=== PATIENT | male | born 1955 | race African-American/Black ===

== ENCOUNTER 2017-04-16 07:05 | Inpatient (IN) | payer MEDICAID ==
[~2017-04-16] VITALS: Ht 193 cm; Wt 126.1 kg
[2017-04-16] MEDS ORDERED: METHYLPREDNISOLONE SOD SUCC 125 MG/2 ML VIAL IV STA (07:55)
[2017-04-16] MEDS ORDERED: ONDANSETRON HCL 4MG/2ML VIAL IV STA (07:55)
[2017-04-16] MEDS ORDERED: MORPHINE SULFATE 4 MG/ML CPJ (NOT FOR IM USE) IV STA (07:55)
[2017-04-16] MEDS ORDERED: IPRATROPIUM/ALBUTEROL 0.5-3(2.5)MG/3ML NEB HHN ONE (08:00)
[2017-04-16 08:27] LABS: BASOPHILS % 0.5 % (0.0-2.0); EOSINOPHILS % 6.4 % (0.0-5.0); HEMATOCRIT. 37.9 % (42.0-52.0); HEMOGLOBIN. 12.5 g/dL (14.0-18.0); LYMPHOCYTES % 16.3 % (20.0-50.0); MEAN CORPUSCULAR HEMOGLOBIN 29.4 pg (28.0-32.0); MEAN CORPUSCULAR VOLUME 88.8 fL (80.0-94.0); MEAN PLATELET VOLUME 9.7 fl (7.4-10.4); MONOCYTES % 10.7 % (2.0-8.0); NEUTROPHILS % 66.1 % (40.0-76.0); PLATELET 175 x1000/uL (130-400); RED BLOOD CELL COUNT 4.27 mill/uL (4.7-6.1); RED CELL DISTRIBUTION WIDTH 15.7 % (11.6-14.6)
[2017-04-16 08:39] LABS: D-DIMER 0.81 mg/L FEU (<0.50); INR 1.1; PARTIAL THROMBOPLASTIN TIME 35.7 sec (23.4-31.0)
[2017-04-16 08:42] LABS: CARBON DIOXIDE 28 mEq/L (21-32); CHLORIDE 108 mEq/L (98-107); ETHANOL BLOOD < 10 mg/dL; TROPONIN I 0.03 ng/mL (0.00-0.04)
[2017-04-16 09:20] LABS: *AMPHETAMINES SCREEN URINE NEGATIVE (NEGATIVE); *BARBITURATES SCREEN URINE NEGATIVE (NEGATIVE); *BENZODIAZEPINES SCREEN URINE NEGATIVE (NEGATIVE); *COCAINE SCREEN URINE PRESUMTIVE POSITIVE (NEGATIVE); CANNABINOID URINE SCREEN NEGATIVE (NEGATIVE); METHADONE URINE SCREEN NEGATIVE (NEGATIVE); OPIATES URINE SCREEN NEGATIVE (NEGATIVE); PHENCYCLIDINE URINE SCREEN NEGATIVE (NEGATIVE)
[2017-04-16] MEDS ORDERED: FUROSEMIDE 40MG/4ML VIAL IVP ONE (11:30)
[2017-04-16] MEDS ORDERED: ACETAMINOPHEN 325MG TABLET PO PRN (11:45)
[2017-04-16] MEDS ORDERED: IPRATROPIUM/ALBUTEROL 0.5-3(2.5)MG/3ML NEB INH PRN (11:45)
[2017-04-16] MEDS ORDERED: MAGNESIUM/ALUMINUM HYDROXIDE/SIMETHICONE 30ML UDC PO PRN (11:45)
[2017-04-16] MEDS ORDERED: HYDROCODONE/ACETAMINOPHEN 5/325MG TABLET PO PRN (11:45)
[2017-04-16] MEDS ORDERED: DOCUSATE SODIUM 100MG CAPSULE PO PRN (11:45)
[2017-04-16] MEDS ORDERED: CEFTRIAXONE 1 G PREMIX 50 ML IV NR (12:30)
[2017-04-16] MEDS: CLONIDINE 0.1MG TABLET PO PRN (12:43)
[2017-04-16] MEDS: DILTIAZEM HCL 60MG TABLET PO SCH ×2 (12:44→17:43)
[2017-04-16] MEDS: AZITHROMYCIN 500 MG TABLET PO SCH (12:44)
[2017-04-16] MEDS ORDERED: IOHEXOL-300 100 ML BOTTLE ONE (13:24)
[2017-04-16] MEDS ORDERED: SODIUM CHLORIDE 0.9% 10ML VIAL ONE (13:24)
[2017-04-16 13:42] LABS: BG BASE EXCESS 2.3 mmol/L (-2.0-2.0); BG CARBOXYHEMOGLOBIN 3.1 % (0.5-1.5); BG FRACTION INSPIRED OXYGEN 28; BG HCO3 ACT 31.2 mmol/L (22.0-26.0); BG METHEMOGLOBIN 0.2 % (0.0-1.5); BG OXYGEN SATURATION 93.8 % (92.0-98.5); BG OXYHEMOGLOBIN 90.7 % (94.0-97.0); BG PCO2 68.3 mmHg (35.0-45.0); BG PH 7.278 (7.350-7.450); BG PO2 73.3 mmHg (75.0-100.0); BG SAMPLE SITE LEFT RADIAL; BG TOTAL HEMOGLOBIN 14.6 g/dL (12.0-18.0); BG VENT MODE NASAL CANNULA
[2017-04-16 14:58] VITALS: BP 144/78
[2017-04-16 15:00] VITALS: BP 144/78
[2017-04-16 16:00] VITALS: BP_SYST 141; BP_SYST 144; BP_DIAS 64; BP_DIAS 78
[2017-04-16 17:19] LABS: CREATINE KINASE MB FRACTION 3.7 ng/mL (0.5-3.6); TROPONIN I 0.02 ng/mL (0.00-0.04)
[2017-04-16] MEDS: FUROSEMIDE 40MG/4ML VIAL IV SCH (17:44)
[2017-04-16 18:46] LABS: CLARITY URINE CLEAR (CLEAR); COLOR URINE YELLOW (YELLOW); GLUCOSE URINE 1+ (NEGATIVE); KETONES URINE NEGATIVE (NEGATIVE); LEUKOCYTE ESTERASE URINE NEGATIVE (NEGATIVE); NITRITE URINE NEGATIVE (NEGATIVE); OCCULT BLOOD URINE NEGATIVE (NEGATIVE); PROTEIN URINE NEGATIVE (NEGATIVE); SPECIFIC GRAVITY URINE 1.017 (1.005-1.030)
[2017-04-16 20:00] VITALS: BP 143/82
[2017-04-16] MEDS: ENOXAPARIN 40MG/0.4ML SYR SUBCUT SCH (21:27)
[2017-04-17] VITALS: BP 131/81
[2017-04-17] MEDS: IPRATROPIUM/ALBUTEROL 0.5-3(2.5)MG/3ML NEB HHN SCH ×4 (00:18→22:40)
[2017-04-17] MEDS: DILTIAZEM HCL 60MG TABLET PO SCH ×4 (00:20→18:06)
[2017-04-17 00:48] LABS: CREATINE KINASE 174 IU/L (39-308); TROPONIN I < 0.02 ng/mL (0.00-0.04)
[2017-04-17 04:00] VITALS: BP 151/94
[2017-04-17 08:00] VITALS: BP 111/59
[2017-04-17] MEDS ORDERED: INFLUENZA VIRUS VACCINE 0.5ML SYR IM ONE (08:00)
[2017-04-17] MEDS: BUDESONIDE 0.5MG/2ML NEB HHN SCH ×2 (08:16→22:40)
[2017-04-17] MEDS: FUROSEMIDE 40MG/4ML VIAL IV SCH ×2 (08:55→18:06)
[2017-04-17] MEDS: AZITHROMYCIN 500 MG TABLET PO SCH (08:56)
[2017-04-17] MEDS: ASPIRIN 81MG EC TABLET PO SCH (08:56)
[2017-04-17] MEDS: ENOXAPARIN 40MG/0.4ML SYR SUBCUT SCH (08:56)
[2017-04-17] MEDS ORDERED: CEFTRIAXONE 1 G PREMIX 50 ML IV SCH (09:00)
[2017-04-17 10:08] LABS: CARBON DIOXIDE 35 mEq/L (21-32); CHLORIDE 97 mEq/L (98-107); HDL CHOLESTEROL 60 mg/dL (40-59); LDL CHOLESTEROL 77 mg/dL (5-100)
[2017-04-17 12:00] VITALS: BP 110/56
[2017-04-17 12:13] LABS: T4 FREE 1.05 ng/dL (0.76-1.46)
[2017-04-17 16:00] VITALS: BP 127/67
[2017-04-17 20:00] VITALS: BP 140/76
[2017-04-17] MEDS: ENOXAPARIN 30MG/0.3ML SYR SUBCUT SCH (21:37)
[2017-04-18] VITALS: BP 141/77
[2017-04-18] MEDS: DILTIAZEM HCL 60MG TABLET PO SCH ×2 (00:48→06:18)
[2017-04-18 04:00] VITALS: BP 146/93
[2017-04-18] MEDS: IPRATROPIUM/ALBUTEROL 0.5-3(2.5)MG/3ML NEB HHN SCH ×2 (05:00→09:11)
[2017-04-18] MEDS: ONDANSETRON HCL 4MG/2ML VIAL IV PRN ×2 (05:18→13:27)
[2017-04-18] MEDS ORDERED: INFLUENZA VIRUS VACCINE 0.5ML SYR IM ONE (06:00)
[2017-04-18 07:12] LABS: CARBON DIOXIDE 36 mEq/L (21-32)
[2017-04-18 07:30] LABS: CHLORIDE 100 mEq/L (98-107)
[2017-04-18 08:00] VITALS: BP 152/99
[2017-04-18] MEDS: BUDESONIDE 0.5MG/2ML NEB HHN SCH (09:11)
[2017-04-18] MEDS: FUROSEMIDE 40MG/4ML VIAL IV SCH (10:26)
[2017-04-18] MEDS: AZITHROMYCIN 500 MG TABLET PO SCH (10:26)
[2017-04-18] MEDS: ASPIRIN 81MG EC TABLET PO SCH (10:26)
[2017-04-18] MEDS: CLONIDINE 0.1MG TABLET PO PRN (10:27)
[2017-04-18] MEDS: ENOXAPARIN 30MG/0.3ML SYR SUBCUT SCH (10:27)
[2017-04-18] MEDS ORDERED: CEFTRIAXONE 1 G PREMIX 50 ML IV SCH (11:00)
[2017-04-18] MEDS ORDERED: POTASSIUM CHLORIDE 20MEQ TABLET SR PO NR (11:15)
[2017-04-18] MEDS ORDERED: DILT240C91 PO (11:56)
[2017-04-18] MEDS ORDERED: FURO-151 PO (11:56)
[2017-04-18] MEDS ORDERED: AZIT500T5 PO (11:56)
[2017-04-18] MEDS ORDERED: KDUR20 PO (11:56)
[2017-04-18] MEDS ORDERED: PULM50 HHN (11:56)
[2017-04-18] MEDS ORDERED: ASPI-1158 PO (11:56)
[2017-04-18] MEDS ORDERED: ALBU6.7H INH (11:58)
[2017-04-18 12:00] VITALS: BP 125/81
[2017-04-18 13:02] VITALS: BP 125/81
[2017-04-18] MEDS ORDERED: DILTIAZEM HCL 240MG ER (24HR) PO SCH (21:00)
== END 2017-04-18 13:50 | disposition home or self-care (01) | DRG 816 ==
LOC: ER 07:29 → EDBEDREQ 08:09 → 5WST 12:09 → EDBEDREQ 12:12 → EDBEDREQTM 12:12 → ENRESERV 12:17
PROVIDERS: ADMIT Internal Medicine; ATTEND Internal Medicine
PROC: 5A09357 Assistance with Respiratory Ventilation, Less than 24 Consecutive Hours, Continuous Positive Airway Pressure (ICD-10-PCS; principal; 2017-04-16)
DX: T40.5X1A Poisoning by cocaine, accidental (unintentional), initial encounter (principal); J96.02 Acute respiratory failure with hypercapnia; G93.40 Encephalopathy, unspecified; I50.33 Acute on chronic diastolic (congestive) heart failure; J44.1 Chronic obstructive pulmonary disease with (acute) exacerbation; I11.0 Hypertensive heart disease with heart failure; E87.2 Acidosis; B19.20 Unspecified viral hepatitis C without hepatic coma; F14.10 Cocaine abuse, uncomplicated; G47.30 Sleep apnea, unspecified; E66.01 Morbid (severe) obesity due to excess calories; F17.210 Nicotine dependence, cigarettes, uncomplicated
CPT/HCPCS: 36415; 36600; 71010; 74177; 80048; 80053; 80061; 80305; 81001; 82105; 82375; 82550; 82553; 82805; 83605; 83690; 83735; 83880; 84439; 84443; 84481; 84484; 85025; 85379; 85610; 85730; 87040; 87070; 87086; 90686; 92950; 93005; 93306; 93970; 94640; 94660; 96365; 96375; 99285; 99406; A4216; G0482; J0696; J1650; J1940; J2270; J2405; J2930; J7030; J7620; J7626; Q9967

== ENCOUNTER 2017-08-03 04:59 | Inpatient (IN) | payer MEDICAID ==
[~2017-08-03] VITALS: Ht 188 cm; Wt 121.6 kg
[~2017-08-03 04:59] MED LIST: ALBU6.7H INH; ASPI-1158 PO; AZIT500T5 PO; DILT240C91 PO; FURO-151 PO; KDUR20 PO; PULM50 HHN
[2017-08-03 05:40] LABS: BASOPHILS % 0.6 % (0.0-2.0); HEMATOCRIT. 41.9 % (42.0-52.0); HEMOGLOBIN. 14.1 g/dL (14.0-18.0); MEAN CORPUSCULAR HEMOGLOBIN 29.1 pg (28.0-32.0); MEAN CORPUSCULAR VOLUME 86.6 fL (80.0-94.0); MEAN PLATELET VOLUME 9.6 fl (7.4-10.4); MONOCYTES % 9.6 % (2.0-8.0); NEUTROPHILS % 69.8 % (40.0-76.0); PLATELET 189 x1000/uL (130-400); RED BLOOD CELL COUNT 4.84 mill/uL (4.7-6.1); RED CELL DISTRIBUTION WIDTH 15.3 % (11.6-14.6)
[2017-08-03 05:57] LABS: CARBON DIOXIDE 27 mEq/L (21-32); CHLORIDE 106 mEq/L (98-107); TROPONIN I 0.03 ng/mL (0.00-0.04)
[2017-08-03] MEDS ORDERED: METHYLPREDNISOLONE SOD SUCC 125 MG/2 ML VIAL IV STA (06:00)
[2017-08-03] MEDS ORDERED: IPRATROPIUM BROMIDE (0.02%) 0.5MG/2.5ML NEB HHN STA (06:00)
[2017-08-03] MEDS ORDERED: ALBUTEROL (0.083%) 2.5MG/3ML NEB HHN STA (06:00)
[2017-08-03] MEDS ORDERED: CLONIDINE 0.1MG TABLET PO PRN (07:08)
[2017-08-03 17:20] VITALS: BP 135/82
[2017-08-03] MEDS ORDERED: HYDROCODONE/ACETAMINOPHEN 5/325MG TABLET PO PRN (17:30)
[2017-08-03] MEDS: METHYLPREDNISOLONE SOD SUCC 40 MG/ML VIAL IV SCH (18:24)
[2017-08-03] MEDS: ENOXAPARIN 30MG/0.3ML SYR SUBCUT SCH (18:24)
[2017-08-03] MEDS ORDERED: LEVOFLOXACIN 500MG PREMIX 100 ML IV SCH (19:30)
[2017-08-03 20:00] VITALS: BP 132/82
[2017-08-03] MEDS: ALBUTEROL (0.083%) 2.5MG/3ML NEB HHN SCH (20:31)
[2017-08-03] MEDS: OMEPRAZOLE 20MG CAPSULE EXTENDED RELEASE PO SCH (20:51)
[2017-08-04] VITALS: BP 124/74
[2017-08-04] MEDS: METHYLPREDNISOLONE SOD SUCC 40 MG/ML VIAL IV SCH ×2 (01:13→09:04)
[2017-08-04] MEDS: ALBUTEROL (0.083%) 2.5MG/3ML NEB HHN SCH ×4 (03:38→12:40)
[2017-08-04 04:00] VITALS: BP 135/71
[2017-08-04] MEDS: ENOXAPARIN 30MG/0.3ML SYR SUBCUT SCH (06:26)
[2017-08-04] MEDS: OMEPRAZOLE 20MG CAPSULE EXTENDED RELEASE PO SCH (06:26)
[2017-08-04 08:00] VITALS: BP 105/55
[2017-08-04] MEDS ORDERED: BUDESONIDE 0.5MG/2ML NEB HHN SCH (08:00)
[2017-08-04] MEDS ORDERED: FUROSEMIDE 40MG/4ML VIAL IVP SCH (08:15)
[2017-08-04] MEDS ORDERED: FURO-151 PO (10:25)
[2017-08-04] MEDS ORDERED: PULM50 HHN (10:25)
[2017-08-04] MEDS ORDERED: NICO-645 TD (10:27)
[2017-08-04] MEDS ORDERED: DILT240C91 PO (10:30)
[2017-08-04] MEDS ORDERED: POTA20TA82 PO (10:30)
[2017-08-04 12:00] VITALS: BP 106/70
== END 2017-08-04 13:00 | disposition home or self-care (01) | DRG 194 ==
LOC: ER 05:07 → 8WST 06:00 → EDBEDREQ 06:07 → EDBEDREQTM 06:07 → ENRESERV 13:33
PROVIDERS: ADMIT Internal Medicine; ATTEND Internal Medicine
DX: I13.0 Hypertensive heart and chronic kidney disease with heart failure and stage 1 through stage 4 chronic kidney disease, or unspecified chronic kidney disease (principal); N17.9 Acute kidney failure, unspecified; E44.0 Moderate protein-calorie malnutrition; I50.33 Acute on chronic diastolic (congestive) heart failure; J44.9 Chronic obstructive pulmonary disease, unspecified; Z60.2 Problems related to living alone; F17.210 Nicotine dependence, cigarettes, uncomplicated; N18.9 Chronic kidney disease, unspecified; E66.9 Obesity, unspecified; B19.20 Unspecified viral hepatitis C without hepatic coma; Z87.01 Personal history of pneumonia (recurrent); Z86.19 Personal history of other infectious and parasitic diseases; Z79.899 Other long term (current) drug therapy; Z79.82 Long term (current) use of aspirin; Z71.6 Tobacco abuse counseling; Z68.34 Body mass index [BMI] 34.0-34.9, adult; Z71.3 Dietary counseling and surveillance
CPT/HCPCS: 36415; 71045; 80053; 83605; 83880; 84484; 85025; 87040; 93005; 94640; 96374; 99285; J1650; J1940; J1956; J2920; J2930; J7050; J7611; J7626

== ENCOUNTER 2017-10-19 06:51 | Inpatient (IN) | payer SELFPAY ==
[~2017-10-19] VITALS: Ht 193 cm; Wt 117.5 kg
[~2017-10-19 06:51] MED LIST changes: -AZIT500T5 PO; +NICO-645 TD; +POTA20TA82 PO
[2017-10-19] MEDS ORDERED: METHYLPREDNISOLONE SOD SUCC 125 MG/2 ML VIAL IV STA (07:06)
[2017-10-19] MEDS ORDERED: IPRATROPIUM BROMIDE (0.02%) 0.5MG/2.5ML NEB HHN STA (07:06)
[2017-10-19 07:29] LABS: BASOPHILS % 0.7 % (0.0-2.0); EOSINOPHILS % 4.2 % (0.0-5.0); HEMATOCRIT. 40.4 % (42.0-52.0); HEMOGLOBIN. 13.4 g/dL (14.0-18.0); LYMPHOCYTES % 21.4 % (20.0-50.0); MEAN CORPUSCULAR HEMOGLOBIN 29.2 pg (28.0-32.0); MEAN CORPUSCULAR VOLUME 87.9 fL (80.0-94.0); MEAN PLATELET VOLUME 9.4 fl (7.4-10.4); MONOCYTES % 8.7 % (2.0-8.0); PLATELET 239 x1000/uL (130-400); RED CELL DISTRIBUTION WIDTH 15.5 % (11.6-14.6)
[2017-10-19 07:37] LABS: CHLORIDE 108 mEq/L (98-107)
[2017-10-19] MEDS: ALBUTEROL (0.083%) 2.5MG/3ML NEB HHN SCH ×3 (07:40→08:30)
[2017-10-19] MEDS ORDERED: FUROSEMIDE 40MG/4ML VIAL IVP ONE (08:15)
[2017-10-19] MEDS ORDERED: NITROGLYCERIN OINT 1GM/INCH UDPKT TD ONE (08:30)
[2017-10-19] MEDS ORDERED: IPRATROPIUM/ALBUTEROL 0.5-3(2.5)MG/3ML NEB HHN PRN (11:45)
[2017-10-19 12:00] VITALS: BP 151/83
[2017-10-19 13:00] VITALS: BP 151/83
[2017-10-19] MEDS: BUDESONIDE 0.5MG/2ML NEB HHN SCH (13:50)
[2017-10-19] MEDS: IPRATROPIUM/ALBUTEROL 0.5-3(2.5)MG/3ML NEB HHN SCH ×2 (13:50→21:17)
[2017-10-19] MEDS: AMLODIPINE 5MG TABLET PO SCH ×2 (14:26→20:58)
[2017-10-19] MEDS: METHYLPREDNISOLONE SOD SUCC 40 MG/ML VIAL IV SCH ×2 (14:27→20:58)
[2017-10-19] MEDS: ENOXAPARIN 30MG/0.3ML SYR SUBCUT SCH ×2 (14:27→22:56)
[2017-10-19 16:00] VITALS: BP 143/79
[2017-10-19] MEDS ORDERED: CLONIDINE 0.1MG TABLET PO PRN (16:45)
[2017-10-19] MEDS: FUROSEMIDE 40MG/4ML VIAL IVP SCH (18:29)
[2017-10-19 20:00] VITALS: BP 150/93
[2017-10-19] MEDS: DILTIAZEM HCL 240MG ER (24HR) PO SCH (20:58)
[2017-10-19 22:02] LABS: CLARITY URINE CLEAR (CLEAR); COLOR URINE YELLOW (YELLOW); KETONES URINE NEGATIVE (NEGATIVE); LEUKOCYTE ESTERASE URINE 2+ (NEGATIVE); NITRITE URINE NEGATIVE (NEGATIVE); OCCULT BLOOD URINE 3+ (NEGATIVE); PROTEIN URINE 1+ (NEGATIVE); SPECIFIC GRAVITY URINE 1.016 (1.005-1.030)
[2017-10-19 22:14] LABS: *AMPHETAMINES SCREEN URINE NEGATIVE (NEGATIVE); *BARBITURATES SCREEN URINE NEGATIVE (NEGATIVE); *BENZODIAZEPINES SCREEN URINE NEGATIVE (NEGATIVE); *COCAINE SCREEN URINE PRESUMTIVE POSITIVE (NEGATIVE); CANNABINOID URINE SCREEN NEGATIVE (NEGATIVE); METHADONE URINE SCREEN NEGATIVE (NEGATIVE); OPIATES URINE SCREEN NEGATIVE (NEGATIVE); PHENCYCLIDINE URINE SCREEN NEGATIVE (NEGATIVE)
[2017-10-20] VITALS: BP 128/89
[2017-10-20] MEDS: BUDESONIDE 0.5MG/2ML NEB HHN SCH ×3 (02:14→20:16)
[2017-10-20 04:00] VITALS: BP 127/84
[2017-10-20] MEDS: METHYLPREDNISOLONE SOD SUCC 40 MG/ML VIAL IV SCH (05:52)
[2017-10-20 08:00] VITALS: BP 140/84
[2017-10-20] MEDS: IPRATROPIUM/ALBUTEROL 0.5-3(2.5)MG/3ML NEB HHN SCH ×3 (08:41→20:17)
[2017-10-20] MEDS: FUROSEMIDE 40MG/4ML VIAL IVP SCH ×2 (09:49→17:38)
[2017-10-20] MEDS: ASPIRIN 81MG EC TABLET PO SCH (09:50)
[2017-10-20] MEDS: AMLODIPINE 5MG TABLET PO SCH ×2 (09:50→20:25)
[2017-10-20] MEDS: DILTIAZEM HCL 240MG ER (24HR) PO SCH ×2 (09:50→20:24)
[2017-10-20] MEDS: ENOXAPARIN 30MG/0.3ML SYR SUBCUT SCH (11:53)
[2017-10-20 12:00] VITALS: BP 139/83
[2017-10-20] MEDS: TAMSULOSIN HCL 0.4MG SR CAPSULE PO SCH (12:01)
[2017-10-20 16:00] VITALS: BP 128/75
[2017-10-20 16:42] LABS: HEPATITIS B SURFACE ANTIGEN NEGATIVE
[2017-10-20 17:10] LABS: HEPATITIS B CORE AB IGM NEGATIVE
[2017-10-20 17:12] LABS: HEPATITIS A AB IGM NEGATIVE (NEGATIVE)
[2017-10-20 20:00] VITALS: BP 128/67
[2017-10-21] VITALS: BP 130/75
[2017-10-21] MEDS: ENOXAPARIN 30MG/0.3ML SYR SUBCUT SCH (00:02)
[2017-10-21] MEDS: IPRATROPIUM/ALBUTEROL 0.5-3(2.5)MG/3ML NEB HHN SCH ×2 (02:19→07:39)
[2017-10-21 04:00] VITALS: BP 123/77
[2017-10-21] MEDS: BUDESONIDE 0.5MG/2ML NEB HHN SCH (07:39)
[2017-10-21 08:00] VITALS: BP 116/68
[2017-10-21] MEDS: TAMSULOSIN HCL 0.4MG SR CAPSULE PO SCH (08:46)
[2017-10-21] MEDS: ASPIRIN 81MG EC TABLET PO SCH (08:47)
[2017-10-21] MEDS: FUROSEMIDE 40MG/4ML VIAL IVP SCH (08:47)
[2017-10-21] MEDS: AMLODIPINE 5MG TABLET PO SCH (08:47)
[2017-10-21] MEDS: DILTIAZEM HCL 240MG ER (24HR) PO SCH (08:47)
[2017-10-21] MEDS ORDERED: PREDNISONE 20MG TABLET PO SCH (09:00)
[2017-10-21 10:47] VITALS: BP 113/60
[2017-10-21 10:48] VITALS: BP 113/60
== END 2017-10-21 12:50 | disposition home or self-care (01) | DRG 194 ==
LOC: ER 06:55 → 5WST 11:25 → ENRESERV 11:47 → EDBEDREQ 12:09
PROVIDERS: ADMIT Internal Medicine; ATTEND Internal Medicine
DX: I13.0 Hypertensive heart and chronic kidney disease with heart failure and stage 1 through stage 4 chronic kidney disease, or unspecified chronic kidney disease (principal); E43 Unspecified severe protein-calorie malnutrition; I42.9 Cardiomyopathy, unspecified; B19.20 Unspecified viral hepatitis C without hepatic coma; I50.43 Acute on chronic combined systolic (congestive) and diastolic (congestive) heart failure; D64.9 Anemia, unspecified; Z68.31 Body mass index [BMI] 31.0-31.9, adult; E66.9 Obesity, unspecified; F14.90 Cocaine use, unspecified, uncomplicated; J44.1 Chronic obstructive pulmonary disease with (acute) exacerbation; N18.9 Chronic kidney disease, unspecified; Z91.14 Patient's other noncompliance with medication regimen
CPT/HCPCS: 36415; 71045; 80053; 80305; 81003; 83880; 84484; 85025; 86705; 86709; 86803; 87340; 93005; 93306; 94640; 94644; 96374; 96375; 99285; J1650; J1940; J2920; J2930; J7512; J7611; J7620; J7626; A4315

== ENCOUNTER 2017-11-09 19:21 | Inpatient (IN) | payer SELFPAY ==
[~2017-11-09] VITALS: Ht 193 cm; Wt 112.6 kg
[~2017-11-09 19:21] MED LIST changes: -KDUR20 PO; -NICO-645 TD
[2017-11-09 20:27] LABS: CHLORIDE 106 mEq/L (98-107)
[2017-11-09 20:28] LABS: BASOPHILS % 0.5 % (0.0-2.0); EOSINOPHILS % 2.1 % (0.0-5.0); HEMATOCRIT. 37.9 % (42.0-52.0); HEMOGLOBIN. 12.9 g/dL (14.0-18.0); LYMPHOCYTES % 12.9 % (20.0-50.0); MEAN CORPUSCULAR HEMOGLOBIN 29.3 pg (28.0-32.0); MEAN CORPUSCULAR VOLUME 86.3 fL (80.0-94.0); MEAN PLATELET VOLUME 10.2 fl (7.4-10.4); MONOCYTES % 8.7 % (2.0-8.0); NEUTROPHILS % 75.8 % (40.0-76.0); PLATELET 157 x1000/uL (130-400); RED BLOOD CELL COUNT 4.39 mill/uL (4.7-6.1); RED CELL DISTRIBUTION WIDTH 15.6 % (11.6-14.6)
[2017-11-09 20:29] LABS: INR 1.1; PROTHROMBIN TIME 10.9 sec (9.4-11.6)
[2017-11-09] MEDS ORDERED: ENALAPRIL 2.5MG/2ML VIAL 2ML IV ONE (21:00)
[2017-11-09] MEDS ORDERED: FUROSEMIDE 40MG/4ML VIAL IVP ONE (21:00)
[2017-11-09] MEDS ORDERED: ASPIRIN 325MG EC TABLET PO ONE (21:00)
[2017-11-09] MEDS ORDERED: GUAIFENESIN 200MG/10ML SUGAR FREE UDC PO PRN (22:00)
[2017-11-09] MEDS ORDERED: DIPHENHYDRAMINE 50MG/ML VIAL IV PRN (22:00)
[2017-11-09] MEDS ORDERED: IPRATROPIUM/ALBUTEROL 0.5-3(2.5)MG/3ML NEB INH PRN (22:00)
[2017-11-09] MEDS ORDERED: ACETAMINOPHEN 650MG/20.3ML UDC GT PRN (22:00)
[2017-11-09] MEDS ORDERED: NA PHOS,M-B/NA PHOS,DI-BA ENEMA 118ML PR PRN (22:00)
[2017-11-09] MEDS ORDERED: ACETAMINOPHEN 650MG SUPP PR PRN (22:00)
[2017-11-09] MEDS ORDERED: ENOXAPARIN 40MG/0.4ML SYR SUBCUT SCH (22:00)
[2017-11-09] MEDS ORDERED: ACETAMINOPHEN 325MG TABLET PO PRN (22:00)
[2017-11-09] MEDS ORDERED: HYDROCODONE/ACETAMINOPHEN 5/325MG TABLET PO PRN (22:00)
[2017-11-09] MEDS ORDERED: CLONIDINE 0.1MG TABLET PO PRN (22:00)
[2017-11-09] MEDS ORDERED: NITROGLYCERIN 0.4MG TABLET SL SL PRN (22:15)
[2017-11-09 23:35] LABS: CLARITY URINE CLEAR (CLEAR); COLOR URINE YELLOW (YELLOW); KETONES URINE NEGATIVE (NEGATIVE); LEUKOCYTE ESTERASE URINE NEGATIVE (NEGATIVE); NITRITE URINE NEGATIVE (NEGATIVE); OCCULT BLOOD URINE NEGATIVE (NEGATIVE); PH URINE 7.5 (4.5-8.0); PROTEIN URINE NEGATIVE (NEGATIVE); SPECIFIC GRAVITY URINE 1.006 (1.005-1.030); UROBILINOGEN URINE 0.2 E.U./dL (0.2-1.0)
[2017-11-09 23:48] LABS: *AMPHETAMINES SCREEN URINE NEGATIVE (NEGATIVE); *BARBITURATES SCREEN URINE NEGATIVE (NEGATIVE); *BENZODIAZEPINES SCREEN URINE NEGATIVE (NEGATIVE); *COCAINE SCREEN URINE PRESUMTIVE POSITIVE (NEGATIVE); METHADONE URINE SCREEN NEGATIVE (NEGATIVE); OPIATES URINE SCREEN NEGATIVE (NEGATIVE)
[2017-11-09 23:49] LABS: CANNABINOID URINE SCREEN NEGATIVE (NEGATIVE); PHENCYCLIDINE URINE SCREEN NEGATIVE (NEGATIVE)
[2017-11-10] MEDS: MAGNESIUM/ALUMINUM HYDROXIDE/SIMETHICONE 30ML UDC PO PRN ×2 (03:19→18:45)
[2017-11-10] MEDS: ONDANSETRON HCL 4MG/2ML VIAL IV PRN ×2 (03:19→18:24)
[2017-11-10 04:10] VITALS: BP 97/73
[2017-11-10] MEDS ORDERED: LORAZEPAM 0.5MG TABLET PO PRN (04:47)
[2017-11-10 07:13] LABS: BASOPHILS % 0.4 % (0.0-2.0); EOSINOPHILS % 2.4 % (0.0-5.0); HEMATOCRIT. 39.7 % (42.0-52.0); HEMOGLOBIN. 13.2 g/dL (14.0-18.0); LYMPHOCYTES % 15.5 % (20.0-50.0); MEAN CORPUSCULAR HEMOGLOBIN 28.9 pg (28.0-32.0); MEAN CORPUSCULAR VOLUME 86.6 fL (80.0-94.0); MEAN PLATELET VOLUME 10.9 fl (7.4-10.4); MONOCYTES % 11.5 % (2.0-8.0); NEUTROPHILS % 70.2 % (40.0-76.0); PLATELET 172 x1000/uL (130-400); RED BLOOD CELL COUNT 4.58 mill/uL (4.7-6.1)
[2017-11-10 08:00] VITALS: BP 117/72
[2017-11-10 08:23] LABS: CHLORIDE 104 mEq/L (98-107)
[2017-11-10 08:55] LABS: LDL CHOLESTEROL 74 mg/dL (5-100)
[2017-11-10 08:57] LABS: CREATINE KINASE 72 IU/L (39-308); HDL CHOLESTEROL 64 mg/dL (40-59)
[2017-11-10 09:00] LABS: CREATINE KINASE MB FRACTION 1.5 ng/mL (0.5-3.6)
[2017-11-10] MEDS: FUROSEMIDE 40MG/4ML VIAL IV SCH (09:31)
[2017-11-10] MEDS: SODIUM CHLORIDE 0.9% INJ 3ML FLUSH IVF SCH ×3 (09:31→22:30)
[2017-11-10] MEDS: ENOXAPARIN 30MG/0.3ML SYR SUBCUT SCH ×2 (09:32→22:30)
[2017-11-10 12:00] VITALS: BP 130/94
[2017-11-10 16:51] VITALS: BP 117/87
[2017-11-10 20:00] VITALS: BP 128/96
[2017-11-10] MEDS ORDERED: FAMOTIDINE 20MG TABLET PO SCH (21:00)
[2017-11-11] VITALS: BP 118/94
[2017-11-11 01:15] LABS: CREATINE KINASE MB FRACTION 1.3 ng/mL (0.5-3.6)
[2017-11-11 04:00] VITALS: BP 125/88
[2017-11-11] MEDS: SODIUM CHLORIDE 0.9% INJ 3ML FLUSH IVF SCH (05:12)
[2017-11-11 08:00] VITALS: BP 126/83
[2017-11-11] MEDS: ENOXAPARIN 30MG/0.3ML SYR SUBCUT SCH (08:36)
[2017-11-11] MEDS ORDERED: ASPIRIN 81MG TABLET PO SCH (09:00)
[2017-11-11 09:12] LABS: CREATINE KINASE 50 IU/L (39-308)
[2017-11-11 09:13] LABS: CREATINE KINASE MB FRACTION 1.5 ng/mL (0.5-3.6)
[2017-11-11] MEDS: FUROSEMIDE 40MG/4ML VIAL IV SCH (09:34)
[2017-11-11] MEDS ORDERED: LOSARTAN POTASSIUM 25 MG TABLET PO SCH (10:00)
[2017-11-11 10:15] VITALS: BP 105/66
[2017-11-11 12:00] VITALS: BP 99/63
[2017-11-11 14:56] LABS: CREATINE KINASE 50 IU/L (39-308)
[2017-11-11 14:57] LABS: CREATINE KINASE MB FRACTION 1.7 ng/mL (0.5-3.6)
== END 2017-11-11 16:12 | disposition home or self-care (01) | DRG 203 ==
LOC: EDBEDREQ 21:12 → EDBEDREQTM 21:12 → ER 21:27 → 7WST 21:28 → ENRESERV 11-10 03:40
PROVIDERS: ADMIT Family Medicine; ATTEND Family Medicine
DX: R07.89 Other chest pain (principal); I11.0 Hypertensive heart disease with heart failure; I50.9 Heart failure, unspecified; B19.20 Unspecified viral hepatitis C without hepatic coma; J44.9 Chronic obstructive pulmonary disease, unspecified; F17.200 Nicotine dependence, unspecified, uncomplicated; F14.90 Cocaine use, unspecified, uncomplicated; F10.10 Alcohol abuse, uncomplicated; E78.5 Hyperlipidemia, unspecified; E66.9 Obesity, unspecified; Z68.30 Body mass index [BMI] 30.0-30.9, adult
CPT/HCPCS: 36415; 71045; 80053; 80061; 80305; 81003; 82550; 82553; 83880; 84484; 85025; 85379; 85610; 93005; 93306; 94640; 96374; 96375; 96376; 99285; J1650; J1940; J2405; J3490; J7620

== ENCOUNTER 2018-01-21 05:18 | Inpatient (IN) | payer SELFPAY ==
[~2018-01-21] VITALS: Ht 193 cm; Wt 129.3 kg
[2018-01-21] MEDS ORDERED: IPRATROPIUM BROMIDE (0.02%) 0.5MG/2.5ML NEB HHN STA (06:23)
[2018-01-21] MEDS ORDERED: ALBUTEROL (0.083%) 2.5MG/3ML NEB HHN STA (06:23)
[2018-01-21] MEDS ORDERED: METHYLPREDNISOLONE SOD SUCC 125 MG/2 ML VIAL IV STA (06:23)
[2018-01-21] MEDS ORDERED: FUROSEMIDE 40MG/4ML VIAL IV STA (06:23)
[2018-01-21 07:15] LABS: BASOPHILS % 0.6 % (0.0-2.0); EOSINOPHILS % 2.7 % (0.0-5.0); HEMATOCRIT. 35.5 % (42.0-52.0); HEMOGLOBIN. 11.6 g/dL (14.0-18.0); LYMPHOCYTES % 24.4 % (20.0-50.0); MEAN CORPUSCULAR HEMOGLOBIN 28.4 pg (28.0-32.0); MEAN CORPUSCULAR VOLUME 86.8 fL (80.0-94.0); MEAN PLATELET VOLUME 9.9 fl (7.4-10.4); MONOCYTES % 10.9 % (2.0-8.0); NEUTROPHILS % 61.4 % (40.0-76.0); PLATELET 156 x1000/uL (130-400); RED BLOOD CELL COUNT 4.09 mill/uL (4.7-6.1); RED CELL DISTRIBUTION WIDTH 16.9 % (11.6-14.6)
[2018-01-21 07:22] LABS: CHLORIDE 110 mEq/L (98-107); INR 1.1; PROTHROMBIN TIME 11.7 sec (9.4-11.6)
[2018-01-21] MEDS ORDERED: ACETAMINOPHEN 325MG TABLET PO PRN (08:45)
[2018-01-21] MEDS ORDERED: POTASSIUM CHLORIDE 20MEQ TABLET SR PO SCH (11:00)
[2018-01-21] MEDS ORDERED: ONDANSETRON HCL 4MG/2ML VIAL IV PRN (16:30)
[2018-01-21] MEDS ORDERED: DIPHENHYDRAMINE 50MG/ML VIAL IV PRN (16:30)
[2018-01-21] MEDS ORDERED: MAGNESIUM/ALUMINUM HYDROXIDE/SIMETHICONE 30ML UDC PO PRN (16:30)
[2018-01-21] MEDS ORDERED: IPRATROPIUM/ALBUTEROL 0.5-3(2.5)MG/3ML NEB INH PRN (16:30)
[2018-01-21] MEDS ORDERED: KETOROLAC 15MG/ML VIAL IV PRN (16:30)
[2018-01-21] MEDS ORDERED: CLONIDINE 0.1MG TABLET PO PRN (16:30)
[2018-01-21] MEDS ORDERED: DOCUSATE SODIUM 100MG CAPSULE PO PRN (16:30)
[2018-01-21] MEDS ORDERED: NITROGLYCERIN 0.4MG TABLET SL SL PRN (16:30)
[2018-01-21] MEDS ORDERED: LORAZEPAM 2MG/ML CPJ IV PRN (16:30)
[2018-01-21] MEDS ORDERED: GUAIFENESIN 200MG/10ML SUGAR FREE UDC PO PRN (16:30)
[2018-01-21 17:26] LABS: CREATINE KINASE 123 IU/L (39-308)
[2018-01-21] MEDS ORDERED: ZOLPIDEM TARTRATE 5MG TABLET PO PRN (21:00)
[2018-01-21] MEDS ORDERED: NA PHOS,M-B/NA PHOS,DI-BA ENEMA 118ML PR PRN (21:00)
[2018-01-21] MEDS ORDERED: FUROSEMIDE 40MG/4ML VIAL IVP SCH (21:00)
[2018-01-21 22:00] VITALS: BP 143/90
[2018-01-21] MEDS: LISINOPRIL 20MG TABLET PO SCH (22:19)
[2018-01-21] MEDS: FAMOTIDINE 20MG TABLET PO SCH (22:19)
[2018-01-21] MEDS: ENOXAPARIN 40MG/0.4ML SYR SUBCUT SCH (22:20)
[2018-01-21] MEDS: SPIRONOLACTONE 25MG TABLET PO SCH (22:20)
[2018-01-22] VITALS: BP 130/80
[2018-01-22 00:48] LABS: CREATINE KINASE 148 IU/L (39-308)
[2018-01-22 00:49] LABS: CREATINE KINASE MB FRACTION 3.4 ng/mL (0.5-3.6)
[2018-01-22 04:00] VITALS: BP 136/88
[2018-01-22 08:00] VITALS: BP 130/90
[2018-01-22] MEDS ORDERED: ASPIRIN 325MG EC TABLET PO SCH (09:00)
[2018-01-22] MEDS ORDERED: FUROSEMIDE 40MG TABLET PO SCH (09:00)
[2018-01-22] MEDS: LISINOPRIL 20MG TABLET PO SCH (09:15)
[2018-01-22] MEDS: SPIRONOLACTONE 25MG TABLET PO SCH (09:15)
[2018-01-22] MEDS: FAMOTIDINE 20MG TABLET PO SCH (09:15)
[2018-01-22] MEDS: ENOXAPARIN 40MG/0.4ML SYR SUBCUT SCH (09:15)
[2018-01-22 10:33] VITALS: BP 130/90
== END 2018-01-22 11:50 | disposition home or self-care (01) | DRG 194 ==
LOC: ER 05:21 → EDBEDREQ 08:14 → ENRESERV 19:56 → OBSVTOIN 21:21 → 8WST 21:21
PROVIDERS: ADMIT Internal Medicine; ATTEND Internal Medicine
DX: I11.0 Hypertensive heart disease with heart failure (principal); N17.0 Acute kidney failure with tubular necrosis; I50.43 Acute on chronic combined systolic (congestive) and diastolic (congestive) heart failure; J44.9 Chronic obstructive pulmonary disease, unspecified; F10.11 Alcohol abuse, in remission; F19.11 Other psychoactive substance abuse, in remission; E44.1 Mild protein-calorie malnutrition; D64.9 Anemia, unspecified; E87.0 Hyperosmolality and hypernatremia; Z87.891 Personal history of nicotine dependence; Z68.34 Body mass index [BMI] 34.0-34.9, adult; Z79.899 Other long term (current) drug therapy
CPT/HCPCS: 36415; 71045; 80053; 80061; 82550; 82553; 83036; 83605; 83690; 83880; 84484; 85025; 85610; 87040; 93005; 93970; 94640; G0378; J1650; J1940; J2930; J7611

== ENCOUNTER 2018-01-29 06:57 | Inpatient (IN) | payer SELFPAY ==
[~2018-01-29] VITALS: Ht 193 cm; Wt 124.7 kg
[2018-01-29] MEDS ORDERED: METHYLPREDNISOLONE SOD SUCC 125 MG/2 ML VIAL IV STA (07:08)
[2018-01-29] MEDS ORDERED: FUROSEMIDE 40MG/4ML VIAL IV STA (07:08)
[2018-01-29] MEDS ORDERED: IPRATROPIUM/ALBUTEROL 0.5-3(2.5)MG/3ML NEB HHN ONE (07:15)
[2018-01-29 08:00] LABS: HEMOGLOBIN. 11.9 g/dL (14.0-18.0); MEAN CORPUSCULAR HEMOGLOBIN 27.9 pg (28.0-32.0); MEAN CORPUSCULAR VOLUME 86.3 fL (80.0-94.0); MEAN PLATELET VOLUME 9.8 fl (7.4-10.4); PLATELET 179 x1000/uL (130-400); RED BLOOD CELL COUNT 4.28 mill/uL (4.7-6.1); RED CELL DISTRIBUTION WIDTH 16.3 % (11.6-14.6)
[2018-01-29 08:04] LABS: CHLORIDE 107 mEq/L (98-107)
[2018-01-29 08:07] LABS: INR 1.1; PARTIAL THROMBOPLASTIN TIME 34.6 sec (23.4-31.0); PROTHROMBIN TIME 11.4 sec (9.4-11.6)
[2018-01-29 09:15] LABS: PLATELET ESTIMATE NORMAL
[2018-01-29] MEDS ORDERED: LORAZEPAM 0.5MG TABLET PO PRN (10:15)
[2018-01-29] MEDS ORDERED: IPRATROPIUM/ALBUTEROL 0.5-3(2.5)MG/3ML NEB INH PRN (10:15)
[2018-01-29] MEDS ORDERED: DIPHENHYDRAMINE 50MG/ML VIAL IV PRN (10:15)
[2018-01-29] MEDS ORDERED: DOCUSATE SODIUM 100MG CAPSULE PO PRN (10:15)
[2018-01-29] MEDS ORDERED: ONDANSETRON HCL 4MG/2ML VIAL IV PRN (10:15)
[2018-01-29] MEDS ORDERED: CLONIDINE 0.1MG TABLET PO PRN (10:15)
[2018-01-29] MEDS ORDERED: ZOLPIDEM TARTRATE 5MG TABLET PO PRN (10:15)
[2018-01-29] MEDS ORDERED: GUAIFENESIN 200MG/10ML SUGAR FREE UDC PO PRN (10:15)
[2018-01-29] MEDS ORDERED: NITROGLYCERIN 0.4MG TABLET SL SL PRN (10:15)
[2018-01-29] MEDS ORDERED: ACETAMINOPHEN 325MG TABLET PO PRN (10:15)
[2018-01-29] MEDS ORDERED: NA PHOS,M-B/NA PHOS,DI-BA ENEMA 118ML PR PRN (10:15)
[2018-01-29] MEDS ORDERED: MAGNESIUM/ALUMINUM HYDROXIDE/SIMETHICONE 30ML UDC PO PRN (10:15)
[2018-01-29] MEDS ORDERED: KETOROLAC 15MG/ML VIAL IV PRN (10:15)
[2018-01-29 11:32] VITALS: BP 152/89
[2018-01-29] MEDS ORDERED: METOLAZONE 10MG TABLET PO NR (12:30)
[2018-01-29] MEDS: ENOXAPARIN 30MG/0.3ML SYR SUBCUT SCH ×2 (14:49→23:32)
[2018-01-29 15:58] LABS: CREATINE KINASE 110 IU/L (39-308); CREATINE KINASE MB FRACTION 2.2 ng/mL (0.5-3.6)
[2018-01-29 16:00] VITALS: BP 150/94
[2018-01-29] MEDS: FUROSEMIDE 40MG/4ML VIAL IVP SCH (18:21)
[2018-01-29 20:00] VITALS: BP 134/79
[2018-01-29] MEDS: LISINOPRIL 2.5MG TABLET PO SCH (20:40)
[2018-01-29] MEDS: FAMOTIDINE 20MG TABLET PO SCH (20:40)
[2018-01-29] MEDS: SPIRONOLACTONE 25MG TABLET PO SCH (20:40)
[2018-01-29 23:24] LABS: CREATINE KINASE 135 IU/L (39-308)
[2018-01-29 23:25] LABS: CREATINE KINASE MB FRACTION 2.8 ng/mL (0.5-3.6)
[2018-01-30] VITALS: BP 143/69
[2018-01-30 04:00] VITALS: BP 142/79
[2018-01-30 08:00] VITALS: BP 153/96
[2018-01-30] MEDS: FUROSEMIDE 40MG/4ML VIAL IVP SCH (08:26)
[2018-01-30] MEDS: FAMOTIDINE 20MG TABLET PO SCH (08:57)
[2018-01-30] MEDS: SPIRONOLACTONE 25MG TABLET PO SCH (08:57)
[2018-01-30] MEDS: LISINOPRIL 2.5MG TABLET PO SCH (08:58)
[2018-01-30] MEDS: ENOXAPARIN 30MG/0.3ML SYR SUBCUT SCH (08:59)
[2018-01-30] MEDS ORDERED: ASPIRIN 325MG EC TABLET PO SCH (09:00)
[2018-01-30 11:57] VITALS: BP 140/87
[2018-01-30 12:00] VITALS: BP 140/87
== END 2018-01-30 14:10 | disposition home or self-care (01) | DRG 194 ==
LOC: ER 06:57 → ENRESERV 09:51 → 5WST 09:58 → EDBEDREQ 10:03
PROVIDERS: ADMIT Internal Medicine; ATTEND Internal Medicine
DX: I11.0 Hypertensive heart disease with heart failure (principal); N17.0 Acute kidney failure with tubular necrosis; E83.51 Hypocalcemia; E44.1 Mild protein-calorie malnutrition; R17 Unspecified jaundice; I50.43 Acute on chronic combined systolic (congestive) and diastolic (congestive) heart failure; E66.9 Obesity, unspecified; J44.9 Chronic obstructive pulmonary disease, unspecified; Z91.14 Patient's other noncompliance with medication regimen; Z79.899 Other long term (current) drug therapy; Z79.82 Long term (current) use of aspirin
CPT/HCPCS: 36415; 71045; 80053; 82550; 82553; 82962; 83605; 83880; 84484; 85025; 85610; 85730; 87040; 93005; 96374; 96375; 99291; G0482; J1650; J1885; J1940; J2930; J7620

== ENCOUNTER 2018-02-19 00:49 | Inpatient (IN) | payer SELFPAY ==
[~2018-02-19] VITALS: Ht 193 cm; Wt 127.0 kg
[2018-02-19] MEDS ORDERED: ACETAMINOPHEN 325MG TABLET PO STA (01:39)
[2018-02-19] MEDS ORDERED: CEFEPIME HCL 2000MG/VIAL INJ IV ONE (01:45)
[2018-02-19] MEDS ORDERED: SODIUM CHLORIDE 0.9% 1000ML BAG (SEPSIS BOLUS) IV ONE (01:45)
[2018-02-19] MEDS ORDERED: AZITHROMYCIN 500 MG in DEXT 5% WATER 250 ML IV SCH (01:45)
[2018-02-19] MEDS ORDERED: VANCOMYCIN 1 G PREMIX 200 ML IV SCH (01:45)
[2018-02-19 02:15] LABS: HEMATOCRIT. 35.6 % (42.0-52.0); HEMOGLOBIN. 11.9 g/dL (14.0-18.0); MEAN CORPUSCULAR HEMOGLOBIN 27.7 pg (28.0-32.0); MEAN CORPUSCULAR VOLUME 82.9 fL (80.0-94.0); MEAN PLATELET VOLUME 9.5 fl (7.4-10.4); PLATELET 173 x1000/uL (130-400); RED CELL DISTRIBUTION WIDTH 16.1 % (11.6-14.6)
[2018-02-19] MEDS ORDERED: CEFEPIME 2,000 MG in DEXTROSE 5% WATER 50 ML IV SCH (02:30)
[2018-02-19 02:41] LABS: INR 1.1; PARTIAL THROMBOPLASTIN TIME 36.2 sec (23.4-31.0)
[2018-02-19 02:45] LABS: CHLORIDE 103 mEq/L (98-107)
[2018-02-19] MEDS ORDERED: FUROSEMIDE 20MG/2ML VIAL IV SCH (06:18)
[2018-02-19] MEDS ORDERED: FUROSEMIDE 20MG/2ML VIAL ONE (06:26)
[2018-02-19 06:30] LABS: CLARITY URINE CLEAR (CLEAR); COLOR URINE YELLOW (YELLOW); KETONES URINE NEGATIVE (NEGATIVE); LEUKOCYTE ESTERASE URINE NEGATIVE (NEGATIVE); NITRITE URINE NEGATIVE (NEGATIVE); OCCULT BLOOD URINE NEGATIVE (NEGATIVE); PH URINE 5.5 (4.5-8.0); PROTEIN URINE 2+ (NEGATIVE); SPECIFIC GRAVITY URINE 1.016 (1.005-1.030)
[2018-02-19 06:45] VITALS: BP 151/100
[2018-02-19 07:29] VITALS: BP 142/94
[2018-02-19 07:58] LABS: PLATELET ESTIMATE NORMAL
[2018-02-19] MEDS ORDERED: IPRATROPIUM/ALBUTEROL 0.5-3(2.5)MG/3ML NEB HHN PRN (08:15)
[2018-02-19 08:30] VITALS: BP 142/94
[2018-02-19] MEDS: CEFTRIAXONE 1 G PREMIX 50 ML IV SCH (10:14)
[2018-02-19] MEDS: ERYTHROMYCIN 250MG TABLET PO SCH (10:22)
[2018-02-19 12:46] VITALS: BP 129/89
[2018-02-19] MEDS: ACETAMINOPHEN 325MG TABLET PO PRN (12:54)
[2018-02-19] MEDS: FUROSEMIDE 40MG/4ML VIAL IVP SCH (12:55)
[2018-02-19 16:36] VITALS: BP 128/78
[2018-02-19 20:00] VITALS: BP 149/96
[2018-02-19] MEDS ORDERED: ONDANSETRON HCL 4MG/2ML VIAL IV PRN (22:15)
[2018-02-19] MEDS ORDERED: ONDANSETRON 4MG ODT PO PRN (22:30)
[2018-02-19] MEDS: HYDROCODONE/ACETAMINOPHEN 5/325MG TABLET PO PRN (22:33)
[2018-02-20] VITALS: BP 144/86
[2018-02-20] MEDS: ACETAMINOPHEN 325MG TABLET PO PRN (01:31)
[2018-02-20 04:00] VITALS: BP 115/84
[2018-02-20 07:58] VITALS: BP 133/88
[2018-02-20] MEDS: ERYTHROMYCIN 250MG TABLET PO SCH (08:25)
[2018-02-20] MEDS: FUROSEMIDE 40MG/4ML VIAL IVP SCH (08:25)
[2018-02-20] MEDS: CEFTRIAXONE 1 G PREMIX 50 ML IV SCH (08:25)
[2018-02-20] MEDS: HYDROCODONE/ACETAMINOPHEN 5/325MG TABLET PO PRN (08:25)
[2018-02-20 08:27] LABS: BASOPHILS % 0.3 % (0.0-2.0); EOSINOPHILS % 0.1 % (0.0-5.0); HEMATOCRIT. 38.8 % (42.0-52.0); HEMOGLOBIN. 12.4 g/dL (14.0-18.0); LYMPHOCYTES % 12.2 % (20.0-50.0); MEAN CORPUSCULAR HEMOGLOBIN 27.3 pg (28.0-32.0); MEAN CORPUSCULAR VOLUME 85.3 fL (80.0-94.0); MEAN PLATELET VOLUME 9.9 fl (7.4-10.4); MONOCYTES % 10.6 % (2.0-8.0); NEUTROPHILS % 76.8 % (40.0-76.0); PLATELET 158 x1000/uL (130-400); RED BLOOD CELL COUNT 4.54 mill/uL (4.7-6.1); RED CELL DISTRIBUTION WIDTH 16.5 % (11.6-14.6)
[2018-02-20 12:00] VITALS: BP 126/97
[2018-02-20 13:54] VITALS: BP 126/97
[2018-02-20 16:00] VITALS: BP 137/76
== END 2018-02-20 18:35 | disposition home or self-care (01) | DRG 720 ==
LOC: EDBEDREQSVC 02:50 → EDBEDREQ 02:50 → ENRESERV 04:24 → ER 07:38 → 8WST 07:58
PROVIDERS: ADMIT Internal Medicine; ATTEND Internal Medicine
DX: A41.9 Sepsis, unspecified organism (principal); J18.9 Pneumonia, unspecified organism; I50.9 Heart failure, unspecified; D64.9 Anemia, unspecified; J45.909 Unspecified asthma, uncomplicated; F17.210 Nicotine dependence, cigarettes, uncomplicated; N18.9 Chronic kidney disease, unspecified; Z79.82 Long term (current) use of aspirin; Z79.899 Other long term (current) drug therapy
CPT/HCPCS: 36415; 71045; 80048; 80053; 81003; 83605; 85025; 85610; 85730; 87040; 87086; 93005; 93970; 96365; 96366; 96368; 99291; J0456; J0692; J0696; J1940; J3370; J7030; J7050; J7060; J7620; Q0162; A4315

== ENCOUNTER 2018-02-24 02:12 | Emergency (ER) | payer SELFPAY ==
[~2018-02-24] VITALS: Ht 193 cm; Wt 125.0 kg
[2018-02-24] MEDS ORDERED: CEFTRIAXONE SODIUM 500 MG/VIAL IM ONE (06:45)
[2018-02-24 07:12] VITALS: BP 138/77
== END 2018-02-24 07:15 | disposition home or self-care (01) ==
LOC: ER 02:12
DX: L03.115 Cellulitis of right lower limb (principal); I11.9 Hypertensive heart disease without heart failure; L97.819 Non-pressure chronic ulcer of other part of right lower leg with unspecified severity; Z87.891 Personal history of nicotine dependence
CPT/HCPCS: 93971; 96372; 99284; J0696; Z7610

== ENCOUNTER 2018-05-20 08:44 | Inpatient (IN) | payer SELFPAY ==
[~2018-05-20] VITALS: Ht 193 cm; Wt 108.9 kg
[~2018-05-20 08:44] MED LIST changes: +COR25 PO; -DILT240C91 PO; -FURO-151 PO; +FURO10VI3 PO; +LISI10TA5 PO; +NICO-786 TD; -POTA20TA82 PO; +SPIR25TA PO
[2018-05-20] MEDS ORDERED: VALACYCLOVIR HCL 500MG TABLET PO STA (09:25)
[2018-05-20] MEDS ORDERED: KETOROLAC 30MG/ML VIAL IV ONE (09:30)
[2018-05-20 10:14] LABS: HEMATOCRIT. 44.1 % (42.0-52.0); HEMOGLOBIN. 14.8 g/dL (14.0-18.0); MEAN CORPUSCULAR HEMOGLOBIN 27.8 pg (28.0-32.0); MEAN CORPUSCULAR VOLUME 82.8 fL (80.0-94.0); MEAN PLATELET VOLUME 9.1 fl (7.4-10.4); PLATELET 205 x1000/uL (130-400); RED BLOOD CELL COUNT 5.33 mill/uL (4.7-6.1); RED CELL DISTRIBUTION WIDTH 21.3 % (11.6-14.6)
[2018-05-20 10:16] LABS: CHLORIDE 103 mEq/L (98-107)
[2018-05-20 11:00] LABS: PLATELET ESTIMATE NORMAL
[2018-05-20] MEDS ORDERED: ASPIRIN 325MG EC TABLET PO ONE (11:15)
[2018-05-20] MEDS ORDERED: HYDRALAZINE 20MG/ML VIAL IV ONE (11:15)
[2018-05-20] MEDS ORDERED: IPRATROPIUM/ALBUTEROL 0.5-3(2.5)MG/3ML NEB HHN PRN (13:30)
[2018-05-20] MEDS ORDERED: CLONIDINE 0.1MG TABLET PO PRN (13:30)
[2018-05-20] MEDS ORDERED: LISINOPRIL 10MG TABLET PO NR (14:45)
[2018-05-20] MEDS ORDERED: INFLUENZA VIRUS VACCINE(AFLURIA) 0.5ML SYR IM ONE (18:00)
[2018-05-20 18:16] VITALS: BP 147/90
[2018-05-20] MEDS: OMEPRAZOLE 20MG CAPSULE EXTENDED RELEASE PO SCH (18:28)
[2018-05-20] MEDS: ACETAMINOPHEN 325MG TABLET PO PRN (18:28)
[2018-05-20] MEDS ORDERED: GABAPENTIN 100MG CAPSULE PO SCH (18:30)
[2018-05-20 20:00] VITALS: BP 147/95
[2018-05-20] MEDS: LISINOPRIL 10MG TABLET PO SCH (21:01)
[2018-05-20] MEDS: ENOXAPARIN 30MG/0.3ML SYR SUBCUT SCH (21:02)
[2018-05-20] MEDS: CARVEDILOL 12.5MG TABLET PO SCH (21:02)
[2018-05-20] MEDS: GABAPENTIN 100MG CAPSULE PO PRN (21:02)
[2018-05-20] MEDS: ACYCLOVIR 400 MG TABLET PO SCH (21:03)
[2018-05-20 23:26] LABS: *AMPHETAMINES SCREEN URINE PRESUMTIVE POSITIVE (NEGATIVE); *BARBITURATES SCREEN URINE NEGATIVE (NEGATIVE); *BENZODIAZEPINES SCREEN URINE NEGATIVE (NEGATIVE); *COCAINE SCREEN URINE PRESUMTIVE POSITIVE (NEGATIVE); CANNABINOID URINE SCREEN NEGATIVE (NEGATIVE); METHADONE URINE SCREEN NEGATIVE (NEGATIVE); OPIATES URINE SCREEN NEGATIVE (NEGATIVE); PHENCYCLIDINE URINE SCREEN NEGATIVE (NEGATIVE)
[2018-05-21] VITALS: BP 100/64
[2018-05-21 04:00] VITALS: BP 114/62
[2018-05-21] MEDS: ACETAMINOPHEN 325MG TABLET PO PRN (04:09)
[2018-05-21] MEDS: ACYCLOVIR 400 MG TABLET PO SCH ×5 (06:02→21:19)
[2018-05-21] MEDS: OMEPRAZOLE 20MG CAPSULE EXTENDED RELEASE PO SCH (06:02)
[2018-05-21] MEDS ORDERED: POTASSIUM CHLORIDE 20MEQ TABLET SR PO PRN (08:00)
[2018-05-21 08:17] LABS: CHLORIDE 103 mEq/L (98-107)
[2018-05-21 08:21] LABS: BASOPHILS % 0.6 % (0.0-2.0); EOSINOPHILS % 5.2 % (0.0-5.0); HEMATOCRIT. 46.2 % (42.0-52.0); HEMOGLOBIN. 15.5 g/dL (14.0-18.0); LYMPHOCYTES % 22.4 % (20.0-50.0); MEAN CORPUSCULAR HEMOGLOBIN 28.5 pg (28.0-32.0); MEAN CORPUSCULAR VOLUME 85.1 fL (80.0-94.0); MONOCYTES % 14.8 % (2.0-8.0); RED BLOOD CELL COUNT 5.43 mill/uL (4.7-6.1); RED CELL DISTRIBUTION WIDTH 21.6 % (11.6-14.6)
[2018-05-21] MEDS ORDERED: BUDESONIDE 0.25MG/2ML NEB HHN SCH (09:00)
[2018-05-21] MEDS: LISINOPRIL 10MG TABLET PO SCH ×2 (09:03→21:19)
[2018-05-21] MEDS: SPIRONOLACTONE 25MG TABLET PO SCH (09:04)
[2018-05-21] MEDS: ASPIRIN 81MG EC TABLET PO SCH (09:04)
[2018-05-21] MEDS: CARVEDILOL 12.5MG TABLET PO SCH ×2 (09:04→21:19)
[2018-05-21] MEDS: ENOXAPARIN 30MG/0.3ML SYR SUBCUT SCH (09:07)
[2018-05-21 10:02] LABS: MEAN PLATELET VOLUME 9.2 fl (7.4-10.4)
[2018-05-21 10:03] LABS: PLATELET 164 x1000/uL (130-400)
[2018-05-21 16:00] VITALS: BP 125/76
[2018-05-21 20:00] VITALS: BP 117/54
[2018-05-22] VITALS: BP 143/62
[2018-05-22 04:00] VITALS: BP 136/52
[2018-05-22] MEDS ORDERED: VALACYCLOVIR HCL 500MG TABLET PO SCH (06:00)
[2018-05-22 08:00] VITALS: BP 135/76
[2018-05-22 08:30] LABS: BASOPHILS % 0.8 % (0.0-2.0); EOSINOPHILS % 5.3 % (0.0-5.0); HEMATOCRIT. 43.5 % (42.0-52.0); HEMOGLOBIN. 14.6 g/dL (14.0-18.0); LYMPHOCYTES % 35.3 % (20.0-50.0); MEAN CORPUSCULAR HEMOGLOBIN 27.8 pg (28.0-32.0); MEAN CORPUSCULAR VOLUME 82.7 fL (80.0-94.0); MEAN PLATELET VOLUME 9.1 fl (7.4-10.4); MONOCYTES % 14.1 % (2.0-8.0); NEUTROPHILS % 44.5 % (40.0-76.0); PLATELET 217 x1000/uL (130-400); RED BLOOD CELL COUNT 5.26 mill/uL (4.7-6.1); RED CELL DISTRIBUTION WIDTH 21.3 % (11.6-14.6)
[2018-05-22 08:56] LABS: CHLORIDE 103 mEq/L (98-107)
[2018-05-22] MEDS ORDERED: ENOXAPARIN 40MG/0.4ML SYR SUBCUT SCH (09:00)
[2018-05-22] MEDS ORDERED: FUROSEMIDE 40MG/4ML VIAL IV SCH (09:00)
[2018-05-22] MEDS ORDERED: FAMOTIDINE 20MG TABLET PO SCH (09:00)
[2018-05-22] MEDS: GABAPENTIN 100MG CAPSULE PO PRN (09:13)
[2018-05-22] MEDS: SPIRONOLACTONE 25MG TABLET PO SCH (09:14)
[2018-05-22] MEDS: ASPIRIN 81MG EC TABLET PO SCH (09:14)
[2018-05-22] MEDS: LISINOPRIL 10MG TABLET PO SCH (09:14)
[2018-05-22] MEDS: CARVEDILOL 12.5MG TABLET PO SCH (09:15)
[2018-05-22 12:00] VITALS: BP 152/52
[2018-05-22 13:02] VITALS: BP 152/53
[2018-05-23] MEDS ORDERED: ENOXAPARIN 30MG/0.3ML SYR SUBCUT SCH (09:00)
== END 2018-05-22 16:15 | disposition home or self-care (01) | DRG 194 ==
LOC: ER 09:10 → 5WST 11:24 → ENRESERV 16:49
PROVIDERS: ADMIT Emergency Medicine; ATTEND Emergency Medicine
DX: I11.0 Hypertensive heart disease with heart failure (principal); E46 Unspecified protein-calorie malnutrition; I42.9 Cardiomyopathy, unspecified; I50.43 Acute on chronic combined systolic (congestive) and diastolic (congestive) heart failure; J44.9 Chronic obstructive pulmonary disease, unspecified; K21.9 Gastro-esophageal reflux disease without esophagitis; B02.9 Zoster without complications; F14.10 Cocaine abuse, uncomplicated; F17.210 Nicotine dependence, cigarettes, uncomplicated; F19.10 Other psychoactive substance abuse, uncomplicated; Z91.14 Patient's other noncompliance with medication regimen; Z79.899 Other long term (current) drug therapy; Z79.82 Long term (current) use of aspirin; Z68.29 Body mass index [BMI] 29.0-29.9, adult
CPT/HCPCS: 36415; 71045; 80048; 80305; 83880; 84484; 90686; 93005; 96374; 96375; 99291; J0360; J1650; J1885; J1940

== ENCOUNTER 2018-10-28 01:59 | Inpatient (IN) | payer SELFPAY ==
[~2018-10-28] VITALS: Ht 193 cm; Wt 107.5 kg
[2018-10-28] MEDS ORDERED: FUROSEMIDE 40MG/4ML VIAL IV ONE (03:00)
[2018-10-28 03:09] LABS: BASOPHILS % 0.4 % (0.0-2.0); EOSINOPHILS % 3.3 % (0.0-5.0); HEMATOCRIT. 38.3 % (42.0-52.0); HEMOGLOBIN. 12.6 g/dL (14.0-18.0); LYMPHOCYTES % 25.5 % (20.0-50.0); MEAN CORPUSCULAR HEMOGLOBIN 29.5 pg (28.0-32.0); MEAN CORPUSCULAR VOLUME 89.8 fL (80.0-94.0); MEAN PLATELET VOLUME 10.1 fl (7.4-10.4); MONOCYTES % 10.5 % (2.0-8.0); NEUTROPHILS % 60.3 % (40.0-76.0); PLATELET 178 x1000/uL (130-400); RED BLOOD CELL COUNT 4.26 mill/uL (4.7-6.1); RED CELL DISTRIBUTION WIDTH 15.4 % (11.6-14.6)
[2018-10-28 03:14] LABS: CHLORIDE 105 mEq/L (98-107)
[2018-10-28 03:16] LABS: INR 1.1; PARTIAL THROMBOPLASTIN TIME 33.4 sec (23.4-31.0); PROTHROMBIN TIME 10.9 sec (9.6-11.0)
[2018-10-28] MEDS ORDERED: MORPHINE SULFATE 4 MG/ML CPJ (NOT FOR IM USE) IV ONE (06:30)
[2018-10-28] MEDS ORDERED: MORPHINE SULFATE 4 MG/ML CPJ (NOT FOR IM USE) IV PRN (07:15)
[2018-10-28] MEDS ORDERED: DOCUSATE SODIUM 100MG CAPSULE PO PRN (07:15)
[2018-10-28] MEDS ORDERED: CLONIDINE 0.1MG TABLET PO PRN (07:15)
[2018-10-28] MEDS ORDERED: HYDROCODONE/ACETAMINOPHEN 5/325MG TABLET PO PRN (07:15)
[2018-10-28] MEDS ORDERED: ACETAMINOPHEN 325MG TABLET PO PRN (07:15)
[2018-10-28] MEDS ORDERED: MAGNESIUM/ALUMINUM HYDROXIDE/SIMETHICONE 30ML UDC PO PRN (07:15)
[2018-10-28] MEDS: CARVEDILOL 25MG TABLET PO SCH ×2 (10:38→21:10)
[2018-10-28] MEDS: SPIRONOLACTONE 25MG TABLET PO SCH (10:38)
[2018-10-28] MEDS: FUROSEMIDE 40MG/4ML VIAL IV SCH ×2 (10:38→17:03)
[2018-10-28] MEDS: ENOXAPARIN 30MG/0.3ML SYR SUBCUT SCH ×2 (10:39→21:10)
[2018-10-28 10:59] VITALS: BP 169/106
[2018-10-28 12:00] VITALS: BP_SYST 134; BP_SYST 169; BP_DIAS 106; BP_DIAS 75
[2018-10-28 16:00] VITALS: BP 110/76
[2018-10-28 20:00] VITALS: BP 135/89
[2018-10-28] MEDS: IPRATROPIUM/ALBUTEROL 0.5-3(2.5)MG/3ML NEB HHN PRN (20:10)
[2018-10-28] MEDS: BUDESONIDE 0.5MG/2ML NEB HHN SCH (20:10)
[2018-10-28] MEDS: LISINOPRIL 10MG TABLET PO SCH (21:11)
[2018-10-29] VITALS: BP 116/76
[2018-10-29 04:00] VITALS: BP 137/82
[2018-10-29 07:24] LABS: BASOPHILS % 0.8 % (0.0-2.0); EOSINOPHILS % 7.1 % (0.0-5.0); HEMATOCRIT. 37.9 % (42.0-52.0); HEMOGLOBIN. 12.3 g/dL (14.0-18.0); LYMPHOCYTES % 29.9 % (20.0-50.0); MEAN CORPUSCULAR HEMOGLOBIN 29.1 pg (28.0-32.0); MEAN CORPUSCULAR VOLUME 89.4 fL (80.0-94.0); MEAN PLATELET VOLUME 10.4 fl (7.4-10.4); MONOCYTES % 10.7 % (2.0-8.0); NEUTROPHILS % 51.5 % (40.0-76.0); PLATELET 143 x1000/uL (130-400); RED BLOOD CELL COUNT 4.24 mill/uL (4.7-6.1); RED CELL DISTRIBUTION WIDTH 15.4 % (11.6-14.6)
[2018-10-29 07:43] LABS: CHLORIDE 103 mEq/L (98-107)
[2018-10-29] MEDS: LISINOPRIL 10MG TABLET PO SCH (07:43)
[2018-10-29] MEDS: CARVEDILOL 25MG TABLET PO SCH (07:44)
[2018-10-29] MEDS: FUROSEMIDE 40MG/4ML VIAL IV SCH (07:44)
[2018-10-29] MEDS: SPIRONOLACTONE 25MG TABLET PO SCH (07:44)
[2018-10-29] MEDS: ENOXAPARIN 30MG/0.3ML SYR SUBCUT SCH (07:45)
[2018-10-29] MEDS: IPRATROPIUM/ALBUTEROL 0.5-3(2.5)MG/3ML NEB HHN PRN (09:02)
[2018-10-29] MEDS: BUDESONIDE 0.5MG/2ML NEB HHN SCH (09:02)
[2018-10-29 11:23] VITALS: BP 119/74
== END 2018-10-29 12:38 | disposition home or self-care (01) | DRG 194 ==
LOC: ER 01:59 → 7WST 05:29 → SUPCPDRO 07:08 → ENRESERV 07:32
PROVIDERS: ADMIT Hospitalist; ATTEND Hospitalist
DX: I11.0 Hypertensive heart disease with heart failure (principal); J44.1 Chronic obstructive pulmonary disease with (acute) exacerbation; I42.9 Cardiomyopathy, unspecified; I50.23 Acute on chronic systolic (congestive) heart failure; F17.210 Nicotine dependence, cigarettes, uncomplicated; E78.5 Hyperlipidemia, unspecified; Z79.899 Other long term (current) drug therapy
CPT/HCPCS: 36415; 71045; 83880; 84484; 93005; 93306; 93970; 96374; 96375; 99285; J1650; J1940; J2270; J7620; J7626

== ENCOUNTER 2018-11-29 02:04 | Inpatient (IN) | payer SELFPAY ==
[~2018-11-29] VITALS: Ht 182.9 cm; Wt 103.4 kg
[2018-11-29] MEDS ORDERED: IPRATROPIUM BROMIDE (0.02%) 0.5MG/2.5ML NEB HHN STA (02:54)
[2018-11-29] MEDS ORDERED: PREDNISONE 20MG TABLET PO STA (02:54)
[2018-11-29] MEDS ORDERED: ALBUTEROL (0.083%) 2.5MG/3ML NEB HHN STA (02:54)
[2018-11-29] MEDS ORDERED: MAGNESIUM 2 G PREMIX 50 ML IV ONE (03:00)
[2018-11-29 03:17] LABS: BASOPHILS % 0.6 % (0.0-2.0); CHLORIDE 103 mEq/L (98-107); EOSINOPHILS % 1.8 % (0.0-5.0); HEMATOCRIT. 34.7 % (42.0-52.0); HEMOGLOBIN. 11.6 g/dL (14.0-18.0); LYMPHOCYTES % 17.3 % (20.0-50.0); MEAN CORPUSCULAR HEMOGLOBIN 29.5 pg (28.0-32.0); MEAN CORPUSCULAR VOLUME 88.4 fL (80.0-94.0); MEAN PLATELET VOLUME 9.1 fl (7.4-10.4); MONOCYTES % 13.9 % (2.0-8.0); NEUTROPHILS % 66.4 % (40.0-76.0); PLATELET 189 x1000/uL (130-400); RED BLOOD CELL COUNT 3.92 mill/uL (4.7-6.1); RED CELL DISTRIBUTION WIDTH 16.3 % (11.6-14.6)
[2018-11-29] MEDS: FUROSEMIDE 100MG/10ML VIAL IVP NR ×2 (05:05→06:26)
[2018-11-29] MEDS ORDERED: HYDRALAZINE 20MG/ML VIAL IV PRN ×2 (07:30→11:00)
[2018-11-29 08:00] VITALS: BP 143/66
[2018-11-29 10:35] VITALS: BP 143/66
[2018-11-29] MEDS ORDERED: CLONIDINE 0.1MG TABLET PO PRN (11:00)
[2018-11-29] MEDS ORDERED: MAGNESIUM/ALUMINUM HYDROXIDE/SIMETHICONE 30ML UDC PO PRN (11:00)
[2018-11-29] MEDS ORDERED: TEMAZEPAM 15MG CAPSULE PO PRN (11:00)
[2018-11-29] MEDS ORDERED: MAGNESIUM HYDROXIDE 400MG/5ML 30ML UDC PO PRN (11:00)
[2018-11-29] MEDS ORDERED: IPRATROPIUM/ALBUTEROL 0.5-3(2.5)MG/3ML NEB INH PRN (11:00)
[2018-11-29] MEDS ORDERED: DIPHENHYDRAMINE 50MG/ML VIAL IV PRN (11:00)
[2018-11-29] MEDS ORDERED: ACETAMINOPHEN 325MG TABLET PO PRN (11:00)
[2018-11-29] MEDS ORDERED: ONDANSETRON HCL 4MG/2ML INJ IV PRN (11:00)
[2018-11-29 12:00] VITALS: BP 151/79
[2018-11-29] MEDS: LISINOPRIL 10MG TABLET PO SCH ×2 (12:11→20:20)
[2018-11-29] MEDS: CARVEDILOL 25MG TABLET PO SCH ×2 (12:11→20:20)
[2018-11-29] MEDS: POTASSIUM CHLORIDE 20MEQ TABLET SR PO SCH (12:11)
[2018-11-29] MEDS: ENOXAPARIN 30MG/0.3ML SYR SUBCUT SCH ×2 (12:12→20:32)
[2018-11-29] MEDS: FUROSEMIDE 40MG/4ML VIAL IVP SCH ×2 (12:12→17:49)
[2018-11-29] MEDS: SPIRONOLACTONE 25MG TABLET PO SCH (12:12)
[2018-11-29] MEDS: IPRATROPIUM/ALBUTEROL 0.5-3(2.5)MG/3ML NEB HHN SCH (14:10)
[2018-11-29] MEDS: SODIUM CHLORIDE 0.9% INJ 3ML FLUSH IVF SCH ×2 (15:58→21:07)
[2018-11-29 16:00] VITALS: BP 124/73
[2018-11-29 20:00] VITALS: BP 134/78
[2018-11-29] MEDS ORDERED: HYDROCODONE/ACETAMINOPHEN 10/325MG TABLET PO PRN (21:00)
[2018-11-29] MEDS ORDERED: FAMOTIDINE 20MG TABLET PO SCH (21:00)
[2018-11-30] VITALS: BP 90/60
[2018-11-30] MEDS: IPRATROPIUM/ALBUTEROL 0.5-3(2.5)MG/3ML NEB HHN SCH ×2 (00:45→08:50)
[2018-11-30 04:00] VITALS: BP 115/69
[2018-11-30] MEDS: FUROSEMIDE 40MG/4ML VIAL IVP SCH (05:16)
[2018-11-30] MEDS: SODIUM CHLORIDE 0.9% INJ 3ML FLUSH IVF SCH ×2 (05:16→14:00)
[2018-11-30 07:04] LABS: CHLORIDE 104 mEq/L (98-107)
[2018-11-30 08:00] VITALS: BP 101/58
[2018-11-30] MEDS: CARVEDILOL 25MG TABLET PO SCH (08:46)
[2018-11-30] MEDS: POTASSIUM CHLORIDE 20MEQ TABLET SR PO SCH (08:47)
[2018-11-30] MEDS: SPIRONOLACTONE 25MG TABLET PO SCH (08:47)
[2018-11-30] MEDS: ENOXAPARIN 30MG/0.3ML SYR SUBCUT SCH (08:49)
[2018-11-30] MEDS: LISINOPRIL 10MG TABLET PO SCH (08:49)
[2018-11-30 12:00] VITALS: BP 101/49
[2018-11-30 14:02] VITALS: BP 101/44
== END 2018-11-30 15:15 | disposition home or self-care (01) | DRG 194 ==
LOC: ER 02:04 → 5WST 05:54 → EDBEDREQSVC 06:00 → ENRESERV 07:12
PROVIDERS: ADMIT Internal Medicine; ATTEND Internal Medicine
DX: I11.0 Hypertensive heart disease with heart failure (principal); J84.9 Interstitial pulmonary disease, unspecified; I50.23 Acute on chronic systolic (congestive) heart failure; J44.9 Chronic obstructive pulmonary disease, unspecified; F17.200 Nicotine dependence, unspecified, uncomplicated; B19.20 Unspecified viral hepatitis C without hepatic coma; F14.90 Cocaine use, unspecified, uncomplicated; Z79.51 Long term (current) use of inhaled steroids; Z79.899 Other long term (current) drug therapy; Z79.82 Long term (current) use of aspirin
CPT/HCPCS: 36415; 71045; 80048; 83735; 83880; 84484; 93005; 94640; 96374; 99285; J0360; J1650; J1940; J2405; J3475; J7512; J7611; J7620

== ENCOUNTER 2018-12-08 00:37 | Emergency (ER) | payer MEDICAID ==
[~2018-12-08] VITALS: Ht 188 cm; Wt 100.0 kg
[2018-12-08] MEDS ORDERED: NITROGLYCERIN 0.4MG TABLET SL SL PRN (02:45)
[2018-12-08 03:02] LABS: CHLORIDE 108 mEq/L (98-107)
[2018-12-08 03:03] LABS: HEMATOCRIT. 35.5 % (42.0-52.0); HEMOGLOBIN. 11.7 g/dL (14.0-18.0); MEAN CORPUSCULAR HEMOGLOBIN 28.8 pg (28.0-32.0); MEAN CORPUSCULAR VOLUME 87.2 fL (80.0-94.0); MEAN PLATELET VOLUME 9.3 fl (7.4-10.4); PLATELET 197 x1000/uL (130-400); RED BLOOD CELL COUNT 4.08 mill/uL (4.7-6.1); RED CELL DISTRIBUTION WIDTH 16.3 % (11.6-14.6)
[2018-12-08 04:45] LABS: PLATELET ESTIMATE NORMAL
[2018-12-08 07:40] VITALS: BP 163/121
[2018-12-08] MEDS ORDERED: FUROSEMIDE 40MG TABLET PO ONE (07:45)
== END 2018-12-08 08:10 | disposition home or self-care (01) ==
LOC: ER 00:37
DX: R07.89 Other chest pain (principal); I11.0 Hypertensive heart disease with heart failure; I50.9 Heart failure, unspecified; F17.200 Nicotine dependence, unspecified, uncomplicated; Z79.82 Long term (current) use of aspirin; Z79.899 Other long term (current) drug therapy
CPT/HCPCS: 36415; 71045; 80053; 83880; 84484; 85025; 93005; 99284; Z7610

== ENCOUNTER 2018-12-19 04:45 | Emergency (ER) | payer SELFPAY ==
[~2018-12-19] VITALS: Ht 193 cm; Wt 122.0 kg
[2018-12-19] MEDS ORDERED: NITROGLYCERIN OINT 1GM/INCH UDPKT TD ONE (05:15)
[2018-12-19] MEDS ORDERED: FUROSEMIDE 40MG/4ML VIAL IV ONE (05:15)
[2018-12-19 05:19] LABS: HEMATOCRIT. 35.4 % (42.0-52.0); HEMOGLOBIN. 11.7 g/dL (14.0-18.0); MEAN CORPUSCULAR HEMOGLOBIN 28.4 pg (28.0-32.0); MEAN CORPUSCULAR VOLUME 85.9 fL (80.0-94.0); MEAN PLATELET VOLUME 9.7 fl (7.4-10.4); PLATELET 172 x1000/uL (130-400); RED BLOOD CELL COUNT 4.12 mill/uL (4.7-6.1); RED CELL DISTRIBUTION WIDTH 16.9 % (11.6-14.6)
[2018-12-19 05:23] LABS: CHLORIDE 108 mEq/L (98-107)
[2018-12-19 07:07] LABS: PLATELET ESTIMATE NORMAL
[2018-12-19] MEDS ORDERED: NITROGLYCERIN 0.4MG TABLET SL SL PRN (08:45)
[2018-12-19] MEDS ORDERED: LORAZEPAM 0.5MG TABLET PO PRN (08:45)
[2018-12-19] MEDS ORDERED: ZOLPIDEM TARTRATE 5MG TABLET PO PRN (08:45)
[2018-12-19] MEDS ORDERED: ENOXAPARIN 40MG/0.4ML SYR SUBCUT SCH (08:45)
[2018-12-19] MEDS ORDERED: GUAIFENESIN 200MG/10ML SUGAR FREE UDC PO PRN (08:45)
[2018-12-19] MEDS ORDERED: DOCUSATE SODIUM 100MG CAPSULE PO PRN (08:45)
[2018-12-19] MEDS ORDERED: ACETAMINOPHEN 325MG TABLET PO PRN (08:45)
[2018-12-19] MEDS ORDERED: MAGNESIUM/ALUMINUM HYDROXIDE/SIMETHICONE 30ML UDC PO PRN (08:45)
[2018-12-19] MEDS ORDERED: ONDANSETRON HCL 4MG/2ML INJ IV PRN (08:45)
[2018-12-19] MEDS ORDERED: CLONIDINE 0.1MG TABLET PO PRN (08:45)
[2018-12-19] MEDS ORDERED: KETOROLAC 15MG/ML VIAL IV PRN (08:45)
[2018-12-19] MEDS ORDERED: SPIRONOLACTONE 25MG TABLET PO SCH (09:00)
[2018-12-19] MEDS ORDERED: FAMOTIDINE 20MG TABLET PO SCH ×2 (09:00→21:00)
[2018-12-19] MEDS ORDERED: FUROSEMIDE 40MG/4ML VIAL IVP SCH (09:00)
[2018-12-19 09:26] VITALS: BP 142/80
[2018-12-19] MEDS ORDERED: CARVEDILOL 3.125 MG TABLET PO SCH (18:00)
== END 2018-12-19 09:36 | disposition left against medical advice (07) ==
LOC: ER 04:45 → EDBEDREQ 05:29 → EDBEDREQTM 05:29 → EDRESERV 09:04 → CANRESERV 09:04 → ENRESERV 09:04 → ER 09:36 → CMPBEDREQ 10:05
DX: J96.01 Acute respiratory failure with hypoxia (principal); I11.0 Hypertensive heart disease with heart failure; I50.9 Heart failure, unspecified; J44.9 Chronic obstructive pulmonary disease, unspecified; Z79.82 Long term (current) use of aspirin
CPT/HCPCS: 36415; 71045; 80053; 80061; 83036; 83880; 84484; 85025; 93005; 96374; 96375; 99284; J1940; Z7610

== ENCOUNTER 2018-12-26 08:35 | Inpatient (IN) | payer SELFPAY ==
[~2018-12-26] VITALS: Ht 193 cm; Wt 119.8 kg
[2018-12-26 09:25] LABS: HEMOGLOBIN. 12.2 g/dL (14.0-18.0); MEAN PLATELET VOLUME 9.4 fl (7.4-10.4); PLATELET 187 x1000/uL (130-400); RED BLOOD CELL COUNT 4.35 mill/uL (4.7-6.1); RED CELL DISTRIBUTION WIDTH 16.8 % (11.6-14.6)
[2018-12-26] MEDS ORDERED: MORPHINE SULFATE 4 MG/ML CPJ (NOT FOR IM USE) IV STA (09:37)
[2018-12-26] MEDS ORDERED: ONDANSETRON HCL 4MG/2ML INJ IV STA (09:37)
[2018-12-26] MEDS ORDERED: ALBUTEROL (0.083%) 2.5MG/3ML NEB HHN STA (09:37)
[2018-12-26] MEDS ORDERED: IPRATROPIUM BROMIDE (0.02%) 0.5MG/2.5ML NEB HHN STA (09:37)
[2018-12-26] MEDS ORDERED: NITROGLYCERIN OINT 1GM/INCH UDPKT TD ONE (09:45)
[2018-12-26 09:53] LABS: PLATELET ESTIMATE NORMAL
[2018-12-26] MEDS ORDERED: CLONIDINE 0.1MG TABLET PO PRN (10:45)
[2018-12-26] MEDS ORDERED: IPRATROPIUM/ALBUTEROL 0.5-3(2.5)MG/3ML NEB HHN PRN (10:45)
[2018-12-26 13:10] VITALS: BP 131/97
[2018-12-26 13:30] VITALS: BP 131/97
[2018-12-26] MEDS: METHYLPREDNISOLONE SOD SUCC 40 MG/ML VIAL IV SCH ×2 (14:50→21:55)
[2018-12-26] MEDS: ENOXAPARIN 30MG/0.3ML SYR SUBCUT SCH ×2 (14:51→21:54)
[2018-12-26] MEDS: CARVEDILOL 25MG TABLET PO SCH (14:51)
[2018-12-26 16:00] VITALS: BP 132/97
[2018-12-26] MEDS: NICOTINE 7MG PATCH TOP SCH (16:00)
[2018-12-26] MEDS: FUROSEMIDE 40MG/4ML VIAL IVP SCH (16:26)
[2018-12-26] MEDS: GUAIFENESIN-DM 200MG-20MG/10ML UDC PO PRN (16:26)
[2018-12-26] MEDS ORDERED: NICOTINE 7 MG TD SCH (16:30)
[2018-12-26 20:00] VITALS: BP 108/73
[2018-12-26] MEDS: HYDRALAZINE HCL 50MG TABLET PO SCH (21:00)
[2018-12-26] MEDS ORDERED: CARVEDILOL 25MG TABLET PO SCH (21:00)
[2018-12-26] MEDS ORDERED: FUROSEMIDE 20MG/2ML VIAL IVP NR (22:45)
[2018-12-27 00:22] VITALS: BP 123/83
[2018-12-27] MEDS: IPRATROPIUM BROMIDE (0.02%) 0.5MG/2.5ML NEB HHN SCH ×5 (00:32→20:33)
[2018-12-27 04:17] VITALS: BP 136/89
[2018-12-27] MEDS: FUROSEMIDE 40MG/4ML VIAL IVP SCH (06:22)
[2018-12-27] MEDS: METHYLPREDNISOLONE SOD SUCC 40 MG/ML VIAL IV SCH ×2 (06:22→17:02)
[2018-12-27 07:09] LABS: HEMATOCRIT. 38.5 % (42.0-52.0); HEMOGLOBIN. 12.4 g/dL (14.0-18.0); MEAN CORPUSCULAR HEMOGLOBIN 27.8 pg (28.0-32.0); MEAN CORPUSCULAR VOLUME 86.1 fL (80.0-94.0); MEAN PLATELET VOLUME 9.7 fl (7.4-10.4); PLATELET 171 x1000/uL (130-400); RED BLOOD CELL COUNT 4.47 mill/uL (4.7-6.1); RED CELL DISTRIBUTION WIDTH 16.6 % (11.6-14.6)
[2018-12-27 08:00] VITALS: BP 124/81
[2018-12-27] MEDS: HYDRALAZINE HCL 50MG TABLET PO SCH ×2 (08:27→20:40)
[2018-12-27] MEDS: LOSARTAN POTASSIUM 50 MG TABLET PO SCH (08:27)
[2018-12-27] MEDS: ENOXAPARIN 30MG/0.3ML SYR SUBCUT SCH ×2 (08:28→21:24)
[2018-12-27] MEDS: CARVEDILOL 25MG TABLET PO SCH ×2 (08:28→17:01)
[2018-12-27] MEDS: NICOTINE 7MG PATCH TOP SCH (08:32)
[2018-12-27] MEDS ORDERED: LOSARTAN POTASSIUM 25 MG TABLET PO SCH (09:00)
[2018-12-27] MEDS ORDERED: SODIUM POLYSTYRENE SULFONATE 15 G/60 ML BOT PO NR (09:15)
[2018-12-27 10:06] LABS: PLATELET ESTIMATE NORMAL
[2018-12-27 12:00] VITALS: BP 101/67
[2018-12-27 16:00] VITALS: BP 120/70
[2018-12-27] MEDS: FUROSEMIDE 100MG/10ML VIAL IVP SCH (17:02)
[2018-12-27 20:00] VITALS: BP 105/76
[2018-12-28] VITALS (7 sets, daily range): BP systolic 96–132; BP diastolic 56–82
[2018-12-28] MEDS: IPRATROPIUM BROMIDE (0.02%) 0.5MG/2.5ML NEB HHN SCH ×6 (01:11→20:42)
[2018-12-28] MEDS: METHYLPREDNISOLONE SOD SUCC 40 MG/ML VIAL IV SCH ×2 (06:22→17:38)
[2018-12-28] MEDS: FUROSEMIDE 100MG/10ML VIAL IVP SCH ×2 (06:22→17:38)
[2018-12-28 06:56] LABS: HEMATOCRIT. 40.4 % (42.0-52.0); HEMOGLOBIN. 12.9 g/dL (14.0-18.0); LYMPHOCYTES % 10.9 % (20.0-50.0); MEAN CORPUSCULAR HEMOGLOBIN 27.9 pg (28.0-32.0); MEAN PLATELET VOLUME 9.9 fl (7.4-10.4); MONOCYTES % 5.8 % (2.0-8.0); NEUTROPHILS % 83.3 % (40.0-76.0); PLATELET 176 x1000/uL (130-400); RED BLOOD CELL COUNT 4.64 mill/uL (4.7-6.1); RED CELL DISTRIBUTION WIDTH 16.8 % (11.6-14.6)
[2018-12-28] MEDS: HYDRALAZINE HCL 50MG TABLET PO SCH ×2 (10:10→21:20)
[2018-12-28] MEDS: LOSARTAN POTASSIUM 50 MG TABLET PO SCH (10:11)
[2018-12-28] MEDS: CARVEDILOL 25MG TABLET PO SCH ×2 (10:11→17:39)
[2018-12-28] MEDS: NICOTINE 7MG PATCH TOP SCH (10:12)
[2018-12-28] MEDS: ENOXAPARIN 30MG/0.3ML SYR SUBCUT SCH ×2 (10:12→21:21)
[2018-12-28 17:40] LABS: CLARITY URINE CLEAR (CLEAR); COLOR URINE YELLOW (YELLOW); KETONES URINE NEGATIVE (NEGATIVE); LEUKOCYTE ESTERASE URINE NEGATIVE (NEGATIVE); NITRITE URINE NEGATIVE (NEGATIVE); OCCULT BLOOD URINE NEGATIVE (NEGATIVE); PROTEIN URINE NEGATIVE (NEGATIVE); SPECIFIC GRAVITY URINE 1.006 (1.005-1.030); UROBILINOGEN URINE 0.2 E.U./dL (0.2-1.0)
[2018-12-28 17:46] LABS: *AMPHETAMINES SCREEN URINE NEGATIVE (NEGATIVE)
[2018-12-28 17:47] LABS: *BARBITURATES SCREEN URINE NEGATIVE (NEGATIVE); *BENZODIAZEPINES SCREEN URINE NEGATIVE (NEGATIVE); *COCAINE SCREEN URINE PRESUMTIVE POSITIVE (NEGATIVE); METHADONE URINE SCREEN NEGATIVE (NEGATIVE); OPIATES URINE SCREEN NEGATIVE (NEGATIVE); PHENCYCLIDINE URINE SCREEN NEGATIVE (NEGATIVE)
[2018-12-28 17:48] LABS: CANNABINOID URINE SCREEN NEGATIVE (NEGATIVE)
[2018-12-29] VITALS: BP 124/72
[2018-12-29] MEDS: GUAIFENESIN-DM 200MG-20MG/10ML UDC PO PRN (00:12)
[2018-12-29] MEDS: IPRATROPIUM BROMIDE (0.02%) 0.5MG/2.5ML NEB HHN SCH ×6 (00:40→21:36)
[2018-12-29 04:00] VITALS: BP 108/68
[2018-12-29] MEDS: FUROSEMIDE 100MG/10ML VIAL IVP SCH ×2 (06:34→16:39)
[2018-12-29] MEDS: METHYLPREDNISOLONE SOD SUCC 40 MG/ML VIAL IV SCH (06:34)
[2018-12-29 07:01] LABS: BASOPHILS % 0.2 % (0.0-2.0); HEMATOCRIT. 39.1 % (42.0-52.0); HEMOGLOBIN. 12.6 g/dL (14.0-18.0); LYMPHOCYTES % 9.5 % (20.0-50.0); MEAN CORPUSCULAR HEMOGLOBIN 27.5 pg (28.0-32.0); MEAN CORPUSCULAR VOLUME 85.1 fL (80.0-94.0); MEAN PLATELET VOLUME 9.7 fl (7.4-10.4); MONOCYTES % 5.5 % (2.0-8.0); NEUTROPHILS % 84.8 % (40.0-76.0); PLATELET 172 x1000/uL (130-400); RED BLOOD CELL COUNT 4.59 mill/uL (4.7-6.1); RED CELL DISTRIBUTION WIDTH 16.5 % (11.6-14.6)
[2018-12-29 08:00] VITALS: BP 122/76
[2018-12-29] MEDS: CARVEDILOL 25MG TABLET PO SCH ×2 (08:39→16:39)
[2018-12-29] MEDS: HYDRALAZINE HCL 50MG TABLET PO SCH ×3 (08:39→20:56)
[2018-12-29] MEDS: LOSARTAN POTASSIUM 100 MG TABLET PO SCH (08:39)
[2018-12-29] MEDS: NICOTINE 7MG PATCH TOP SCH (08:40)
[2018-12-29] MEDS: ENOXAPARIN 30MG/0.3ML SYR SUBCUT SCH ×2 (08:40→20:56)
[2018-12-29 12:04] VITALS: BP 129/75
[2018-12-29 15:45] VITALS: BP 130/76
[2018-12-29] MEDS: ACETAMINOPHEN 325MG TABLET PO PRN (18:02)
[2018-12-29 20:00] VITALS: BP 134/74
[2018-12-30] VITALS: BP 118/61
[2018-12-30] MEDS: IPRATROPIUM BROMIDE (0.02%) 0.5MG/2.5ML NEB HHN SCH ×6 (00:47→21:16)
[2018-12-30 04:00] VITALS: BP 146/87
[2018-12-30] MEDS: FUROSEMIDE 100MG/10ML VIAL IVP SCH ×3 (06:50→17:39)
[2018-12-30] MEDS: HYDRALAZINE HCL 50MG TABLET PO SCH ×3 (06:50→21:50)
[2018-12-30] MEDS: ONDANSETRON HCL 4MG/2ML INJ IV PRN (06:51)
[2018-12-30 08:00] VITALS: BP 142/87
[2018-12-30] MEDS: LOSARTAN POTASSIUM 100 MG TABLET PO SCH (08:53)
[2018-12-30] MEDS: PREDNISONE 20MG TABLET PO SCH (08:54)
[2018-12-30] MEDS: CARVEDILOL 25MG TABLET PO SCH ×2 (08:55→17:38)
[2018-12-30] MEDS: ENOXAPARIN 30MG/0.3ML SYR SUBCUT SCH ×2 (08:55→21:50)
[2018-12-30] MEDS: NICOTINE 7MG PATCH TOP SCH (08:56)
[2018-12-30 09:42] LABS: CHLORIDE 100 mEq/L (98-107)
[2018-12-30 12:00] VITALS: BP 120/76
[2018-12-30 16:00] VITALS: BP 118/67
[2018-12-30] MEDS: AZITHROMYCIN 500 MG TABLET PO SCH (17:38)
[2018-12-30 20:00] VITALS: BP 105/52
[2018-12-31] VITALS (7 sets, daily range): BP systolic 102–138; BP diastolic 57–85
[2018-12-31] MEDS: ONDANSETRON HCL 4MG/2ML INJ IV PRN ×2 (00:55→09:58)
[2018-12-31] MEDS: ACETAMINOPHEN 325MG TABLET PO PRN (00:55)
[2018-12-31] MEDS: IPRATROPIUM BROMIDE (0.02%) 0.5MG/2.5ML NEB HHN SCH ×4 (03:39→12:45)
[2018-12-31] MEDS: FUROSEMIDE 100MG/10ML VIAL IVP SCH ×2 (06:17→18:03)
[2018-12-31] MEDS: HYDRALAZINE HCL 50MG TABLET PO SCH ×2 (06:17→14:00)
[2018-12-31 06:20] LABS: BASOPHILS % 0.2 % (0.0-2.0); HEMATOCRIT. 41.1 % (42.0-52.0); HEMOGLOBIN. 13.3 g/dL (14.0-18.0); LYMPHOCYTES % 16.4 % (20.0-50.0); MEAN CORPUSCULAR HEMOGLOBIN 27.8 pg (28.0-32.0); MEAN CORPUSCULAR VOLUME 86.1 fL (80.0-94.0); MEAN PLATELET VOLUME 9.6 fl (7.4-10.4); MONOCYTES % 10.2 % (2.0-8.0); NEUTROPHILS % 73.2 % (40.0-76.0); PLATELET 167 x1000/uL (130-400); RED BLOOD CELL COUNT 4.77 mill/uL (4.7-6.1); RED CELL DISTRIBUTION WIDTH 16.5 % (11.6-14.6)
[2018-12-31 06:22] LABS: CHLORIDE 101 mEq/L (98-107)
[2018-12-31 06:34] LABS: PHOSPHORUS 2.3 mg/dL (2.5-4.9)
[2018-12-31] MEDS: CARVEDILOL 25MG TABLET PO SCH ×2 (09:48→18:03)
[2018-12-31] MEDS: AZITHROMYCIN 500 MG TABLET PO SCH (09:48)
[2018-12-31] MEDS: LOSARTAN POTASSIUM 100 MG TABLET PO SCH (09:48)
[2018-12-31] MEDS: PREDNISONE 20MG TABLET PO SCH (09:48)
[2018-12-31] MEDS: ENOXAPARIN 30MG/0.3ML SYR SUBCUT SCH (09:49)
[2018-12-31] MEDS: NICOTINE 7MG PATCH TOP SCH (09:49)
[2018-12-31] MEDS ORDERED: IPRATROPIUM/ALBUTEROL 0.5-3(2.5)MG/3ML NEB HHN PRN ×2 (16:15)
[2018-12-31] MEDS ORDERED: LOSA100T3 PO (17:26)
[2018-12-31] MEDS ORDERED: AZIT500T5 PO (17:26)
[2018-12-31] MEDS ORDERED: HYDR-4135 PO (17:26)
[2018-12-31] MEDS ORDERED: P20 PO (17:26)
== END 2018-12-31 22:33 | disposition home or self-care (01) | DRG 133 ==
LOC: ER 08:51 → ENRESERV 10:59 → 6WST 13:31
PROVIDERS: ADMIT Internal Medicine; ATTEND Internal Medicine
DX: J96.00 Acute respiratory failure, unspecified whether with hypoxia or hypercapnia (principal); N17.0 Acute kidney failure with tubular necrosis; I50.23 Acute on chronic systolic (congestive) heart failure; J18.9 Pneumonia, unspecified organism; I42.9 Cardiomyopathy, unspecified; I11.0 Hypertensive heart disease with heart failure; J44.0 Chronic obstructive pulmonary disease with (acute) lower respiratory infection; J44.1 Chronic obstructive pulmonary disease with (acute) exacerbation; D64.9 Anemia, unspecified; F14.90 Cocaine use, unspecified, uncomplicated; F19.10 Other psychoactive substance abuse, uncomplicated; F12.90 Cannabis use, unspecified, uncomplicated; F17.210 Nicotine dependence, cigarettes, uncomplicated; Z79.82 Long term (current) use of aspirin; Z79.899 Other long term (current) drug therapy; Z71.6 Tobacco abuse counseling
CPT/HCPCS: 36415; 71045; 80048; 80305; 82962; 83735; 83880; 84100; 84145; 84484; 93005; 94640; 96374; 96375; 99291; C1893; J1650; J1940; J2270; J2405; J2920; J7512; J7611; J7620

== ENCOUNTER 2019-01-22 10:19 | Inpatient (IN) | payer MEDICAID, OTHER ==
[~2019-01-22] VITALS: Ht 172.7 cm; Wt 103.4 kg
[~2019-01-22 10:19] MED LIST changes: +AZIT500T5 PO; +HYDR-4135 PO; -LISI10TA5 PO; +LOSA100T3 PO; +P20 PO; -SPIR25TA PO
[2019-01-22] MEDS ORDERED: FUROSEMIDE 40MG/4ML VIAL IV ONE (11:15)
[2019-01-22 11:25] LABS: HEMATOCRIT. 35.9 % (42.0-52.0); HEMOGLOBIN. 11.7 g/dL (14.0-18.0); MEAN CORPUSCULAR HEMOGLOBIN 27.2 pg (28.0-32.0); MEAN CORPUSCULAR VOLUME 83.4 fL (80.0-94.0); MEAN PLATELET VOLUME 9.5 fl (7.4-10.4); PLATELET 238 x1000/uL (130-400); RED CELL DISTRIBUTION WIDTH 18.9 % (11.6-14.6)
[2019-01-22 11:31] LABS: CHLORIDE 104 mEq/L (98-107)
[2019-01-22] MEDS ORDERED: ASPIRIN 325MG TABLET PO ONE (13:15)
[2019-01-22] MEDS ORDERED: LORAZEPAM 2MG/ML CPJ IV PRN (13:45)
[2019-01-22] MEDS ORDERED: IPRATROPIUM/ALBUTEROL 0.5-3(2.5)MG/3ML NEB INH PRN (13:45)
[2019-01-22] MEDS ORDERED: CLONIDINE 0.1MG TABLET PO PRN (13:45)
[2019-01-22] MEDS ORDERED: ACETAMINOPHEN 325MG TABLET PO PRN (13:45)
[2019-01-22] MEDS ORDERED: FUROSEMIDE 40MG/4ML VIAL IV SCH (13:45)
[2019-01-22] MEDS ORDERED: ALBUTEROL 6.7GM HFA INHALER INH SCH (13:45)
[2019-01-22] MEDS ORDERED: ONDANSETRON HCL 4MG/2ML INJ IV PRN (13:45)
[2019-01-22 14:15] LABS: PLATELET ESTIMATE NORMAL
[2019-01-22] MEDS ORDERED: LOSARTAN POTASSIUM 50 MG TABLET PO NR (16:05)
[2019-01-22] MEDS ORDERED: PREDNISONE 20MG TABLET PO NR (16:06)
[2019-01-22] MEDS ORDERED: ENOXAPARIN 40MG/0.4ML SYR SUBCUT NR (16:08)
[2019-01-22 17:48] VITALS: BP 128/86
[2019-01-22 20:00] VITALS: BP_SYST 132; BP_SYST 142; BP_DIAS 78; BP_DIAS 98
[2019-01-22] MEDS: FUROSEMIDE 40MG/4ML VIAL IVP SCH (20:20)
[2019-01-23] VITALS: BP 149/93
[2019-01-23 01:02] LABS: CREATINE KINASE 64 IU/L (39-308)
[2019-01-23 01:03] LABS: CREATINE KINASE MB FRACTION 1.9 ng/mL (0.5-3.6)
[2019-01-23] MEDS: HYDROCODONE/ACETAMINOPHEN 5/325MG TABLET PO PRN ×2 (01:30→21:20)
[2019-01-23 04:00] VITALS: BP 128/82
[2019-01-23 06:04] LABS: HEMATOCRIT. 38.7 % (42.0-52.0); HEMOGLOBIN. 12.8 g/dL (14.0-18.0); MEAN CORPUSCULAR HEMOGLOBIN 27.3 pg (28.0-32.0); MEAN CORPUSCULAR VOLUME 82.7 fL (80.0-94.0); MEAN PLATELET VOLUME 9.4 fl (7.4-10.4); PLATELET 220 x1000/uL (130-400); RED BLOOD CELL COUNT 4.68 mill/uL (4.7-6.1)
[2019-01-23 06:20] LABS: CHLORIDE 101 mEq/L (98-107)
[2019-01-23 08:00] VITALS: BP 130/90
[2019-01-23] MEDS: FUROSEMIDE 40MG/4ML VIAL IVP SCH ×2 (08:10→16:51)
[2019-01-23] MEDS: FOLIC ACID 1MG TABLET PO SCH (08:10)
[2019-01-23] MEDS: LOSARTAN POTASSIUM 50 MG TABLET PO SCH (08:11)
[2019-01-23] MEDS: ASPIRIN 81MG EC TABLET PO SCH (08:11)
[2019-01-23] MEDS: ENOXAPARIN 30MG/0.3ML SYR SUBCUT SCH ×2 (08:11→21:15)
[2019-01-23] MEDS: THIAMINE HCL 100MG TABLET PO SCH (08:15)
[2019-01-23 08:22] LABS: PLATELET ESTIMATE NORMAL
[2019-01-23] MEDS ORDERED: ASPIRIN 81MG TABLET PO SCH (09:00)
[2019-01-23] MEDS ORDERED: PREDNISONE 20MG TABLET PO SCH (09:00)
[2019-01-23 11:49] VITALS: BP 130/91
[2019-01-23 13:48] LABS: *AMPHETAMINES SCREEN URINE PRESUMTIVE POSITIVE (NEGATIVE); *BARBITURATES SCREEN URINE NEGATIVE (NEGATIVE); *BENZODIAZEPINES SCREEN URINE NEGATIVE (NEGATIVE); *COCAINE SCREEN URINE PRESUMTIVE POSITIVE (NEGATIVE); OPIATES URINE SCREEN NEGATIVE (NEGATIVE)
[2019-01-23 13:49] LABS: CANNABINOID URINE SCREEN NEGATIVE (NEGATIVE); METHADONE URINE SCREEN NEGATIVE (NEGATIVE); PHENCYCLIDINE URINE SCREEN NEGATIVE (NEGATIVE)
[2019-01-23 14:42] LABS: CLARITY URINE CLEAR (CLEAR); COLOR URINE YELLOW (YELLOW); KETONES URINE NEGATIVE (NEGATIVE); LEUKOCYTE ESTERASE URINE NEGATIVE (NEGATIVE); NITRITE URINE NEGATIVE (NEGATIVE); OCCULT BLOOD URINE NEGATIVE (NEGATIVE); PROTEIN URINE NEGATIVE (NEGATIVE); SPECIFIC GRAVITY URINE 1.007 (1.005-1.030)
[2019-01-23 15:48] VITALS: BP 145/90
[2019-01-23 20:00] VITALS: BP 145/55
[2019-01-24] VITALS: BP 145/85
[2019-01-24] MEDS: BUDESONIDE 0.5MG/2ML NEB HHN SCH ×2 (00:34→08:50)
[2019-01-24 03:48] VITALS: BP 145/99
[2019-01-24] MEDS: HYDROCODONE/ACETAMINOPHEN 5/325MG TABLET PO PRN (03:53)
[2019-01-24 06:12] LABS: HEMATOCRIT. 38.3 % (42.0-52.0); HEMOGLOBIN. 12.7 g/dL (14.0-18.0); MEAN CORPUSCULAR HEMOGLOBIN 27.5 pg (28.0-32.0); MEAN CORPUSCULAR VOLUME 82.6 fL (80.0-94.0); MEAN PLATELET VOLUME 9.4 fl (7.4-10.4); PLATELET 230 x1000/uL (130-400); RED BLOOD CELL COUNT 4.63 mill/uL (4.7-6.1); RED CELL DISTRIBUTION WIDTH 18.3 % (11.6-14.6)
[2019-01-24 06:17] LABS: CHLORIDE 100 mEq/L (98-107)
[2019-01-24 08:24] VITALS: BP 137/96
[2019-01-24] MEDS: LOSARTAN POTASSIUM 50 MG TABLET PO SCH (09:59)
[2019-01-24] MEDS: THIAMINE HCL 100MG TABLET PO SCH (09:59)
[2019-01-24] MEDS: FOLIC ACID 1MG TABLET PO SCH (09:59)
[2019-01-24] MEDS: FUROSEMIDE 40MG/4ML VIAL IVP SCH (09:59)
[2019-01-24] MEDS: ASPIRIN 81MG EC TABLET PO SCH (09:59)
[2019-01-24] MEDS: ENOXAPARIN 30MG/0.3ML SYR SUBCUT SCH (09:59)
[2019-01-24 12:00] VITALS: BP 114/71
[2019-01-24 13:24] LABS: PLATELET ESTIMATE NORMAL
[2019-01-24 13:34] VITALS: BP 141/71
== END 2019-01-24 15:10 | disposition home or self-care (01) | DRG 194 ==
LOC: ER 10:19 → SUPCPDRO 13:37 → EDBEDREQSVC 13:48 → EDBEDREQ 13:48 → 8WST 14:57 → EDBEDREQSVC 14:58 → ENRESERV 16:54
PROVIDERS: ADMIT Internal Medicine Nephrology; ATTEND Internal Medicine Nephrology
DX: I11.0 Hypertensive heart disease with heart failure (principal); E44.0 Moderate protein-calorie malnutrition; I42.9 Cardiomyopathy, unspecified; I50.23 Acute on chronic systolic (congestive) heart failure; J44.9 Chronic obstructive pulmonary disease, unspecified; F17.210 Nicotine dependence, cigarettes, uncomplicated; F14.90 Cocaine use, unspecified, uncomplicated; D64.9 Anemia, unspecified; F15.90 Other stimulant use, unspecified, uncomplicated; Z68.34 Body mass index [BMI] 34.0-34.9, adult; Z79.899 Other long term (current) drug therapy; Z79.82 Long term (current) use of aspirin; Z71.51 Drug abuse counseling and surveillance of drug abuser; Z71.6 Tobacco abuse counseling
CPT/HCPCS: 36415; 71045; 80048; 80305; 82550; 82553; 83880; 84484; 93005; 94640; 96374; 99285; J1650; J1940; J7512; J7620; J7626

== ENCOUNTER 2019-02-05 17:59 | Inpatient (IN) | payer MEDICAID, OTHER ==
[~2019-02-05] VITALS: Ht 193 cm; Wt 98.1 kg
[~2019-02-05 17:59] MED LIST changes: -AZIT500T5 PO; +GUAIFENESIN/DM 600MG/30MG ER TAB 12HR PO SCH; -HYDR-4135 PO; -NICO-786 TD; -P20 PO
[2019-02-05] MEDS ORDERED: METHYLPREDNISOLONE SOD SUCC 125 MG/2 ML VIAL IV STA (18:46)
[2019-02-05] MEDS ORDERED: ASPIRIN 81MG TABLET PO ONE (19:00)
[2019-02-05] MEDS ORDERED: LEVOFLOXACIN 500MG PREMIX 100 ML IV ONE (19:00)
[2019-02-05] MEDS ORDERED: IPRATROPIUM/ALBUTEROL 0.5-3(2.5)MG/3ML NEB HHN ONE (19:00)
[2019-02-05 19:07] LABS: CHLORIDE 102 mEq/L (98-107)
[2019-02-05 19:09] LABS: BASOPHILS % 0.8 % (0.0-2.0); EOSINOPHILS % 1.8 % (0.0-5.0); HEMATOCRIT. 35.6 % (42.0-52.0); HEMOGLOBIN. 11.5 g/dL (14.0-18.0); INR 1.1; LYMPHOCYTES % 12.2 % (20.0-50.0); MEAN CORPUSCULAR HEMOGLOBIN 27.2 pg (28.0-32.0); MEAN CORPUSCULAR VOLUME 84.3 fL (80.0-94.0); MONOCYTES % 9.6 % (2.0-8.0); NEUTROPHILS % 75.6 % (40.0-76.0); PLATELET 189 x1000/uL (130-400); PROTHROMBIN TIME 11.6 sec (9.6-11.0); RED BLOOD CELL COUNT 4.23 mill/uL (4.7-6.1); RED CELL DISTRIBUTION WIDTH 19.8 % (11.6-14.6)
[2019-02-05 19:10] LABS: ETHANOL BLOOD < 10 mg/dL
[2019-02-05 20:20] LABS: HEPATITIS B SURFACE ANTIGEN NEGATIVE
[2019-02-05 20:21] LABS: HEPATITIS A AB IGM NEGATIVE (NEGATIVE)
[2019-02-05] MEDS ORDERED: IPRATROPIUM/ALBUTEROL 0.5-3(2.5)MG/3ML NEB INH PRN (21:15)
[2019-02-05] MEDS ORDERED: KETOROLAC 15MG/ML VIAL IV PRN (21:15)
[2019-02-05] MEDS ORDERED: ONDANSETRON HCL 4MG/2ML INJ IV PRN (21:15)
[2019-02-05] MEDS ORDERED: MAGNESIUM/ALUMINUM HYDROXIDE/SIMETHICONE 30ML UDC PO PRN (21:15)
[2019-02-05] MEDS ORDERED: NITROGLYCERIN 0.4MG TABLET SL SL PRN (21:15)
[2019-02-05] MEDS ORDERED: DOCUSATE SODIUM 100MG CAPSULE PO PRN (21:15)
[2019-02-05] MEDS ORDERED: ACETAMINOPHEN 325MG TABLET PO PRN (21:15)
[2019-02-05] MEDS ORDERED: LEVOFLOXACIN 500MG PREMIX 100 ML IV SCH (21:15)
[2019-02-05] MEDS ORDERED: GUAIFENESIN 200MG/10ML SUGAR FREE UDC PO PRN (21:15)
[2019-02-05] MEDS ORDERED: CLONIDINE 0.1MG TABLET PO PRN (21:15)
[2019-02-05] MEDS ORDERED: ZOLPIDEM TARTRATE 5MG TABLET PO PRN (21:15)
[2019-02-05] MEDS ORDERED: LORAZEPAM 0.5MG TABLET PO PRN (21:15)
[2019-02-05] MEDS ORDERED: NA PHOS,M-B/NA PHOS,DI-BA ENEMA 118ML PR PRN (21:15)
[2019-02-05 22:45] LABS: CLARITY URINE CLEAR (CLEAR); COLOR URINE YELLOW (YELLOW); KETONES URINE NEGATIVE (NEGATIVE); LEUKOCYTE ESTERASE URINE NEGATIVE (NEGATIVE); NITRITE URINE NEGATIVE (NEGATIVE); OCCULT BLOOD URINE NEGATIVE (NEGATIVE); PH URINE 5.5 (4.5-8.0); PROTEIN URINE NEGATIVE (NEGATIVE); SPECIFIC GRAVITY URINE 1.012 (1.005-1.030)
[2019-02-05] MEDS: GUAIFENESIN/DM 600MG/30MG ER TAB 12HR PO SCH (22:50)
[2019-02-05 22:58] LABS: *AMPHETAMINES SCREEN URINE PRESUMTIVE POSITIVE (NEGATIVE); *BARBITURATES SCREEN URINE NEGATIVE (NEGATIVE); *BENZODIAZEPINES SCREEN URINE NEGATIVE (NEGATIVE); *COCAINE SCREEN URINE PRESUMTIVE POSITIVE (NEGATIVE); METHADONE URINE SCREEN NEGATIVE (NEGATIVE); OPIATES URINE SCREEN NEGATIVE (NEGATIVE)
[2019-02-05 22:59] LABS: CANNABINOID URINE SCREEN NEGATIVE (NEGATIVE); PHENCYCLIDINE URINE SCREEN NEGATIVE (NEGATIVE)
[2019-02-05 23:39] LABS: CREATINE KINASE 60 IU/L (39-308)
[2019-02-05 23:40] LABS: CREATINE KINASE MB FRACTION 1.3 ng/mL (0.5-3.6)
[2019-02-06] VITALS: BP 128/81
[2019-02-06] MEDS: IPRATROPIUM/ALBUTEROL 0.5-3(2.5)MG/3ML NEB HHN SCH ×3 (01:38→07:29)
[2019-02-06 04:00] VITALS: BP 125/79
[2019-02-06] MEDS: DILTIAZEM HCL 60MG TABLET PO SCH ×2 (05:11→13:38)
[2019-02-06] MEDS ORDERED: METHYLPREDNISOLONE SOD SUCC 125 MG/2 ML VIAL IV SCH (06:00)
[2019-02-06 06:38] LABS: CREATINE KINASE MB FRACTION 1.1 ng/mL (0.5-3.6)
[2019-02-06 08:00] VITALS: BP 125/87
[2019-02-06] MEDS: GUAIFENESIN/DM 600MG/30MG ER TAB 12HR PO SCH (08:37)
[2019-02-06] MEDS ORDERED: ENOXAPARIN 30MG/0.3ML SYR SUBCUT SCH (09:00)
[2019-02-06] MEDS ORDERED: ASPIRIN 325MG EC TABLET PO SCH (09:00)
[2019-02-06] MEDS ORDERED: FAMOTIDINE 20MG TABLET PO SCH (09:00)
[2019-02-06 12:00] VITALS: BP 114/73
[2019-02-06 13:08] VITALS: BP 114/73
[2019-02-06] MEDS ORDERED: LEVOFLOXACIN 500MG PREMIX 100 ML IV SCH (20:00)
== END 2019-02-06 15:15 | disposition home or self-care (01) | DRG 140 ==
LOC: ER 17:59 → 5WST 20:53 → EDBEDREQ 20:56 → EDBEDREQTM 20:56 → ENRESERV 23:08
PROVIDERS: ADMIT Internal Medicine; ATTEND Internal Medicine
DX: J44.1 Chronic obstructive pulmonary disease with (acute) exacerbation (principal); I11.0 Hypertensive heart disease with heart failure; E44.0 Moderate protein-calorie malnutrition; I50.9 Heart failure, unspecified; E83.51 Hypocalcemia; D63.8 Anemia in other chronic diseases classified elsewhere; F15.10 Other stimulant abuse, uncomplicated; F17.210 Nicotine dependence, cigarettes, uncomplicated; D64.9 Anemia, unspecified; Z91.14 Patient's other noncompliance with medication regimen; Z91.19 Patient's noncompliance with other medical treatment and regimen; Z68.26 Body mass index [BMI] 26.0-26.9, adult; Z71.51 Drug abuse counseling and surveillance of drug abuser
CPT/HCPCS: 36415; 71045; 80061; 80305; 80320; 82550; 82553; 83036; 83605; 83880; 84484; 86705; 86709; 86803; 87340; 93005; 93970; 94640; 96365; 96375; 99285; J1650; J1956; J2930; J7620; G0480

== ENCOUNTER 2019-02-19 22:14 | Emergency (ER) | payer MEDICAID ==
[~2019-02-19] VITALS: Ht 188 cm; Wt 107.0 kg
[~2019-02-19 22:14] MED LIST changes: -GUAIFENESIN/DM 600MG/30MG ER TAB 12HR PO SCH
[2019-02-19] MEDS ORDERED: FAMOTIDINE 20MG TABLET PO ONE (23:00)
[2019-02-19] MEDS ORDERED: ONDANSETRON HCL 4MG/2ML INJ IV STA (23:13)
[2019-02-19] MEDS ORDERED: SODIUM CHLORIDE 0.9% 1,000 ML IV ONE (23:13)
[2019-02-20 00:49] LABS: CLARITY URINE CLEAR (CLEAR); COLOR URINE YELLOW (YELLOW); KETONES URINE NEGATIVE (NEGATIVE); LEUKOCYTE ESTERASE URINE NEGATIVE (NEGATIVE); NITRITE URINE NEGATIVE (NEGATIVE); OCCULT BLOOD URINE NEGATIVE (NEGATIVE); PH URINE 5.5 (4.5-8.0); PROTEIN URINE NEGATIVE (NEGATIVE); SPECIFIC GRAVITY URINE 1.013 (1.005-1.030)
[2019-02-20 00:57] LABS: HEMOGLOBIN. 11.3 g/dL (14.0-18.0); MEAN PLATELET VOLUME 9.8 fl (7.4-10.4)
[2019-02-20 01:01] LABS: CHLORIDE 105 mEq/L (98-107)
[2019-02-20 01:06] LABS: ETHANOL BLOOD < 10 mg/dL
[2019-02-20 01:08] LABS: HEMATOCRIT. 34.6 % (42.0-52.0); MEAN CORPUSCULAR HEMOGLOBIN 26.9 pg (28.0-32.0); MEAN CORPUSCULAR VOLUME 82.1 fL (80.0-94.0); PLATELET 197 x1000/uL (130-400); RED BLOOD CELL COUNT 4.21 mill/uL (4.7-6.1); RED CELL DISTRIBUTION WIDTH 19.5 % (11.6-14.6)
[2019-02-20 02:11] LABS: PLATELET ESTIMATE NORMAL
[2019-02-20] MEDS ORDERED: ONDANSETRON HCL 4MG/2ML INJ IV ONE (03:00)
[2019-02-20] MEDS ORDERED: MAGNESIUM/ALUMINUM HYDROXIDE/SIMETHICONE 30ML UDC PO STA (12:44)
[2019-02-20] MEDS ORDERED: FAMOTIDINE 20MG TABLET PO ONE (12:45)
[2019-02-20] MEDS ORDERED: ONDANSETRON 4MG ODT PO ONE (12:45)
[2019-02-20 19:18] VITALS: BP 148/82
== END 2019-02-20 19:20 | disposition home or self-care (01) ==
LOC: ER 22:14
DX: R55 Syncope and collapse (principal); R11.0 Nausea; F17.210 Nicotine dependence, cigarettes, uncomplicated; R03.0 Elevated blood-pressure reading, without diagnosis of hypertension; Z79.82 Long term (current) use of aspirin
CPT/HCPCS: 36415; 70450; 80053; 80307; 80320; 81003; 84484; 85025; 93005; 96374; 96376; 99284; J2405; J7030; Q0162; G0480

== ENCOUNTER 2019-02-24 13:40 | Emergency (ER) | payer MEDICAID ==
[~2019-02-24] VITALS: Ht 177.8 cm; Wt 98.0 kg
[2019-02-24] MEDS ORDERED: SODIUM CHLORIDE 0.9% 1,000 ML IV ONE (15:38)
[2019-02-24] MEDS ORDERED: ONDANSETRON HCL 4MG/2ML INJ IV ONE (16:00)
[2019-02-24 16:15] LABS: CLARITY URINE CLEAR (CLEAR); COLOR URINE YELLOW (YELLOW); KETONES URINE NEGATIVE (NEGATIVE); LEUKOCYTE ESTERASE URINE NEGATIVE (NEGATIVE); NITRITE URINE NEGATIVE (NEGATIVE); OCCULT BLOOD URINE NEGATIVE (NEGATIVE); PH URINE 8.5 (4.5-8.0); PROTEIN URINE NEGATIVE (NEGATIVE)
[2019-02-24 16:22] LABS: CHLORIDE 104 mEq/L (98-107)
[2019-02-24 16:23] LABS: HEMATOCRIT. 31.2 % (42.0-52.0); HEMOGLOBIN. 10.5 g/dL (14.0-18.0); INR 1.1; MEAN CORPUSCULAR HEMOGLOBIN 27.6 pg (28.0-32.0); MEAN CORPUSCULAR VOLUME 81.9 fL (80.0-94.0); MEAN PLATELET VOLUME 9.3 fl (7.4-10.4); PLATELET 211 x1000/uL (130-400); PROTHROMBIN TIME 10.9 sec (9.6-11.0)
[2019-02-24 16:47] LABS: PLATELET ESTIMATE NORMAL
[2019-02-24 20:42] VITALS: BP 142/80
[2019-02-28] MEDS ORDERED: FAMO-135 PO (00:30)
[2019-02-28] MEDS ORDERED: IBUP-2077 PO (00:32)
[2019-02-28] MEDS ORDERED: AMOX500T2 PO (00:32)
== END 2019-02-24 20:28 | disposition home or self-care (01) ==
LOC: ER 13:40
DX: K29.00 Acute gastritis without bleeding (principal); E86.0 Dehydration; F14.10 Cocaine abuse, uncomplicated; F17.210 Nicotine dependence, cigarettes, uncomplicated
CPT/HCPCS: 36415; 74176; 80053; 81003; 82962; 83605; 83690; 85025; 85610; 93005; 96374; 99284; J2405; J7030

== ENCOUNTER 2019-02-26 13:27 | Emergency (ER) | payer MEDICAID ==
[~2019-02-26] VITALS: Ht 188 cm; Wt 100.0 kg
[2019-02-26 16:03] LABS: BASOPHILS % 0.6 % (0.0-2.0); EOSINOPHILS % 2.5 % (0.0-5.0); HEMATOCRIT. 27.9 % (42.0-52.0); HEMOGLOBIN. 9.2 g/dL (14.0-18.0); LYMPHOCYTES % 27.4 % (20.0-50.0); MEAN CORPUSCULAR HEMOGLOBIN 27.1 pg (28.0-32.0); MEAN CORPUSCULAR VOLUME 81.8 fL (80.0-94.0); MEAN PLATELET VOLUME 9.8 fl (7.4-10.4); MONOCYTES % 9.3 % (2.0-8.0); NEUTROPHILS % 60.2 % (40.0-76.0); PLATELET 230 x1000/uL (130-400); RED BLOOD CELL COUNT 3.41 mill/uL (4.7-6.1); RED CELL DISTRIBUTION WIDTH 19.4 % (11.6-14.6)
[2019-02-26 16:09] LABS: CHLORIDE 106 mEq/L (98-107)
[2019-02-26 16:09] LABS: CLARITY URINE CLEAR (CLEAR); COLOR URINE YELLOW (YELLOW); KETONES URINE NEGATIVE (NEGATIVE); LEUKOCYTE ESTERASE URINE NEGATIVE (NEGATIVE); NITRITE URINE NEGATIVE (NEGATIVE); OCCULT BLOOD URINE NEGATIVE (NEGATIVE); PROTEIN URINE NEGATIVE (NEGATIVE); SPECIFIC GRAVITY URINE 1.006 (1.005-1.030)
[2019-02-26 17:18] LABS: *AMPHETAMINES SCREEN URINE NEGATIVE (NEGATIVE); *BARBITURATES SCREEN URINE NEGATIVE (NEGATIVE); *BENZODIAZEPINES SCREEN URINE NEGATIVE (NEGATIVE); *COCAINE SCREEN URINE PRESUMTIVE POSITIVE (NEGATIVE)
[2019-02-26 17:19] LABS: CANNABINOID URINE SCREEN NEGATIVE (NEGATIVE); METHADONE URINE SCREEN NEGATIVE (NEGATIVE); OPIATES URINE SCREEN NEGATIVE (NEGATIVE); PHENCYCLIDINE URINE SCREEN NEGATIVE (NEGATIVE)
[2019-02-26 18:34] VITALS: BP 118/75
[2019-02-28] MEDS ORDERED: FAMO-135 PO (00:30)
[2019-02-28] MEDS ORDERED: AMOX500T2 PO (00:32)
[2019-02-28] MEDS ORDERED: IBUP-2077 PO (00:32)
== END 2019-02-26 18:36 | disposition home or self-care (01) ==
LOC: ER 13:27
DX: I95.2 Hypotension due to drugs (principal); J44.9 Chronic obstructive pulmonary disease, unspecified; F15.10 Other stimulant abuse, uncomplicated; I11.0 Hypertensive heart disease with heart failure; I50.9 Heart failure, unspecified; T44.7X5A Adverse effect of beta-adrenoreceptor antagonists, initial encounter; T46.5X5A Adverse effect of other antihypertensive drugs, initial encounter; T50.1X5A Adverse effect of loop [high-ceiling] diuretics, initial encounter; Y92.018 Other place in single-family (private) house as the place of occurrence of the external cause
CPT/HCPCS: 36415; 80305; 81003; 93005; 99284

== ENCOUNTER 2019-04-05 17:16 | Inpatient (IN) | payer MEDICAID ==
[~2019-04-05] VITALS: Ht 193 cm; Wt 90.7 kg
[~2019-04-05 17:16] MED LIST changes: +ALBU4TAB6 INH; -ALBU6.7H INH; -ASPI-1158 PO; +CARV25TA47 PO; -COR25 PO; +COR3 PO; +DOCU-272 PO; +FERR220S12 PO; +FLUT1AER5 IH; -FURO10VI3 PO; +FURO40TA5 MT; +LISI-186 PO; -LOSA100T3 PO; +LOSA50TA41 MT; -PULM50 HHN
[2019-04-05] MEDS ORDERED: SODIUM CHLORIDE 0.9% 1,000 ML IV ONE (17:34)
[2019-04-05] MEDS ORDERED: ACETAMINOPHEN 325MG TABLET PO ONE (17:45)
[2019-04-05] MEDS ORDERED: ASPIRIN 81MG TABLET PO ONE (17:45)
[2019-04-05] MEDS ORDERED: LEVOFLOXACIN 750MG PREMIX 150 ML IV ONE (17:45)
[2019-04-05] MEDS ORDERED: SODIUM CHLORIDE 0.9% 1000ML BAG (SEPSIS BOLUS) IV ONE (17:45)
[2019-04-05 18:10] LABS: BASOPHILS % 0.7 % (0.0-2.0); EOSINOPHILS % 0.2 % (0.0-5.0); HEMATOCRIT. 30.5 % (42.0-52.0); HEMOGLOBIN. 9.9 g/dL (14.0-18.0); LYMPHOCYTES % 15.3 % (20.0-50.0); MEAN CORPUSCULAR HEMOGLOBIN 24.9 pg (28.0-32.0); MEAN CORPUSCULAR VOLUME 77.1 fL (80.0-94.0); MONOCYTES % 10.1 % (2.0-8.0); NEUTROPHILS % 73.7 % (40.0-76.0); PLATELET 318 x1000/uL (130-400); RED BLOOD CELL COUNT 3.95 mill/uL (4.7-6.1); RED CELL DISTRIBUTION WIDTH 18.6 % (11.6-14.6)
[2019-04-05 18:16] LABS: CHLORIDE 98 mEq/L (98-107)
[2019-04-05 18:21] LABS: D-DIMER 1.34 mg/L FEU (<0.50); PROTHROMBIN TIME 10.3 sec (9.6-11.0)
[2019-04-05 19:46] LABS: CLARITY URINE CLEAR (CLEAR); COLOR URINE YELLOW (YELLOW); KETONES URINE NEGATIVE (NEGATIVE); LEUKOCYTE ESTERASE URINE NEGATIVE (NEGATIVE); NITRITE URINE NEGATIVE (NEGATIVE); OCCULT BLOOD URINE NEGATIVE (NEGATIVE); PH URINE >=9.0 (4.5-8.0); PROTEIN URINE 1+ (NEGATIVE); SPECIFIC GRAVITY URINE 1.013 (1.005-1.030)
[2019-04-05] MEDS ORDERED: LORAZEPAM 0.5MG TABLET PO PRN (20:45)
[2019-04-05] MEDS ORDERED: MAGNESIUM/ALUMINUM HYDROXIDE/SIMETHICONE 30ML UDC PO PRN (20:45)
[2019-04-05] MEDS ORDERED: CLONIDINE 0.1MG TABLET PO PRN (20:45)
[2019-04-05] MEDS ORDERED: DOCUSATE SODIUM 100MG CAPSULE PO PRN (20:45)
[2019-04-05] MEDS ORDERED: KETOROLAC 15MG/ML VIAL IV PRN (20:45)
[2019-04-05] MEDS ORDERED: ACETAMINOPHEN 325MG TABLET PO PRN (20:45)
[2019-04-05] MEDS ORDERED: IPRATROPIUM/ALBUTEROL 0.5-3(2.5)MG/3ML NEB NEB PRN (20:45)
[2019-04-05] MEDS ORDERED: GUAIFENESIN 200MG/10ML SUGAR FREE UDC PO PRN (20:45)
[2019-04-05] MEDS ORDERED: ONDANSETRON HCL 4MG/2ML INJ IV PRN (20:45)
[2019-04-05] MEDS ORDERED: IOHEXOL-350 100 ML BOTTLE ONE (22:52)
[2019-04-05] MEDS ORDERED: POTASSIUM CHLORIDE 20MEQ TABLET SR PO NR (23:15)
[2019-04-06] MEDS ORDERED: AZITHROMYCIN 500 MG in DEXT 5% WATER 250 ML IV NR (00:15)
[2019-04-06 00:42] LABS: CREATINE KINASE 32 IU/L (39-308)
[2019-04-06 00:43] LABS: CREATINE KINASE MB FRACTION < 1.0 ng/mL (0.5-3.6)
[2019-04-06 06:27] LABS: CREATINE KINASE 45 IU/L (39-308)
[2019-04-06 06:28] LABS: CREATINE KINASE MB FRACTION < 1.0 ng/mL (0.5-3.6)
[2019-04-06] MEDS: ASCORBIC ACID 500 MG TABLET PO SCH ×2 (09:30→21:00)
[2019-04-06] MEDS: ZINC SULFATE 220 MG ( 50 ) CAPSULE PO SCH (09:30)
[2019-04-06] MEDS: ASPIRIN 325MG EC TABLET PO SCH (09:30)
[2019-04-06] MEDS: GUAIFENESIN/DM 600MG/30MG ER TAB 12HR PO SCH ×2 (09:30→21:00)
[2019-04-06] MEDS ORDERED: HYDRALAZINE 20MG/ML VIAL IV PRN (10:00)
[2019-04-06 10:09] LABS: *BARBITURATES SCREEN URINE NEGATIVE (NEGATIVE)
[2019-04-06 10:10] LABS: *AMPHETAMINES SCREEN URINE NEGATIVE (NEGATIVE); *BENZODIAZEPINES SCREEN URINE NEGATIVE (NEGATIVE); *COCAINE SCREEN URINE PRESUMTIVE POSITIVE (NEGATIVE); CANNABINOID URINE SCREEN NEGATIVE (NEGATIVE); METHADONE URINE SCREEN NEGATIVE (NEGATIVE); OPIATES URINE SCREEN NEGATIVE (NEGATIVE); PHENCYCLIDINE URINE SCREEN NEGATIVE (NEGATIVE)
[2019-04-06 11:00] VITALS: BP 159/83
[2019-04-06 12:00] VITALS: BP 159/83
[2019-04-06] MEDS: DILTIAZEM HCL 60MG TABLET PO SCH ×2 (12:00→17:23)
[2019-04-06] MEDS: PANTOPRAZOLE SODIUM 40 MG/VIAL IV SCH ×2 (13:26→17:25)
[2019-04-06] MEDS: ENOXAPARIN 40MG/0.4ML SYR SUBCUT SCH (13:27)
[2019-04-06] MEDS: CEFTRIAXONE 1 G PREMIX 50 ML IV SCH (13:27)
[2019-04-06] MEDS: DEXT 5%/0.9% NACL KCL 20MEQ/L 1,000 ML IV SCH ×2 (13:28→22:27)
[2019-04-06 16:00] VITALS: BP 145/82
[2019-04-06 20:00] VITALS: BP 151/85
[2019-04-06] MEDS ORDERED: ZOLPIDEM TARTRATE 5MG TABLET PO PRN (21:00)
[2019-04-06] MEDS ORDERED: PNEUMOCOCCAL 23-VAL P-SAC VAC 0.5 ML IM ONE (22:15)
[2019-04-06] MEDS ORDERED: AZITHROMYCIN 500 MG in DEXT 5% WATER 250 ML IV SCH (23:00)
[2019-04-07] VITALS (7 sets, daily range): BP systolic 118–146; BP diastolic 57–90
[2019-04-07] MEDS: DILTIAZEM HCL 60MG TABLET PO SCH ×4 (06:00→18:50)
[2019-04-07] MEDS: PANTOPRAZOLE SODIUM 40 MG/VIAL IV SCH ×2 (06:28→21:08)
[2019-04-07] MEDS: ASPIRIN 325MG EC TABLET PO SCH (09:00)
[2019-04-07] MEDS: ENOXAPARIN 40MG/0.4ML SYR SUBCUT SCH (09:00)
[2019-04-07] MEDS: GUAIFENESIN/DM 600MG/30MG ER TAB 12HR PO SCH ×2 (10:09→21:09)
[2019-04-07] MEDS: ASCORBIC ACID 500 MG TABLET PO SCH ×2 (10:09→21:09)
[2019-04-07] MEDS: ZINC SULFATE 220 MG ( 50 ) CAPSULE PO SCH (10:09)
[2019-04-07] MEDS ORDERED: SIMETHICONE 40 MG/0.6 ML 30ML ONE (10:51)
[2019-04-07] MEDS ORDERED: BACTERIOSTATIC SODIUM CHLORIDE 0.9% 30ML VIAL IJ ONE (10:51)
[2019-04-07 11:56] LABS: PARTIAL THROMBOPLASTIN TIME 40.8 sec (23.4-31.0); PROTHROMBIN TIME 10.7 sec (9.6-11.0)
[2019-04-07 11:58] LABS: CHLORIDE 105 mEq/L (98-107)
[2019-04-07 12:04] LABS: HEMOGLOBIN 9.8 g/dL (14.0-18.0); MEAN CORPUSCULAR HEMOGLOBIN 26.2 pg (28.0-32.0); PLATELET 310 x1000/uL (130-400); RED BLOOD CELL COUNT 3.75 mill/uL (4.7-6.1)
[2019-04-07] MEDS ORDERED: DIAZEPAM 5 MG/ML 2ML CPJ IV PRN (13:45)
[2019-04-07] MEDS: CEFTRIAXONE 1 G PREMIX 50 ML IV SCH (13:45)
[2019-04-07] MEDS ORDERED: MIDAZOLAM HCL 5 MG/5 ML VIAL IV PRN (14:39)
[2019-04-07] MEDS ORDERED: FENTANYL CITRATE/PF 50MCG/ML 2ML VIAL ONE (14:40)
[2019-04-07] MEDS ORDERED: FENTANYL CITRATE/PF 50MCG/ML 2ML VIAL IV PRN (14:40)
[2019-04-07] MEDS ORDERED: MIDAZOLAM HCL 5 MG/5 ML VIAL ONE (14:40)
[2019-04-07] MEDS: SUCRALFATE 1 G/10 ML UDC PO SCH ×3 (17:10→21:08)
[2019-04-07] MEDS: DEXT 5%/0.9% NACL KCL 20MEQ/L 1,000 ML IV SCH ×2 (18:00→18:52)
[2019-04-08] VITALS: BP 134/74
[2019-04-08] MEDS ORDERED: AZITHROMYCIN 500 MG in DEXT 5% WATER 250 ML IV SCH ×2
[2019-04-08] MEDS: DILTIAZEM HCL 60MG TABLET PO SCH ×2 (00:03→05:00)
[2019-04-08] MEDS: NITROGLYCERIN 0.4MG TABLET SL SL PRN ×2 (00:57→00:58)
[2019-04-08 04:00] VITALS: BP 115/65
[2019-04-08] MEDS: DEXT 5%/0.9% NACL KCL 20MEQ/L 1,000 ML IV SCH (04:55)
[2019-04-08] MEDS: SUCRALFATE 1 G/10 ML UDC PO SCH (06:17)
[2019-04-08 08:00] VITALS: BP 132/79
[2019-04-08] MEDS: PANTOPRAZOLE SODIUM 40 MG/VIAL IV SCH (08:36)
[2019-04-08] MEDS: GUAIFENESIN/DM 600MG/30MG ER TAB 12HR PO SCH (08:36)
[2019-04-08] MEDS: ASCORBIC ACID 500 MG TABLET PO SCH (08:36)
[2019-04-08] MEDS: ZINC SULFATE 220 MG ( 50 ) CAPSULE PO SCH (08:36)
[2019-04-08] MEDS: ASPIRIN 325MG EC TABLET PO SCH (09:00)
[2019-04-08] MEDS: ENOXAPARIN 40MG/0.4ML SYR SUBCUT SCH (09:00)
[2019-04-08 11:55] VITALS: BP 126/66
[2019-04-08] MEDS ORDERED: POTASSIUM CHLORIDE INJ 20 MEQ in DEXT 5%/0.9% NACL 1,000 ML IV SCH (13:00)
== END 2019-04-08 13:20 | disposition home or self-care (01) | DRG 720 ==
LOC: ER 17:16 → 8WST 20:11 → ENRESERV 04-06 08:10
PROVIDERS: ADMIT Internal Medicine; ATTEND Internal Medicine
PROC: 0DB68ZX Excision of Stomach, Via Natural or Artificial Opening Endoscopic, Diagnostic (ICD-10-PCS; principal; 2019-04-07)
DX: A41.9 Sepsis, unspecified organism (principal); E43 Unspecified severe protein-calorie malnutrition; I11.0 Hypertensive heart disease with heart failure; I50.9 Heart failure, unspecified; D50.9 Iron deficiency anemia, unspecified; F14.10 Cocaine abuse, uncomplicated; B19.20 Unspecified viral hepatitis C without hepatic coma; F17.210 Nicotine dependence, cigarettes, uncomplicated; R07.89 Other chest pain; K25.9 Gastric ulcer, unspecified as acute or chronic, without hemorrhage or perforation; E87.6 Hypokalemia; J44.9 Chronic obstructive pulmonary disease, unspecified; D63.8 Anemia in other chronic diseases classified elsewhere; E78.00 Pure hypercholesterolemia, unspecified; R65.20 Severe sepsis without septic shock; Z68.24 Body mass index [BMI] 24.0-24.9, adult
CPT/HCPCS: 36415; 71045; 71275; 74176; 80048; 80305; 81003; 82550; 82553; 83036; 83605; 83880; 84484; 85027; 85379; 88305; 88313; 93005; 93970; 99291; C9113; J0456; J0696; J1650; J1956; J2250; J3010; J3480; J3490; J7030; J7042; J7060; Q9967

== ENCOUNTER 2019-04-29 19:12 | Inpatient (IN) | payer MEDICAID ==
[~2019-04-29] VITALS: Ht 190.5 cm; Wt 90.9 kg
[2019-04-29] MEDS ORDERED: LEVOFLOXACIN 750MG PREMIX 150 ML IV ONE (20:30)
[2019-04-29] MEDS ORDERED: SODIUM CHLORIDE 0.9% 1000ML BAG (SEPSIS BOLUS) IV ONE (20:30)
[2019-04-29 21:12] LABS: CHLORIDE 102 mEq/L (98-107)
[2019-04-29 21:13] LABS: HEMOGLOBIN. 10.8 g/dL (14.0-18.0); MEAN CORPUSCULAR VOLUME 73.3 fL (80.0-94.0); MEAN PLATELET VOLUME 8.7 fl (7.4-10.4); PLATELET 269 x1000/uL (130-400); RED CELL DISTRIBUTION WIDTH 18.9 % (11.6-14.6)
[2019-04-29 21:15] LABS: PARTIAL THROMBOPLASTIN TIME 35.9 sec (23.4-31.0); PROTHROMBIN TIME 10.3 sec (9.6-11.0)
[2019-04-29 21:29] LABS: PLATELET ESTIMATE NORMAL
[2019-04-29 21:41] LABS: CLARITY URINE CLEAR (CLEAR); COLOR URINE YELLOW (YELLOW); KETONES URINE NEGATIVE (NEGATIVE); LEUKOCYTE ESTERASE URINE NEGATIVE (NEGATIVE); NITRITE URINE NEGATIVE (NEGATIVE); OCCULT BLOOD URINE NEGATIVE (NEGATIVE); PH URINE 7.5 (4.5-8.0); PROTEIN URINE 1+ (NEGATIVE); SPECIFIC GRAVITY URINE 1.012 (1.005-1.030)
[2019-04-29] MEDS ORDERED: ASPIRIN 81MG TABLET PO ONE (22:15)
[2019-04-30] VITALS (15 sets, daily range): BP systolic 82–186; BP diastolic 62–107
[2019-04-30] MEDS ORDERED: CLONIDINE 0.1MG TABLET PO PRN ×2 (02:15→11:00)
[2019-04-30] MEDS ORDERED: FUROSEMIDE 20MG/2ML VIAL IVP SCH (04:30)
[2019-04-30] MEDS ORDERED: HYDRALAZINE 20MG/ML VIAL IV SCH (04:30)
[2019-04-30] MEDS: IPRATROPIUM/ALBUTEROL 0.5-3(2.5)MG/3ML NEB HHN SCH ×5 (05:15→20:52)
[2019-04-30] MEDS ORDERED: LOSARTAN POTASSIUM 25 MG TABLET PO SCH (10:15)
[2019-04-30] MEDS ORDERED: DOCUSATE SODIUM 100MG CAPSULE PO PRN (11:00)
[2019-04-30] MEDS ORDERED: HYDROCODONE/ACETAMINOPHEN 5/325MG TABLET PO PRN (11:00)
[2019-04-30] MEDS ORDERED: ACETAMINOPHEN 325MG TABLET PO PRN (11:00)
[2019-04-30] MEDS ORDERED: DIPHENHYDRAMINE 50MG/ML VIAL IV PRN (11:00)
[2019-04-30] MEDS ORDERED: MAGNESIUM/ALUMINUM HYDROXIDE/SIMETHICONE 30ML UDC PO PRN (11:00)
[2019-04-30 11:14] LABS: CHLORIDE 103 mEq/L (98-107)
[2019-04-30 11:19] LABS: PHOSPHORUS 2.4 mg/dL (2.5-4.9)
[2019-04-30 11:29] LABS: HEMATOCRIT. 32.2 % (42.0-52.0); HEMOGLOBIN. 10.4 g/dL (14.0-18.0); MEAN CORPUSCULAR HEMOGLOBIN 23.9 pg (28.0-32.0); MEAN CORPUSCULAR VOLUME 73.8 fL (80.0-94.0); PLATELET 268 x1000/uL (130-400); RED BLOOD CELL COUNT 4.36 mill/uL (4.7-6.1); RED CELL DISTRIBUTION WIDTH 19.2 % (11.6-14.6)
[2019-04-30] MEDS: THIAMINE HCL 100MG TABLET PO SCH (11:31)
[2019-04-30] MEDS: FERROUS SULFATE 325MG TABLET PO SCH (11:31)
[2019-04-30] MEDS: MULTIVITAMINS,THER W-MINERALS TABLET PO SCH (11:31)
[2019-04-30] MEDS: ENOXAPARIN 40MG/0.4ML SYR SUBCUT SCH (11:32)
[2019-04-30 12:43] LABS: PLATELET ESTIMATE NORMAL
[2019-04-30] MEDS ORDERED: POTASSIUM CHLORIDE 20MEQ TABLET SR PO NR (14:45)
[2019-04-30 15:07] LABS: *AMPHETAMINES SCREEN URINE PRESUMTIVE POSITIVE (NEGATIVE); *BARBITURATES SCREEN URINE NEGATIVE (NEGATIVE); *BENZODIAZEPINES SCREEN URINE NEGATIVE (NEGATIVE); *COCAINE SCREEN URINE PRESUMTIVE POSITIVE (NEGATIVE); METHADONE URINE SCREEN NEGATIVE (NEGATIVE); OPIATES URINE SCREEN NEGATIVE (NEGATIVE)
[2019-04-30 15:08] LABS: CANNABINOID URINE SCREEN NEGATIVE (NEGATIVE); PHENCYCLIDINE URINE SCREEN NEGATIVE (NEGATIVE)
[2019-04-30] MEDS: SODIUM CHLORIDE 0.9% 1,000 ML IV SCH (18:45)
[2019-04-30] MEDS: LOSARTAN POTASSIUM 50 MG TABLET PO SCH (20:46)
[2019-04-30] MEDS ORDERED: LEVOFLOXACIN 250MG PREMIX 50 ML IV SCH (21:00)
[2019-04-30] MEDS ORDERED: THROAT LOZENGES-BENZOCAINE/MENTH/CETYLPYRD CL LOZENGES MM PRN (21:45)
[2019-04-30] MEDS ORDERED: TEMAZEPAM 15MG CAPSULE PO PRN (21:45)
[2019-04-30] MEDS: HYDRALAZINE HCL 50MG TABLET PO SCH (21:53)
[2019-05-01] VITALS (8 sets, daily range): BP systolic 113–152; BP diastolic 68–93
[2019-05-01] MEDS: IPRATROPIUM/ALBUTEROL 0.5-3(2.5)MG/3ML NEB HHN SCH ×2 (00:28→04:00)
[2019-05-01] MEDS: HYDRALAZINE HCL 50MG TABLET PO SCH ×2 (05:47→14:21)
[2019-05-01] MEDS: THIAMINE HCL 100MG TABLET PO SCH (08:54)
[2019-05-01] MEDS: FERROUS SULFATE 325MG TABLET PO SCH (08:54)
[2019-05-01] MEDS: MULTIVITAMINS,THER W-MINERALS TABLET PO SCH (08:54)
[2019-05-01] MEDS: LOSARTAN POTASSIUM 50 MG TABLET PO SCH (08:54)
[2019-05-01] MEDS ORDERED: FOLIC ACID 1MG TABLET PO SCH (09:00)
[2019-05-01 09:44] LABS: HEMATOCRIT. 28.7 % (42.0-52.0); HEMOGLOBIN. 9.3 g/dL (14.0-18.0); MEAN CORPUSCULAR HEMOGLOBIN 23.8 pg (28.0-32.0); MEAN CORPUSCULAR VOLUME 73.3 fL (80.0-94.0); MEAN PLATELET VOLUME 9.2 fl (7.4-10.4); PLATELET 236 x1000/uL (130-400); RED BLOOD CELL COUNT 3.91 mill/uL (4.7-6.1); RED CELL DISTRIBUTION WIDTH 18.6 % (11.6-14.6)
[2019-05-01 09:51] LABS: CHLORIDE 108 mEq/L (98-107)
[2019-05-01 09:58] LABS: PHOSPHORUS 2.8 mg/dL (2.5-4.9)
[2019-05-01] MEDS: SODIUM CHLORIDE 0.9% 1,000 ML IV SCH (11:40)
[2019-05-01] MEDS ORDERED: MAGNESIUM 1 G PREMIX 100 ML IV NR (12:00)
[2019-05-01] MEDS: ENOXAPARIN 40MG/0.4ML SYR SUBCUT SCH (14:21)
[2019-05-01 18:20] LABS: PLATELET ESTIMATE NORMAL
[2019-05-01] MEDS ORDERED: FAMOTIDINE 20MG TABLET PO SCH (21:00)
== END 2019-05-01 16:33 | disposition home or self-care (01) | DRG 204 ==
LOC: ER 19:12 → 3WST 22:42 → ENRESERV 23:23
PROVIDERS: ADMIT Family Medicine Adult Medicine; ATTEND Family Medicine Adult Medicine
DX: I95.1 Orthostatic hypotension (principal); E87.2 Acidosis; E44.0 Moderate protein-calorie malnutrition; I50.32 Chronic diastolic (congestive) heart failure; I11.0 Hypertensive heart disease with heart failure; D64.9 Anemia, unspecified; F10.10 Alcohol abuse, uncomplicated; R74.0 Nonspecific elevation of levels of transaminase and lactic acid dehydrogenase [LDH]; J44.9 Chronic obstructive pulmonary disease, unspecified; B19.20 Unspecified viral hepatitis C without hepatic coma; F19.10 Other psychoactive substance abuse, uncomplicated; F17.210 Nicotine dependence, cigarettes, uncomplicated; Z82.49 Family history of ischemic heart disease and other diseases of the circulatory system; Z87.11 Personal history of peptic ulcer disease; Z79.899 Other long term (current) drug therapy
CPT/HCPCS: 36415; 71045; 80048; 80076; 80305; 81003; 83605; 83735; 83880; 84100; 84145; 84443; 84484; 93005; 93970; 94640; 96374; 99285; J0360; J1650; J1940; J1956; J3475; J7030; J7620

== ENCOUNTER 2019-05-30 11:11 | Inpatient (IN) | payer MEDICAID ==
[~2019-05-30] VITALS: Ht 193 cm; Wt 90.7 kg
[~2019-05-30 11:11] MED LIST changes: -CARV25TA47 PO
[2019-05-30] MEDS ORDERED: SODIUM CHLORIDE 0.9% 500 ML IV ONE (11:22)
[2019-05-30 13:03] LABS: HEMATOCRIT. 43.4 % (42.0-52.0); HEMOGLOBIN. 13.8 g/dL (14.0-18.0); MEAN CORPUSCULAR HEMOGLOBIN 22.8 pg (28.0-32.0); MEAN CORPUSCULAR VOLUME 71.4 fL (80.0-94.0); MEAN PLATELET VOLUME 9.4 fl (7.4-10.4); PLATELET 264 x1000/uL (130-400); RED BLOOD CELL COUNT 6.07 mill/uL (4.7-6.1); RED CELL DISTRIBUTION WIDTH 20.3 % (11.6-14.6)
[2019-05-30 13:09] LABS: CHLORIDE 104 mEq/L (98-107)
[2019-05-30] MEDS ORDERED: FUROSEMIDE 40MG/4ML VIAL IVP NR (14:00)
[2019-05-30 14:08] LABS: PLATELET ESTIMATE NORMAL
[2019-05-30] MEDS ORDERED: IPRATROPIUM/ALBUTEROL 0.5-3(2.5)MG/3ML NEB NEB PRN (15:45)
[2019-05-30] MEDS ORDERED: LORAZEPAM 0.5MG TABLET PO PRN (15:45)
[2019-05-30] MEDS ORDERED: ONDANSETRON HCL 4MG/2ML INJ IV PRN (15:45)
[2019-05-30] MEDS ORDERED: MAGNESIUM/ALUMINUM HYDROXIDE/SIMETHICONE 30ML UDC PO PRN (15:45)
[2019-05-30] MEDS ORDERED: ACETAMINOPHEN 325MG TABLET PO PRN (15:45)
[2019-05-30] MEDS ORDERED: CLONIDINE 0.1MG TABLET PO PRN (15:45)
[2019-05-30] MEDS ORDERED: DOCUSATE SODIUM 100MG CAPSULE PO PRN (15:45)
[2019-05-30] MEDS ORDERED: GUAIFENESIN 200MG/10ML SUGAR FREE UDC PO PRN (15:45)
[2019-05-30] MEDS ORDERED: ZOLPIDEM TARTRATE 5MG TABLET PO PRN (15:45)
[2019-05-30] MEDS ORDERED: KETOROLAC 15MG/ML VIAL IV PRN (15:45)
[2019-05-30] MEDS ORDERED: NITROGLYCERIN 0.4MG TABLET SL SL PRN (15:45)
[2019-05-30 15:46] LABS: *AMPHETAMINES SCREEN URINE PRESUMTIVE POSITIVE (NEGATIVE); *BARBITURATES SCREEN URINE NEGATIVE (NEGATIVE); *BENZODIAZEPINES SCREEN URINE NEGATIVE (NEGATIVE); *COCAINE SCREEN URINE PRESUMTIVE POSITIVE (NEGATIVE)
[2019-05-30 15:47] LABS: CANNABINOID URINE SCREEN NEGATIVE (NEGATIVE); METHADONE URINE SCREEN NEGATIVE (NEGATIVE); OPIATES URINE SCREEN NEGATIVE (NEGATIVE); PHENCYCLIDINE URINE SCREEN NEGATIVE (NEGATIVE)
[2019-05-30 16:00] VITALS: BP 157/97
[2019-05-30 16:16] VITALS: BP 157/97
[2019-05-30] MEDS ORDERED: ENOXAPARIN 40MG/0.4ML SYR SUBCUT SCH (17:00)
[2019-05-30] MEDS: SUCRALFATE 1 G/10 ML UDC PO SCH ×2 (17:20→21:11)
[2019-05-30] MEDS ORDERED: LEVOFLOXACIN 500MG PREMIX 100 ML IV SCH (18:00)
[2019-05-30] MEDS: METHYLPREDNISOLONE SOD SUCC 125 MG/2 ML VIAL IV SCH (18:29)
[2019-05-30] MEDS: GUAIFENESIN/DM 600MG/30MG ER TAB 12HR PO SCH (18:29)
[2019-05-30 20:00] VITALS: BP 140/91
[2019-05-30] MEDS: LISINOPRIL 20MG TABLET PO SCH (21:11)
[2019-05-31] VITALS: BP 138/66
[2019-05-31] MEDS: IPRATROPIUM/ALBUTEROL 0.5-3(2.5)MG/3ML NEB HHN SCH ×3 (00:45→08:21)
[2019-05-31 00:55] LABS: CREATINE KINASE 36 IU/L (39-308)
[2019-05-31 00:56] LABS: CREATINE KINASE MB FRACTION < 1.0 ng/mL (0.5-3.6)
[2019-05-31] MEDS: METHYLPREDNISOLONE SOD SUCC 125 MG/2 ML VIAL IV SCH ×2 (02:26→09:01)
[2019-05-31 04:00] VITALS: BP 148/94
[2019-05-31] MEDS: GUAIFENESIN/DM 600MG/30MG ER TAB 12HR PO SCH (06:35)
[2019-05-31] MEDS: SUCRALFATE 1 G/10 ML UDC PO SCH (06:35)
[2019-05-31] MEDS ORDERED: PANTOPRAZOLE SODIUM 40 MG/VIAL IV SCH (09:00)
[2019-05-31] MEDS: LISINOPRIL 20MG TABLET PO SCH (09:08)
[2019-05-31 09:51] LABS: CREATINE KINASE 38 IU/L (39-308); CREATINE KINASE MB FRACTION < 1.0 ng/mL (0.5-3.6)
[2019-05-31 09:54] VITALS: BP 141/66
== END 2019-05-31 10:45 | disposition home or self-care (01) | DRG 140 ==
LOC: ER 11:11 → EDBEDREQ 11:25 → 6WST 13:55 → EDBEDREQ 14:00 → ENRESERV 14:49
PROVIDERS: ADMIT Internal Medicine; ATTEND Internal Medicine
DX: J44.1 Chronic obstructive pulmonary disease with (acute) exacerbation (principal); I11.0 Hypertensive heart disease with heart failure; I50.9 Heart failure, unspecified; R55 Syncope and collapse; B19.20 Unspecified viral hepatitis C without hepatic coma; D63.8 Anemia in other chronic diseases classified elsewhere; R74.0 Nonspecific elevation of levels of transaminase and lactic acid dehydrogenase [LDH]; F14.10 Cocaine abuse, uncomplicated; F15.10 Other stimulant abuse, uncomplicated; F17.210 Nicotine dependence, cigarettes, uncomplicated; K21.9 Gastro-esophageal reflux disease without esophagitis; Z87.11 Personal history of peptic ulcer disease; Z91.11 Patient's noncompliance with dietary regimen; Z91.14 Patient's other noncompliance with medication regimen; Z79.899 Other long term (current) drug therapy
CPT/HCPCS: 36415; 71045; 80305; 82550; 82553; 83880; 84484; 93005; 93970; 94640; 96374; 99285; C9113; J1650; J1940; J1956; J2930; J7030; J7620

== ENCOUNTER 2019-07-11 12:16 | Emergency (ER) | payer MEDICAID ==
[~2019-07-11] VITALS: Ht 190.5 cm; Wt 104.0 kg
[2019-07-11 13:29] LABS: HEMATOCRIT. 35.8 % (42.0-52.0); HEMOGLOBIN. 11.6 g/dL (14.0-18.0); MEAN CORPUSCULAR HEMOGLOBIN 23.1 pg (28.0-32.0); MEAN CORPUSCULAR VOLUME 71.4 fL (80.0-94.0); MEAN PLATELET VOLUME 9.1 fl (7.4-10.4); PLATELET 325 x1000/uL (130-400); RED BLOOD CELL COUNT 5.02 mill/uL (4.7-6.1); RED CELL DISTRIBUTION WIDTH 23.7 % (11.6-14.6)
[2019-07-11 13:39] LABS: CHLORIDE 108 mEq/L (98-107)
[2019-07-11 13:55] LABS: ATYPICAL LYMPHOCYTES 1; PLATELET ESTIMATE NORMAL
[2019-07-11 15:50] VITALS: BP 160/89
[2019-07-11 16:09] LABS: CLARITY URINE CLEAR (CLEAR); COLOR URINE YELLOW (YELLOW); KETONES URINE NEGATIVE (NEGATIVE); LEUKOCYTE ESTERASE URINE NEGATIVE (NEGATIVE); NITRITE URINE NEGATIVE (NEGATIVE); OCCULT BLOOD URINE NEGATIVE (NEGATIVE); PH URINE 5.5 (4.5-8.0); PROTEIN URINE TRACE (NEGATIVE); SPECIFIC GRAVITY URINE 1.017 (1.005-1.030); UROBILINOGEN URINE 0.2 E.U./dL (0.2-1.0)
== END 2019-07-11 16:20 | disposition home or self-care (01) ==
LOC: ER 12:35
DX: R10.30 Lower abdominal pain, unspecified (principal); I11.0 Hypertensive heart disease with heart failure; I50.9 Heart failure, unspecified; J44.9 Chronic obstructive pulmonary disease, unspecified; Z98.890 Other specified postprocedural states; Z79.899 Other long term (current) drug therapy
CPT/HCPCS: 36415; 71045; 80053; 81003; 85025; 93005; 99284

== ENCOUNTER 2019-07-28 12:20 | Emergency (ER) | payer MEDICAID ==
[~2019-07-28] VITALS: Ht 188 cm; Wt 127.0 kg
[2019-07-28 18:48] LABS: HEMATOCRIT. 38.1 % (42.0-52.0); HEMOGLOBIN. 12.3 g/dL (14.0-18.0); MEAN CORPUSCULAR HEMOGLOBIN 23.1 pg (28.0-32.0); MEAN CORPUSCULAR VOLUME 71.6 fL (80.0-94.0); MEAN PLATELET VOLUME 9.4 fl (7.4-10.4); PLATELET 352 x1000/uL (130-400); RED BLOOD CELL COUNT 5.32 mill/uL (4.7-6.1); RED CELL DISTRIBUTION WIDTH 23.2 % (11.6-14.6)
[2019-07-28 18:52] LABS: CHLORIDE 106 mEq/L (98-107)
[2019-07-28 19:13] LABS: PLATELET ESTIMATE NORMAL
[2019-07-28] MEDS ORDERED: KETOROLAC 60MG/2ML VIAL IM ONE (19:30)
[2019-07-28 19:38] VITALS: BP 124/79
== END 2019-07-28 21:10 | disposition home or self-care (01) ==
LOC: ER 12:20
DX: M25.511 Pain in right shoulder (principal); R07.89 Other chest pain; R00.0 Tachycardia, unspecified
CPT/HCPCS: 36415; 71045; 73030; 80053; 83880; 84484; 85025; 93005; 96372; 99284; J1885

== ENCOUNTER 2019-08-14 10:17 | Inpatient (IN) | payer MEDICAID ==
[~2019-08-14] VITALS: Ht 177.8 cm; Wt 93.4 kg
[2019-08-14] MEDS ORDERED: SODIUM CHLORIDE 0.9% 1,000 ML IV ONE (10:38)
[2019-08-14] MEDS ORDERED: PANTOPRAZOLE SODIUM 40 MG/VIAL IV STA (10:38)
[2019-08-14] MEDS ORDERED: ONDANSETRON HCL 4MG/2ML INJ IV STA (10:38)
[2019-08-14] MEDS ORDERED: MORPHINE SULFATE 4 MG/ML CPJ (NOT FOR IM USE) IV STA (10:38)
[2019-08-14 11:43] LABS: CHLORIDE 110 mEq/L (98-107)
[2019-08-14 11:44] LABS: PROTHROMBIN TIME 10.1 sec (9.6-11.0)
[2019-08-14 12:00] LABS: BASOPHILS % 0.2 % (0.0-2.0); EOSINOPHILS % 0.4 % (0.0-5.0); LYMPHOCYTES % 18.2 % (20.0-50.0); MEAN CORPUSCULAR HEMOGLOBIN 23.5 pg (28.0-32.0); MEAN CORPUSCULAR VOLUME 76.1 fL (80.0-94.0); MONOCYTES % 7.1 % (2.0-8.0); NEUTROPHILS % 74.1 % (40.0-76.0); PLATELET 425 x1000/uL (130-400); RED BLOOD CELL COUNT 1.95 mill/uL (4.7-6.1)
[2019-08-14 12:06] LABS: HEMATOCRIT. 14.9 % (42.0-52.0)
[2019-08-14 12:07] LABS: HEMOGLOBIN. 4.6 g/dL (14.0-18.0)
[2019-08-14] MEDS ORDERED: PANTOPRAZOLE 80 MG in SODIUM CHLORIDE 0.9% 100 ML IV STA (12:14)
[2019-08-14] MEDS ORDERED: PANTOPRAZOLE SODIUM 40 MG/VIAL IV ONE (12:15)
[2019-08-14 12:43] LABS: PLATELET ESTIMATE SLIGHTLY INCREASED
[2019-08-14] MEDS ORDERED: SODIUM BICARBONATE 4% (2.4MEQ) 5ML VIAL IV ONE (13:47)
[2019-08-14] MEDS ORDERED: LIDOCAINE HCL 1% 20ML VIAL (Pyxis) INJ ONE (13:47)
[2019-08-14 15:40] LABS: CLARITY URINE CLEAR (CLEAR); COLOR URINE YELLOW (YELLOW); KETONES URINE NEGATIVE (NEGATIVE); LEUKOCYTE ESTERASE URINE NEGATIVE (NEGATIVE); NITRITE URINE NEGATIVE (NEGATIVE); OCCULT BLOOD URINE NEGATIVE (NEGATIVE); PH URINE 5.5 (4.5-8.0); PROTEIN URINE NEGATIVE (NEGATIVE); SPECIFIC GRAVITY URINE 1.013 (1.005-1.030)
[2019-08-14] MEDS ORDERED: PIPERACILLIN/TAZ 3.375G PREMIX 50 ML IV ONE (16:00)
[2019-08-14] MEDS ORDERED: PANTOPRAZOLE SODIUM 40 MG/VIAL IV SCH (17:00)
[2019-08-14] MEDS ORDERED: DIATR MEGLU/DIATRIZOATE SOLN 30ML PO ONE (17:45)
[2019-08-14] MEDS: MORPHINE SULFATE 4 MG/ML CPJ (NOT FOR IM USE) IV PRN (20:11)
[2019-08-14] MEDS ORDERED: ONDANSETRON HCL 4MG/2ML INJ IV PRN ×2 (20:45→21:00)
[2019-08-14] MEDS ORDERED: IPRATROPIUM/ALBUTEROL 0.5-3(2.5)MG/3ML NEB HHN PRN ×2 (20:45→21:00)
[2019-08-14] MEDS ORDERED: ACETAMINOPHEN 650MG SUPP PR PRN (20:45)
[2019-08-14] MEDS ORDERED: LABETALOL 5MG/ML SYR 20 MG/4 ML SYRINGE IV PRN (20:45)
[2019-08-14 22:52] LABS: TOTAL IRON BINDING CAPACITY 378 ug/dL (250-450)
[2019-08-14 23:02] LABS: *AMPHETAMINES SCREEN URINE NEGATIVE (NEGATIVE); *BARBITURATES SCREEN URINE NEGATIVE (NEGATIVE); *BENZODIAZEPINES SCREEN URINE NEGATIVE (NEGATIVE); *COCAINE SCREEN URINE PRESUMTIVE POSITIVE (NEGATIVE); METHADONE URINE SCREEN NEGATIVE (NEGATIVE); OPIATES URINE SCREEN PRESUMTIVE POSITIVE (NEGATIVE); PHENCYCLIDINE URINE SCREEN NEGATIVE (NEGATIVE)
[2019-08-14 23:03] LABS: CANNABINOID URINE SCREEN NEGATIVE (NEGATIVE)
[2019-08-14] MEDS ORDERED: IOHEXOL-300 100 ML BOTTLE ONE (23:10)
[2019-08-14] MEDS ORDERED: SODIUM CHLORIDE 0.9% 1,000 ML IV SCH (23:30)
[2019-08-14] MEDS ORDERED: CEFTRIAXONE 1 G PREMIX 50 ML IV SCH (23:30)
[2019-08-14] MEDS ORDERED: PIPERACILLIN/TAZ 3.375G PREMIX 50 ML IV NR (23:34)
[2019-08-14 23:55] LABS: BASOPHILS % 0.9 % (0.0-2.0); EOSINOPHILS % 0.6 % (0.0-5.0); HEMATOCRIT. 22.5 % (42.0-52.0); HEMOGLOBIN. 7.3 g/dL (14.0-18.0); LYMPHOCYTES % 10.9 % (20.0-50.0); MEAN CORPUSCULAR HEMOGLOBIN 26.1 pg (28.0-32.0); MEAN CORPUSCULAR VOLUME 80.4 fL (80.0-94.0); MEAN PLATELET VOLUME 8.1 fl (7.4-10.4); MONOCYTES % 7.2 % (2.0-8.0); NEUTROPHILS % 80.4 % (40.0-76.0); PLATELET 375 x1000/uL (130-400); RED BLOOD CELL COUNT 2.79 mill/uL (4.7-6.1); RED CELL DISTRIBUTION WIDTH 19.9 % (11.6-14.6)
[2019-08-15] VITALS (21 sets, daily range): BP systolic 141–189; BP diastolic 62–139
[2019-08-15 02:01] LABS: FOLIC ACID (FOLATE) SERUM 13.3 ng/mL (>5.38)
[2019-08-15] MEDS: MORPHINE SULFATE 4 MG/ML CPJ (NOT FOR IM USE) IV PRN ×3 (02:26→11:31)
[2019-08-15] MEDS: LORAZEPAM 2MG/ML CPJ IV PRN ×3 (04:21→22:44)
[2019-08-15] MEDS: DEXT 5%/0.45% NACL 1000ML 1,000 ML IV SCH ×3 (05:14→20:20)
[2019-08-15 05:58] LABS: BASOPHILS % 0.7 % (0.0-2.0); EOSINOPHILS % 1.1 % (0.0-5.0); HEMATOCRIT. 28.7 % (42.0-52.0); HEMOGLOBIN. 9.5 g/dL (14.0-18.0); LYMPHOCYTES % 11.9 % (20.0-50.0); MEAN CORPUSCULAR HEMOGLOBIN 26.9 pg (28.0-32.0); MEAN CORPUSCULAR VOLUME 81.1 fL (80.0-94.0); MEAN PLATELET VOLUME 8.2 fl (7.4-10.4); MONOCYTES % 8.2 % (2.0-8.0); NEUTROPHILS % 78.1 % (40.0-76.0); PLATELET 387 x1000/uL (130-400); RED BLOOD CELL COUNT 3.54 mill/uL (4.7-6.1); RED CELL DISTRIBUTION WIDTH 19.3 % (11.6-14.6)
[2019-08-15] MEDS ORDERED: PIPERACILLIN/TAZ 3.375G PREMIX 50 ML IV NR (06:00)
[2019-08-15 06:20] LABS: CHLORIDE 113 mEq/L (98-107)
[2019-08-15] MEDS: PANTOPRAZOLE SODIUM 40 MG/VIAL IV SCH ×3 (09:00→20:39)
[2019-08-15] MEDS ORDERED: PIPERACILLIN/TAZOBACTAM 3.375 G in DEXT 5% WATER 100 ML IV SCH ×2 (12:00→12:15)
[2019-08-15] MEDS: HYDRALAZINE 20MG/ML VIAL IV PRN ×2 (12:44→20:52)
[2019-08-15] MEDS ORDERED: FOLIC ACID 1 MG, THIAMINE HCL 100 MG, MVI, ADULT NO.1 10 ML in DEXTROSE 5% WATER 1,000 ML IV ONE ×4 (15:30)
[2019-08-15] MEDS ORDERED: PROPOFOL 200MG/20ML VIAL IV ONE (16:10)
[2019-08-15] MEDS ORDERED: LIDOCAINE HCL/PF 1% 10 MG/ML 5ML VIAL ONE (16:11)
[2019-08-15] MEDS: PIPERACILLIN/TAZOBACTAM 3.375 G in DEXT 5% WATER 100 ML IV SCH (20:20)
[2019-08-15] MEDS: SUCRALFATE 1G TABLET PO SCH (20:40)
[2019-08-15] MEDS: AMLODIPINE 5MG TABLET PO SCH (20:42)
[2019-08-15] MEDS ORDERED: CEFTRIAXONE 1 G PREMIX 50 ML IV SCH (21:00)
[2019-08-15] MEDS ORDERED: SUCRALFATE 1 G/10 ML UDC PO SCH (21:00)
[2019-08-16] VITALS (44 sets, daily range): BP systolic 96–181; BP diastolic 35–102
[2019-08-16] MEDS: PIPERACILLIN/TAZOBACTAM 3.375 G in DEXT 5% WATER 100 ML IV SCH ×4 (01:30→21:59)
[2019-08-16] MEDS: LORAZEPAM 2MG/ML CPJ IV PRN (05:02)
[2019-08-16] MEDS: FERROUS SULFATE 325MG TABLET PO SCH ×2 (05:29→17:33)
[2019-08-16] MEDS: SUCRALFATE 1G TABLET PO SCH ×5 (05:30→21:59)
[2019-08-16 05:39] LABS: BASOPHILS % 0.3 % (0.0-2.0); EOSINOPHILS % 2.8 % (0.0-5.0); HEMATOCRIT. 22.6 % (42.0-52.0); HEMOGLOBIN. 7.7 g/dL (14.0-18.0); LYMPHOCYTES % 11.1 % (20.0-50.0); MEAN CORPUSCULAR HEMOGLOBIN 27.5 pg (28.0-32.0); MEAN CORPUSCULAR VOLUME 80.4 fL (80.0-94.0); MEAN PLATELET VOLUME 8.3 fl (7.4-10.4); MONOCYTES % 8.1 % (2.0-8.0); NEUTROPHILS % 77.7 % (40.0-76.0); PLATELET 341 x1000/uL (130-400); RED BLOOD CELL COUNT 2.81 mill/uL (4.7-6.1); RED CELL DISTRIBUTION WIDTH 19.6 % (11.6-14.6)
[2019-08-16 05:45] LABS: CHLORIDE 110 mEq/L (98-107)
[2019-08-16 05:52] LABS: PHOSPHORUS 2.7 mg/dL (2.5-4.9)
[2019-08-16] MEDS: LOSARTAN POTASSIUM 50 MG TABLET PO SCH (08:54)
[2019-08-16] MEDS: AMLODIPINE 5MG TABLET PO SCH ×2 (08:54→21:59)
[2019-08-16] MEDS: PANTOPRAZOLE SODIUM 40 MG/VIAL IV SCH ×2 (08:55→21:59)
[2019-08-16] MEDS: DEXT 5%/0.45% NACL 1000ML 1,000 ML IV SCH ×2 (11:00→22:02)
[2019-08-16] MEDS ORDERED: FOLIC ACID 1 MG, THIAMINE HCL 100 MG, MVI, ADULT NO.1 10 ML in DEXTROSE 5% WATER 1,000 ML IV SCH ×4 (20:00)
[2019-08-16] MEDS: FOLIC ACID 1 MG, THIAMINE HCL 100 MG, MVI, ADULT NO.1 10 ML in DEXTROSE 5% WATER 1,000 ML IV SCH ×4 (21:59)
[2019-08-16] MEDS: MORPHINE SULFATE 4 MG/ML CPJ (NOT FOR IM USE) IV PRN (22:06)
[2019-08-17] VITALS (16 sets, daily range): BP systolic 126–163; BP diastolic 51–93
[2019-08-17] MEDS: PIPERACILLIN/TAZOBACTAM 3.375 G in DEXT 5% WATER 100 ML IV SCH ×4 (03:09→16:54)
[2019-08-17] MEDS: FERROUS SULFATE 325MG TABLET PO SCH ×2 (06:34→16:49)
[2019-08-17] MEDS: DEXT 5%/0.45% NACL 1000ML 1,000 ML IV SCH ×2 (06:34→16:48)
[2019-08-17] MEDS: SUCRALFATE 1G TABLET PO SCH ×4 (06:36→20:35)
[2019-08-17] MEDS: PANTOPRAZOLE SODIUM 40 MG/VIAL IV SCH ×2 (08:44→20:35)
[2019-08-17] MEDS: LOSARTAN POTASSIUM 50 MG TABLET PO SCH (08:45)
[2019-08-17] MEDS: AMLODIPINE 5MG TABLET PO SCH ×2 (08:46→20:35)
[2019-08-17] MEDS: TAMSULOSIN HCL 0.4MG SR CAPSULE PO SCH (08:46)
[2019-08-17 13:17] LABS: HEMATOCRIT. 23.6 % (42.0-52.0); HEMOGLOBIN. 7.9 g/dL (14.0-18.0); MEAN CORPUSCULAR HEMOGLOBIN 26.9 pg (28.0-32.0); MEAN CORPUSCULAR VOLUME 80.9 fL (80.0-94.0); PLATELET 367 x1000/uL (130-400); RED BLOOD CELL COUNT 2.92 mill/uL (4.7-6.1); RED CELL DISTRIBUTION WIDTH 20.4 % (11.6-14.6)
[2019-08-17 13:22] LABS: CHLORIDE 109 mEq/L (98-107)
[2019-08-17 15:21] LABS: PLATELET ESTIMATE NORMAL
[2019-08-17] MEDS: MORPHINE SULFATE 4 MG/ML CPJ (NOT FOR IM USE) IV PRN (18:43)
[2019-08-17] MEDS: HYDROCODONE/ACETAMINOPHEN 5/325MG TABLET PO PRN (20:38)
[2019-08-18] VITALS (14 sets, daily range): BP systolic 130–155; BP diastolic 64–87
[2019-08-18] MEDS: DEXT 5%/0.45% NACL 1000ML 1,000 ML IV SCH ×3 (03:00→23:00)
[2019-08-18] MEDS: PIPERACILLIN/TAZOBACTAM 3.375 G in DEXT 5% WATER 100 ML IV SCH ×4 (03:02→21:18)
[2019-08-18] MEDS: FERROUS SULFATE 325MG TABLET PO SCH ×2 (06:01→18:46)
[2019-08-18] MEDS: SUCRALFATE 1G TABLET PO SCH ×4 (06:10→21:18)
[2019-08-18 07:46] LABS: MEAN CORPUSCULAR HEMOGLOBIN 27.6 pg (28.0-32.0); MEAN CORPUSCULAR VOLUME 82.2 fL (80.0-94.0); MEAN PLATELET VOLUME 8.1 fl (7.4-10.4); PLATELET 345 x1000/uL (130-400); RED BLOOD CELL COUNT 2.54 mill/uL (4.7-6.1); RED CELL DISTRIBUTION WIDTH 20.1 % (11.6-14.6)
[2019-08-18 07:58] LABS: CHLORIDE 109 mEq/L (98-107)
[2019-08-18 08:24] LABS: HEMATOCRIT. 20.9 % (42.0-52.0)
[2019-08-18] MEDS: PANTOPRAZOLE SODIUM 40 MG/VIAL IV SCH ×2 (09:12→21:18)
[2019-08-18] MEDS: TAMSULOSIN HCL 0.4MG SR CAPSULE PO SCH (09:13)
[2019-08-18] MEDS: AMLODIPINE 5MG TABLET PO SCH ×2 (09:13→21:19)
[2019-08-18] MEDS: LOSARTAN POTASSIUM 50 MG TABLET PO SCH (09:13)
[2019-08-18 18:03] LABS: PLATELET ESTIMATE NORMAL
[2019-08-18] MEDS: HYDROCODONE/ACETAMINOPHEN 5/325MG TABLET PO PRN (18:53)
[2019-08-18] MEDS: FOLIC ACID 1 MG, THIAMINE HCL 100 MG, MVI, ADULT NO.1 10 ML in DEXTROSE 5% WATER 1,000 ML IV SCH ×8 (20:00→21:17)
[2019-08-19] VITALS (7 sets, daily range): BP systolic 110–135; BP diastolic 65–71
[2019-08-19] MEDS: LORAZEPAM 2MG/ML CPJ IV PRN (00:48)
[2019-08-19] MEDS: PIPERACILLIN/TAZOBACTAM 3.375 G in DEXT 5% WATER 100 ML IV SCH ×4 (00:49→21:53)
[2019-08-19 01:09] LABS: HEMATOCRIT. 26.8 % (42.0-52.0); HEMOGLOBIN. 8.8 g/dL (14.0-18.0); MEAN CORPUSCULAR HEMOGLOBIN 26.8 pg (28.0-32.0); MEAN CORPUSCULAR VOLUME 82.2 fL (80.0-94.0); MEAN PLATELET VOLUME 8.3 fl (7.4-10.4); PLATELET 369 x1000/uL (130-400); RED BLOOD CELL COUNT 3.27 mill/uL (4.7-6.1); RED CELL DISTRIBUTION WIDTH 19.1 % (11.6-14.6)
[2019-08-19 01:14] LABS: INR 1.1
[2019-08-19] MEDS: SUCRALFATE 1G TABLET PO SCH ×4 (06:39→21:54)
[2019-08-19 07:26] LABS: HEMATOCRIT. 26.5 % (42.0-52.0); MEAN CORPUSCULAR HEMOGLOBIN 27.5 pg (28.0-32.0); MEAN CORPUSCULAR VOLUME 81.3 fL (80.0-94.0); MEAN PLATELET VOLUME 8.5 fl (7.4-10.4); PLATELET 361 x1000/uL (130-400); RED BLOOD CELL COUNT 3.26 mill/uL (4.7-6.1); RED CELL DISTRIBUTION WIDTH 19.2 % (11.6-14.6)
[2019-08-19 07:31] LABS: CHLORIDE 108 mEq/L (98-107)
[2019-08-19] MEDS: TAMSULOSIN HCL 0.4MG SR CAPSULE PO SCH (08:18)
[2019-08-19] MEDS: PANTOPRAZOLE SODIUM 40 MG/VIAL IV SCH ×2 (08:18→21:54)
[2019-08-19] MEDS: AMLODIPINE 5MG TABLET PO SCH ×2 (08:19→21:55)
[2019-08-19] MEDS: LOSARTAN POTASSIUM 50 MG TABLET PO SCH (08:19)
[2019-08-19] MEDS: FERROUS SULFATE 325MG TABLET PO SCH ×2 (08:19→17:57)
[2019-08-19] MEDS: DEXT 5%/0.45% NACL 1000ML 1,000 ML IV SCH ×2 (08:21→17:57)
[2019-08-19 09:53] LABS: PLATELET ESTIMATE NORMAL
[2019-08-19 10:07] LABS: ATYPICAL LYMPHOCYTES 1
[2019-08-19 10:08] LABS: PLATELET ESTIMATE NORMAL
[2019-08-19] MEDS: FOLIC ACID 1 MG, THIAMINE HCL 100 MG, MVI, ADULT NO.1 10 ML in DEXTROSE 5% WATER 1,000 ML IV SCH ×4 (21:53)
[2019-08-19] MEDS: HYDROCODONE/ACETAMINOPHEN 5/325MG TABLET PO PRN (22:45)
[2019-08-20] MEDS: PIPERACILLIN/TAZOBACTAM 3.375 G in DEXT 5% WATER 100 ML IV SCH ×2 (00:54→08:53)
[2019-08-20 04:00] VITALS: BP 123/69
[2019-08-20] MEDS: SUCRALFATE 1G TABLET PO SCH ×2 (06:32→11:58)
[2019-08-20] MEDS: DEXT 5%/0.45% NACL 1000ML 1,000 ML IV SCH (06:33)
[2019-08-20 08:00] VITALS: BP 115/60
[2019-08-20] MEDS: LOSARTAN POTASSIUM 50 MG TABLET PO SCH (08:53)
[2019-08-20] MEDS: AMLODIPINE 5MG TABLET PO SCH (08:53)
[2019-08-20] MEDS: TAMSULOSIN HCL 0.4MG SR CAPSULE PO SCH (08:54)
[2019-08-20] MEDS: PANTOPRAZOLE SODIUM 40 MG/VIAL IV SCH (08:55)
[2019-08-20] MEDS: FERROUS SULFATE 325MG TABLET PO SCH (08:58)
[2019-08-20] MEDS ORDERED: LOSA50TA3 PO (11:55)
[2019-08-20] MEDS ORDERED: SUCR1TAB30 PO (11:55)
[2019-08-20] MEDS ORDERED: TAMS-11 PO (11:55)
[2019-08-20 12:00] VITALS: BP 121/57
[2019-08-20 12:36] VITALS: BP 121/57
== END 2019-08-20 16:30 | disposition home or self-care (01) | DRG 720 ==
LOC: ER 10:17 → EDBEDREQ 12:37 → CANRESERV 15:00 → ENRESERV 15:00 → MICUSO 08-15 12:34 → ENRESERV 08-15 17:25 → 3WST 08-16 16:31 → 6WST 08-18 10:31
PROVIDERS: ADMIT Internal Medicine; ATTEND Internal Medicine
PROC: 30233N1 Transfusion of Nonautologous Red Blood Cells into Peripheral Vein, Percutaneous Approach (ICD-10-PCS; 2019-08-14)
PROC: 02HV33Z Insertion of Infusion Device into Superior Vena Cava, Percutaneous Approach (ICD-10-PCS; 2019-08-14)
PROC: B548ZZA Ultrasonography of Superior Vena Cava, Guidance (ICD-10-PCS; 2019-08-14)
PROC: B5181ZA Fluoroscopy of Superior Vena Cava using Low Osmolar Contrast, Guidance (ICD-10-PCS; 2019-08-14)
PROC: 0DB68ZX Excision of Stomach, Via Natural or Artificial Opening Endoscopic, Diagnostic (ICD-10-PCS; principal; 2019-08-15)
DX: A41.9 Sepsis, unspecified organism (principal); E43 Unspecified severe protein-calorie malnutrition; K26.5 Chronic or unspecified duodenal ulcer with perforation; K22.6 Gastro-esophageal laceration-hemorrhage syndrome; E87.8 Other disorders of electrolyte and fluid balance, not elsewhere classified; F10.10 Alcohol abuse, uncomplicated; D50.9 Iron deficiency anemia, unspecified; I50.32 Chronic diastolic (congestive) heart failure; I11.0 Hypertensive heart disease with heart failure; B19.20 Unspecified viral hepatitis C without hepatic coma; J44.9 Chronic obstructive pulmonary disease, unspecified; N40.0 Benign prostatic hyperplasia without lower urinary tract symptoms; F17.210 Nicotine dependence, cigarettes, uncomplicated; K70.30 Alcoholic cirrhosis of liver without ascites; E78.00 Pure hypercholesterolemia, unspecified; I25.10 Atherosclerotic heart disease of native coronary artery without angina pectoris; K52.9 Noninfective gastroenteritis and colitis, unspecified; K29.60 Other gastritis without bleeding; K29.80 Duodenitis without bleeding; Z79.899 Other long term (current) drug therapy; Z68.29 Body mass index [BMI] 29.0-29.9, adult; K25.9 Gastric ulcer, unspecified as acute or chronic, without hemorrhage or perforation
CPT/HCPCS: 36415; 36573; 71045; 74176; 74177; 76700; 76937; 80048; 80053; 80076; 80305; 81003; 82270; 82607; 82728; 82746; 83540; 83550; 83735; 84100; 84484; 85025; 85384; 86677; 86850; 86900; 86920; 88305; 88313; 93005; 93971; 99291; C1725; C9113; J0360; J0696; J2060; J2270; J2405; J2543; J2704; J3411; J3490; J7030; J7040; J7050; J7060; J7070; P9016; P9021; Q9963; Q9967

== ENCOUNTER 2019-08-28 00:38 | Emergency (ER) | payer MEDICAID ==
[~2019-08-28] VITALS: Ht 188 cm; Wt 87.0 kg
[~2019-08-28 00:38] MED LIST changes: -LISI-186 PO; +LOSA50TA3 PO; +SUCR1TAB30 PO; +TAMS-11 PO
[2019-08-28] MEDS ORDERED: ONDANSETRON HCL 4MG/2ML INJ IV STA (05:02)
[2019-08-28] MEDS ORDERED: MORPHINE SULFATE 4 MG/ML CPJ (NOT FOR IM USE) IV STA (05:02)
[2019-08-28] MEDS ORDERED: PANTOPRAZOLE SODIUM 40 MG/VIAL IV STA (05:02)
[2019-08-28 05:42] LABS: HEMATOCRIT. 33.3 % (42.0-52.0); HEMOGLOBIN. 10.9 g/dL (14.0-18.0); MEAN CORPUSCULAR HEMOGLOBIN 26.2 pg (28.0-32.0); MEAN CORPUSCULAR VOLUME 80.2 fL (80.0-94.0); MEAN PLATELET VOLUME 8.4 fl (7.4-10.4); PLATELET 349 x1000/uL (130-400); RED BLOOD CELL COUNT 4.16 mill/uL (4.7-6.1); RED CELL DISTRIBUTION WIDTH 19.7 % (11.6-14.6)
[2019-08-28 05:58] LABS: CHLORIDE 104 mEq/L (98-107)
[2019-08-28 06:23] LABS: CLARITY URINE CLEAR (CLEAR); COLOR URINE YELLOW (YELLOW); KETONES URINE NEGATIVE (NEGATIVE); LEUKOCYTE ESTERASE URINE NEGATIVE (NEGATIVE); NITRITE URINE NEGATIVE (NEGATIVE); OCCULT BLOOD URINE NEGATIVE (NEGATIVE); PROTEIN URINE TRACE (NEGATIVE); SPECIFIC GRAVITY URINE 1.011 (1.005-1.030)
[2019-08-28] MEDS ORDERED: CLONIDINE 0.1MG TABLET PO ONE (07:00)
[2019-08-28 07:32] LABS: PLATELET ESTIMATE NORMAL
[2019-08-28 09:30] VITALS: BP 142/88
== END 2019-08-28 09:45 | disposition home or self-care (01) ==
LOC: ER 00:38
DX: R10.32 Left lower quadrant pain (principal); K27.9 Peptic ulcer, site unspecified, unspecified as acute or chronic, without hemorrhage or perforation; K21.9 Gastro-esophageal reflux disease without esophagitis; I10 Essential (primary) hypertension; I25.10 Atherosclerotic heart disease of native coronary artery without angina pectoris; J44.9 Chronic obstructive pulmonary disease, unspecified
CPT/HCPCS: 36415; 80053; 81003; 83690; 85025; 96374; 96375; 99285; C9113; J2270; J2405

== ENCOUNTER 2019-12-01 12:10 | Inpatient (IN) | payer MEDICAID ==
[~2019-12-01] VITALS: Ht 190.5 cm; Wt 92.5 kg
[~2019-12-01 12:10] MED LIST changes: +LIDOCAINE HCL/PF 1% 2ML VIAL ONE
[2019-12-01] MEDS ORDERED: FUROSEMIDE 40MG/4ML VIAL IVP ONE (13:00)
[2019-12-01 13:31] LABS: HEMATOCRIT. 31.3 % (42.0-52.0); HEMOGLOBIN. 9.8 g/dL (14.0-18.0); MEAN CORPUSCULAR HEMOGLOBIN 21.5 pg (28.0-32.0); MEAN CORPUSCULAR VOLUME 68.7 fL (80.0-94.0); MEAN PLATELET VOLUME 9.1 fl (7.4-10.4); PLATELET 262 x1000/uL (130-400); RED BLOOD CELL COUNT 4.55 mill/uL (4.7-6.1); RED CELL DISTRIBUTION WIDTH 21.4 % (11.6-14.6)
[2019-12-01 13:38] LABS: INR 1.3; PARTIAL THROMBOPLASTIN TIME 38.4 sec (23.4-31.0); PROTHROMBIN TIME 13.6 sec (9.6-11.0)
[2019-12-01 13:42] LABS: CHLORIDE 96 mEq/L (98-107)
[2019-12-01 13:45] LABS: ETHANOL BLOOD < 10 mg/dL
[2019-12-01 13:57] LABS: BG BASE EXCESS -4.5 mmol/L (-2.0-2.0); BG CARBOXYHEMOGLOBIN 1.8 % (0.5-1.5); BG DEOXYHEMOGLOBIN 3.1 % (0.0-5.0); BG FRACTION INSPIRED OXYGEN 36; BG HCO3 ACT 25.3 mmol/L (22.0-26.0); BG METHEMOGLOBIN 0.3 % (0.0-1.5); BG OXYGEN SATURATION 96.8 % (92.0-98.5); BG OXYHEMOGLOBIN 94.8 % (94.0-97.0); BG PH 7.151 (7.350-7.450); BG PO2 111.4 mmHg (75.0-100.0); BG SAMPLE SITE RIGHT RADIAL; BG TOTAL HEMOGLOBIN 10.6 g/dL (12.0-18.0); BG VENT MODE NASAL CANNULA
[2019-12-01 14:02] LABS: NUCLEATED RED BLOOD CELLS 1 /100 WBC; PLATELET ESTIMATE NORMAL
[2019-12-01 15:07] LABS: CLARITY URINE CLOUDY (CLEAR); COLOR URINE DARK YELLOW (YELLOW); KETONES URINE TRACE (NEGATIVE); LEUKOCYTE ESTERASE URINE 1+ (NEGATIVE); NITRITE URINE NEGATIVE (NEGATIVE); OCCULT BLOOD URINE NEGATIVE (NEGATIVE); PROTEIN URINE 2+ (NEGATIVE); SPECIFIC GRAVITY URINE 1.017 (1.005-1.030)
[2019-12-01 15:33] LABS: BG BASE EXCESS -3.9 mmol/L (-2.0-2.0); BG DEOXYHEMOGLOBIN 0.6 % (0.0-5.0); BG FRACTION INSPIRED OXYGEN 40; BG METHEMOGLOBIN 0.2 % (0.0-1.5); BG OXYGEN SATURATION 99.4 % (92.0-98.5); BG OXYHEMOGLOBIN 97.2 % (94.0-97.0); BG PCO2 76.4 mmHg (35.0-45.0); BG PH 7.149 (7.350-7.450); BG PO2 210.4 mmHg (75.0-100.0); BG SAMPLE SITE RIGHT RADIAL; BG TOTAL HEMOGLOBIN 10.6 g/dL (12.0-18.0); BG VENT MODE NASAL CANNULA
[2019-12-01] MEDS ORDERED: PROPOFOL 10MG/ML 100ML 100 ML IV ONE (15:45)
[2019-12-01] MEDS ORDERED: VECURONIUM BROMIDE 10 MG/VIAL IV ONE ×2 (15:45→16:11)
[2019-12-01] MEDS ORDERED: ETOMIDATE 2MG/ML 10ML VIAL IV ONE ×2 (15:45→16:11)
[2019-12-01] MEDS ORDERED: ACETAMINOPHEN 325MG TABLET PO PRN (17:00)
[2019-12-01] MEDS ORDERED: ONDANSETRON HCL 4MG/2ML INJ IV PRN (17:00)
[2019-12-01 17:22] LABS: BG BASE EXCESS -3.1 mmol/L (-2.0-2.0); BG CARBOXYHEMOGLOBIN 1.2 % (0.5-1.5); BG FRACTION INSPIRED OXYGEN 60; BG HCO3 ACT 23.2 mmol/L (22.0-26.0); BG METHEMOGLOBIN 0.4 % (0.0-1.5); BG OXYGEN SATURATION 93.9 % (92.0-98.5); BG OXYHEMOGLOBIN 92.4 % (94.0-97.0); BG PCO2 46.8 mmHg (35.0-45.0); BG PH 7.313 (7.350-7.450); BG PO2 72.2 mmHg (75.0-100.0); BG SAMPLE SITE RIGHT RADIAL; BG TIDAL VOLUME(mL) 550 mL; BG TOTAL HEMOGLOBIN 10.5 g/dL (12.0-18.0); BG VENT MODE VENT - A/C; BG VENT RATE 20 set
[2019-12-01] MEDS ORDERED: SODIUM POLYSTYRENE SULFONATE 15 G/60 ML BOT NG NR (17:25)
[2019-12-01] MEDS ORDERED: SODIUM BICARBONATE 8.4% 1 MEQ/ML 50ML SYR IV NR (17:25)
[2019-12-01] MEDS ORDERED: PHENYLEPHRINE 10 MG in DEXT 5% WATER 249 ML IV PRN ×2 (18:00→19:30)
[2019-12-01] MEDS ORDERED: MIDAZOLAM HCL 50 MG in DEXTROSE 5% WATER 40 ML IV ONE ×4 (19:30)
[2019-12-01] MEDS ORDERED: NOREPINEPHRINE 4MG/250ML PMX 250 ML IV ONE (20:00)
[2019-12-02] VITALS (41 sets, daily range): BP systolic 135–169; BP diastolic 71–118
[2019-12-02 04:10] LABS: HEMATOCRIT. 29.2 % (42.0-52.0); HEMOGLOBIN. 9.2 g/dL (14.0-18.0); MEAN CORPUSCULAR HEMOGLOBIN 21.4 pg (28.0-32.0); MEAN CORPUSCULAR VOLUME 67.5 fL (80.0-94.0); MEAN PLATELET VOLUME 8.9 fl (7.4-10.4); PLATELET 204 x1000/uL (130-400); RED BLOOD CELL COUNT 4.32 mill/uL (4.7-6.1); RED CELL DISTRIBUTION WIDTH 20.8 % (11.6-14.6)
[2019-12-02 04:16] LABS: CHLORIDE 99 mEq/L (98-107)
[2019-12-02] MEDS ORDERED: ASPIRIN 81MG TABLET NG SCH (05:30)
[2019-12-02] MEDS ORDERED: FUROSEMIDE 40MG/4ML VIAL IV NR (05:30)
[2019-12-02 05:37] LABS: PLATELET ESTIMATE NORMAL
[2019-12-02] MEDS ORDERED: HEPARIN 5000 UNITS/ML VIAL SUBCUT SCH (05:45)
[2019-12-02 09:12] LABS: BG BASE EXCESS 1.3 mmol/L (-2.0-2.0); BG CARBOXYHEMOGLOBIN 0.8 % (0.5-1.5); BG DEOXYHEMOGLOBIN 5.2 % (0.0-5.0); BG FRACTION INSPIRED OXYGEN 70; BG HCO3 ACT 25.7 mmol/L (22.0-26.0); BG METHEMOGLOBIN 0.3 % (0.0-1.5); BG OXYGEN SATURATION 94.7 % (92.0-98.5); BG OXYHEMOGLOBIN 93.7 % (94.0-97.0); BG PH 7.426 (7.350-7.450); BG PO2 78.6 mmHg (75.0-100.0); BG SAMPLE SITE RIGHT RADIAL; BG TIDAL VOLUME(mL) 550 mL; BG TOTAL HEMOGLOBIN 9.5 g/dL (12.0-18.0); BG VENT MODE VENT - A/C; BG VENT RATE 18 set
[2019-12-02] MEDS: CARVEDILOL 3.125 MG TABLET NG SCH ×2 (12:04→21:03)
[2019-12-02 12:11] LABS: *AMPHETAMINES SCREEN URINE NEGATIVE (NEGATIVE); *BARBITURATES SCREEN URINE NEGATIVE (NEGATIVE); *BENZODIAZEPINES SCREEN URINE PRESUMTIVE POSITIVE (NEGATIVE)
[2019-12-02 12:12] LABS: *COCAINE SCREEN URINE PRESUMTIVE POSITIVE (NEGATIVE); CANNABINOID URINE SCREEN NEGATIVE (NEGATIVE); METHADONE URINE SCREEN NEGATIVE (NEGATIVE); OPIATES URINE SCREEN NEGATIVE (NEGATIVE); PHENCYCLIDINE URINE SCREEN NEGATIVE (NEGATIVE)
[2019-12-02] MEDS ORDERED: MIDAZOLAM HCL 50 MG in DEXTROSE 5% WATER 40 ML IV PRN (13:30)
[2019-12-02] MEDS ORDERED: FENTANYL CITRATE/PF 500 MCG in SODIUM CHLORIDE 0.9% 40 ML IV PRN (13:30)
[2019-12-02] MEDS ORDERED: FENTANYL CITRATE/PF 1,000 MCG in SODIUM CHLORIDE 0.9% 90 ML IV PRN (14:15)
[2019-12-02] MEDS ORDERED: FENTANYL CITRATE/PF 1,000 MCG in SODIUM CHLORIDE 0.9% 80 ML IV PRN (14:15)
[2019-12-02] MEDS: MIDAZOLAM HCL 100 MG in DEXT 5% WATER 80 ML IV PRN (14:42)
[2019-12-02] MEDS: FENTANYL CITRATE/PF 1,000 MCG in SODIUM CHLORIDE 0.9% 80 ML IV PRN (14:43)
[2019-12-02] MEDS ORDERED: ALBUTEROL 6.7GM HFA INHALER ORI PRN (15:00)
[2019-12-02] MEDS: IPRATROPIUM/ALBUTEROL 0.5-3(2.5)MG/3ML NEB HHN SCH ×2 (15:43→20:15)
[2019-12-02] MEDS: ACETYLCYSTEINE 100MG/ML 10% VIAL 4ML INH SCH ×2 (15:43→20:15)
[2019-12-02] MEDS: METHYLPREDNISOLONE SOD SUCC 40 MG/ML VIAL IV SCH ×2 (16:06→21:03)
[2019-12-02] MEDS: FUROSEMIDE 40MG/4ML VIAL IV SCH (16:59)
[2019-12-02] MEDS: PIPERACILLIN/TAZOBACTAM 2.25 G in DEXTROSE 5% WATER 50 ML IV SCH (17:07)
[2019-12-02] MEDS: FAMOTIDINE 20MG/2ML VIAL IV SCH (21:03)
[2019-12-02] MEDS: HEPARIN 5000 UNITS/ML VIAL SUBCUT SCH (21:04)
[2019-12-03] VITALS (86 sets, daily range): BP systolic 98–162; BP diastolic 57–96
[2019-12-03] MEDS: PIPERACILLIN/TAZOBACTAM 2.25 G in DEXTROSE 5% WATER 50 ML IV SCH ×3 (01:37→18:19)
[2019-12-03] MEDS: MIDAZOLAM HCL 100 MG in DEXT 5% WATER 80 ML IV PRN ×2 (02:29→14:17)
[2019-12-03] MEDS: HYDRALAZINE 20MG/ML VIAL IV PRN (02:33)
[2019-12-03] MEDS: METHYLPREDNISOLONE SOD SUCC 40 MG/ML VIAL IV SCH ×3 (05:01→21:19)
[2019-12-03 05:59] LABS: BASOPHILS % 0.8 % (0.0-2.0); HEMATOCRIT. 27.6 % (42.0-52.0); LYMPHOCYTES % 9.3 % (20.0-50.0); MEAN CORPUSCULAR HEMOGLOBIN 21.3 pg (28.0-32.0); MEAN CORPUSCULAR VOLUME 65.4 fL (80.0-94.0); MEAN PLATELET VOLUME 9.4 fl (7.4-10.4); MONOCYTES % 9.9 % (2.0-8.0); PLATELET 204 x1000/uL (130-400); RED BLOOD CELL COUNT 4.21 mill/uL (4.7-6.1)
[2019-12-03 06:06] LABS: CHLORIDE 103 mEq/L (98-107)
[2019-12-03 08:55] LABS: BG BASE EXCESS 2.9 mmol/L (-2.0-2.0); BG CARBOXYHEMOGLOBIN 0.4 % (0.5-1.5); BG FRACTION INSPIRED OXYGEN 5; BG HCO3 ACT 25.5 mmol/L (22.0-26.0); BG METHEMOGLOBIN 0.3 % (0.0-1.5); BG OXYHEMOGLOBIN 96.3 % (94.0-97.0); BG PO2 96.8 mmHg (75.0-100.0); BG SAMPLE SITE RIGHT RADIAL; BG TIDAL VOLUME(mL) 550 mL; BG TOTAL HEMOGLOBIN 9.8 g/dL (12.0-18.0); BG VENT MODE VENT - A/C; BG VENT RATE 18 set
[2019-12-03] MEDS: ASPIRIN 81MG TABLET NG SCH (09:04)
[2019-12-03] MEDS: FUROSEMIDE 40MG/4ML VIAL IV SCH ×2 (09:05→17:06)
[2019-12-03] MEDS: CARVEDILOL 3.125 MG TABLET NG SCH ×2 (09:05→21:00)
[2019-12-03] MEDS: HEPARIN 5000 UNITS/ML VIAL SUBCUT SCH ×2 (09:05→21:19)
[2019-12-03] MEDS ORDERED: POTASSIUM CHLORIDE 20MEQ/PACKET PO SCH (09:15)
[2019-12-03] MEDS ORDERED: IPRATROPIUM/ALBUTEROL 0.5-3(2.5)MG/3ML NEB HHN PRN (10:30)
[2019-12-03] MEDS: IPRATROPIUM/ALBUTEROL 0.5-3(2.5)MG/3ML NEB HHN SCH (20:30)
[2019-12-03] MEDS: FAMOTIDINE 20MG/2ML VIAL IV SCH (21:19)
[2019-12-03] MEDS: FENTANYL CITRATE/PF 1,000 MCG in SODIUM CHLORIDE 0.9% 80 ML IV PRN (22:58)
[2019-12-04] VITALS (75 sets, daily range): BP systolic 87–179; BP diastolic 49–105
[2019-12-04] MEDS: IPRATROPIUM/ALBUTEROL 0.5-3(2.5)MG/3ML NEB HHN SCH ×3 (02:04→20:50)
[2019-12-04] MEDS: PIPERACILLIN/TAZOBACTAM 2.25 G in DEXTROSE 5% WATER 50 ML IV SCH ×3 (02:20→16:36)
[2019-12-04] MEDS: METHYLPREDNISOLONE SOD SUCC 40 MG/ML VIAL IV SCH ×3 (05:31→20:22)
[2019-12-04 05:40] LABS: HEMATOCRIT. 29.4 % (42.0-52.0); HEMOGLOBIN. 9.5 g/dL (14.0-18.0); MEAN CORPUSCULAR HEMOGLOBIN 21.1 pg (28.0-32.0); MEAN CORPUSCULAR VOLUME 65.2 fL (80.0-94.0); MEAN PLATELET VOLUME 9.4 fl (7.4-10.4); PLATELET 228 x1000/uL (130-400); RED BLOOD CELL COUNT 4.51 mill/uL (4.7-6.1); RED CELL DISTRIBUTION WIDTH 20.7 % (11.6-14.6)
[2019-12-04 05:50] LABS: CHLORIDE 105 mEq/L (98-107)
[2019-12-04 07:12] LABS: PLATELET ESTIMATE NORMAL
[2019-12-04] MEDS: FUROSEMIDE 40MG/4ML VIAL IV SCH ×2 (08:39→16:36)
[2019-12-04] MEDS: CARVEDILOL 3.125 MG TABLET NG SCH ×2 (08:40→20:24)
[2019-12-04] MEDS: ASPIRIN 81MG TABLET NG SCH (08:40)
[2019-12-04] MEDS: HEPARIN 5000 UNITS/ML VIAL SUBCUT SCH ×2 (08:40→20:22)
[2019-12-04 09:23] LABS: BG BASE EXCESS 5.6 mmol/L (-2.0-2.0); BG CARBOXYHEMOGLOBIN 0.7 % (0.5-1.5); BG DEOXYHEMOGLOBIN 6.5 % (0.0-5.0); BG FRACTION INSPIRED OXYGEN 40; BG HCO3 ACT 30.2 mmol/L (22.0-26.0); BG METHEMOGLOBIN 0.2 % (0.0-1.5); BG OXYGEN SATURATION 93.4 % (92.0-98.5); BG OXYHEMOGLOBIN 92.6 % (94.0-97.0); BG PCO2 44.4 mmHg (35.0-45.0); BG PH 7.451 (7.350-7.450); BG PO2 74.9 mmHg (75.0-100.0); BG SAMPLE SITE RIGHT RADIAL; BG TIDAL VOLUME(mL) 550 mL; BG TOTAL HEMOGLOBIN 10.4 g/dL (12.0-18.0); BG VENT MODE VENT - A/C; BG VENT RATE 14 set
[2019-12-04] MEDS ORDERED: DOXYCYCLINE 100 MG in DEXT 5% WATER 100 ML IV SCH (11:45)
[2019-12-04] MEDS ORDERED: POTASSIUM CHLORIDE 20MEQ/PACKET PO SCH (12:00)
[2019-12-04] MEDS: DOXYCYCLINE HYCLATE 100MG CAPSULE PO SCH ×2 (14:16→20:23)
[2019-12-04] MEDS: MIDODRINE HCL 2.5MG TABLET PEG SCH (16:36)
[2019-12-04] MEDS: MIDAZOLAM HCL 100 MG in DEXT 5% WATER 80 ML IV PRN (16:37)
[2019-12-04] MEDS: FAMOTIDINE 20MG/2ML VIAL IV SCH (20:22)
[2019-12-04] MEDS: FENTANYL CITRATE/PF 1,000 MCG in SODIUM CHLORIDE 0.9% 80 ML IV PRN (21:18)
[2019-12-05] VITALS (61 sets, daily range): BP systolic 98–183; BP diastolic 53–111
[2019-12-05] MEDS: HYDRALAZINE 20MG/ML VIAL IV PRN (00:22)
[2019-12-05] MEDS: IPRATROPIUM/ALBUTEROL 0.5-3(2.5)MG/3ML NEB HHN SCH ×4 (02:05→21:56)
[2019-12-05] MEDS: PIPERACILLIN/TAZOBACTAM 2.25 G in DEXTROSE 5% WATER 50 ML IV SCH ×3 (02:13→17:43)
[2019-12-05] MEDS: MIDAZOLAM HCL 100 MG in DEXT 5% WATER 80 ML IV PRN ×2 (03:44→14:21)
[2019-12-05 05:46] LABS: HEMATOCRIT. 30.3 % (42.0-52.0); HEMOGLOBIN. 9.7 g/dL (14.0-18.0); MEAN CORPUSCULAR HEMOGLOBIN 21.1 pg (28.0-32.0); MEAN CORPUSCULAR VOLUME 65.8 fL (80.0-94.0); PLATELET 224 x1000/uL (130-400); RED BLOOD CELL COUNT 4.59 mill/uL (4.7-6.1); RED CELL DISTRIBUTION WIDTH 21.1 % (11.6-14.6)
[2019-12-05 06:21] LABS: CHLORIDE 106 mEq/L (98-107)
[2019-12-05] MEDS: METHYLPREDNISOLONE SOD SUCC 40 MG/ML VIAL IV SCH ×2 (06:52→13:41)
[2019-12-05] MEDS: DOXYCYCLINE HYCLATE 100MG CAPSULE PO SCH ×2 (08:40→21:27)
[2019-12-05] MEDS: HEPARIN 5000 UNITS/ML VIAL SUBCUT SCH ×2 (08:40→21:27)
[2019-12-05] MEDS: CARVEDILOL 3.125 MG TABLET NG SCH ×2 (08:40→21:28)
[2019-12-05] MEDS: MIDODRINE HCL 2.5MG TABLET PEG SCH ×3 (08:40→17:44)
[2019-12-05] MEDS: FENTANYL CITRATE/PF 1,000 MCG in SODIUM CHLORIDE 0.9% 80 ML IV PRN ×2 (08:42→21:39)
[2019-12-05 09:38] LABS: PLATELET ESTIMATE NORMAL
[2019-12-05 10:19] LABS: BG BASE EXCESS 8.6 mmol/L (-2.0-2.0); BG DEOXYHEMOGLOBIN 22.6 % (0.0-5.0); BG FRACTION INSPIRED OXYGEN 40; BG HCO3 ACT 34.4 mmol/L (22.0-26.0); BG METHEMOGLOBIN 0.2 % (0.0-1.5); BG OXYGEN SATURATION 77.1 % (92.0-98.5); BG OXYHEMOGLOBIN 76.2 % (94.0-97.0); BG PCO2 54.3 mmHg (35.0-45.0); BG PO2 45.4 mmHg (75.0-100.0); BG SAMPLE SITE RIGHT RADIAL; BG TIDAL VOLUME(mL) 550 mL; BG TOTAL HEMOGLOBIN 10.2 g/dL (12.0-18.0); BG VENT MODE VENT - A/C; BG VENT RATE 14 set
[2019-12-05 11:51] LABS: BG BASE EXCESS 6.9 mmol/L (-2.0-2.0); BG CARBOXYHEMOGLOBIN 0.3 % (0.5-1.5); BG FRACTION INSPIRED OXYGEN 40; BG HCO3 ACT 31.4 mmol/L (22.0-26.0); BG METHEMOGLOBIN 0.4 % (0.0-1.5); BG OXYHEMOGLOBIN 94.3 % (94.0-97.0); BG PCO2 44.7 mmHg (35.0-45.0); BG PH 7.464 (7.350-7.450); BG SAMPLE SITE RIGHT RADIAL; BG TIDAL VOLUME(mL) 550 mL; BG TOTAL HEMOGLOBIN 10.2 g/dL (12.0-18.0); BG VENT MODE VENT - CPAP; BG VENT RATE 14 set
[2019-12-05] MEDS ORDERED: POTASSIUM CHLORIDE INJ 40 MEQ in DEXT 5% WATER 250 ML IV SCH ×2 (13:00→18:00)
[2019-12-05] MEDS: FUROSEMIDE 40MG/4ML VIAL IV SCH ×2 (13:42→17:43)
[2019-12-05] MEDS: FAMOTIDINE 20MG/2ML VIAL IV SCH (21:26)
[2019-12-06] VITALS (92 sets, daily range): BP systolic 106–160; BP diastolic 51–127
[2019-12-06] MEDS: MIDAZOLAM HCL 100 MG in DEXT 5% WATER 80 ML IV PRN ×2 (01:02→14:37)
[2019-12-06] MEDS: IPRATROPIUM/ALBUTEROL 0.5-3(2.5)MG/3ML NEB HHN SCH ×4 (01:11→19:51)
[2019-12-06] MEDS: PIPERACILLIN/TAZOBACTAM 2.25 G in DEXTROSE 5% WATER 50 ML IV SCH ×3 (01:54→17:08)
[2019-12-06 07:30] LABS: HEMATOCRIT. 28.7 % (42.0-52.0); MEAN CORPUSCULAR HEMOGLOBIN 20.7 pg (28.0-32.0); MEAN CORPUSCULAR VOLUME 66.4 fL (80.0-94.0); MEAN PLATELET VOLUME 9.1 fl (7.4-10.4); PLATELET 177 x1000/uL (130-400); RED BLOOD CELL COUNT 4.32 mill/uL (4.7-6.1); RED CELL DISTRIBUTION WIDTH 21.4 % (11.6-14.6)
[2019-12-06 07:46] LABS: CHLORIDE 107 mEq/L (98-107)
[2019-12-06] MEDS ORDERED: POTASSIUM CHLORIDE INJ 40 MEQ in DEXT 5% WATER 250 ML IV ONE (08:30)
[2019-12-06] MEDS ORDERED: ASPIRIN 81MG TABLET ONE (09:21)
[2019-12-06] MEDS: FUROSEMIDE 40MG/4ML VIAL IV SCH ×2 (09:48→17:08)
[2019-12-06] MEDS: HEPARIN 5000 UNITS/ML VIAL SUBCUT SCH ×2 (10:00→21:26)
[2019-12-06] MEDS: CARVEDILOL 3.125 MG TABLET NG SCH ×2 (10:02→21:25)
[2019-12-06] MEDS: DOXYCYCLINE HYCLATE 100MG CAPSULE PO SCH ×2 (10:09→21:25)
[2019-12-06] MEDS: MIDODRINE HCL 2.5MG TABLET PEG SCH ×3 (10:09→17:12)
[2019-12-06 11:04] LABS: BG BASE EXCESS 10.7 mmol/L (-2.0-2.0); BG CARBOXYHEMOGLOBIN 0.2 % (0.5-1.5); BG DEOXYHEMOGLOBIN 3.7 % (0.0-5.0); BG FRACTION INSPIRED OXYGEN 40; BG HCO3 ACT 36.3 mmol/L (22.0-26.0); BG METHEMOGLOBIN 1.5 % (0.0-1.5); BG OXYGEN SATURATION 96.2 % (92.0-98.5); BG OXYHEMOGLOBIN 94.6 % (94.0-97.0); BG PCO2 53.9 mmHg (35.0-45.0); BG PH 7.446 (7.350-7.450); BG PO2 98.5 mmHg (75.0-100.0); BG SAMPLE SITE RIGHT RADIAL; BG TIDAL VOLUME(mL) 550 mL; BG VENT MODE VENT - A/C; BG VENT RATE 14 set
[2019-12-06] MEDS: DEXT 5% WATER + KCL 20MEQ/L 1,000 ML IV SCH (11:30)
[2019-12-06] MEDS: FENTANYL CITRATE/PF 1,000 MCG in SODIUM CHLORIDE 0.9% 80 ML IV PRN (12:06)
[2019-12-06] MEDS ORDERED: POTASSIUM CHLORIDE INJ 40 MEQ in DEXT 5% WATER 250 ML IV NR (12:30)
[2019-12-06] MEDS ORDERED: POTASSIUM CHLORIDE 20MEQ/PACKET PO NR (13:15)
[2019-12-06 14:15] LABS: PLATELET ESTIMATE NORMAL
[2019-12-06] MEDS: FAMOTIDINE 20MG/2ML VIAL IV SCH (21:25)
[2019-12-07] VITALS (89 sets, daily range): BP systolic 106–147; BP diastolic 51–106
[2019-12-07] MEDS: PIPERACILLIN/TAZOBACTAM 2.25 G in DEXTROSE 5% WATER 50 ML IV SCH ×3 (01:27→17:12)
[2019-12-07] MEDS: IPRATROPIUM/ALBUTEROL 0.5-3(2.5)MG/3ML NEB HHN SCH ×4 (01:53→20:30)
[2019-12-07] MEDS: FENTANYL CITRATE/PF 1,000 MCG in SODIUM CHLORIDE 0.9% 80 ML IV PRN ×2 (05:28→18:28)
[2019-12-07 07:41] LABS: HEMATOCRIT. 30.3 % (42.0-52.0); HEMOGLOBIN. 9.5 g/dL (14.0-18.0); MEAN CORPUSCULAR HEMOGLOBIN 20.8 pg (28.0-32.0); MEAN CORPUSCULAR VOLUME 66.5 fL (80.0-94.0); MEAN PLATELET VOLUME 8.9 fl (7.4-10.4); PLATELET 166 x1000/uL (130-400); RED BLOOD CELL COUNT 4.55 mill/uL (4.7-6.1); RED CELL DISTRIBUTION WIDTH 21.2 % (11.6-14.6)
[2019-12-07] MEDS: DOXYCYCLINE HYCLATE 100MG CAPSULE PO SCH ×2 (08:48→20:36)
[2019-12-07] MEDS: HEPARIN 5000 UNITS/ML VIAL SUBCUT SCH ×2 (08:48→20:37)
[2019-12-07] MEDS: FUROSEMIDE 40MG/4ML VIAL IV SCH (08:48)
[2019-12-07] MEDS: MIDODRINE HCL 2.5MG TABLET PEG SCH ×2 (08:49→11:40)
[2019-12-07] MEDS: CARVEDILOL 3.125 MG TABLET NG SCH ×2 (08:49→20:37)
[2019-12-07] MEDS: MIDAZOLAM HCL 100 MG in DEXT 5% WATER 80 ML IV PRN ×2 (08:51→18:33)
[2019-12-07 09:20] LABS: PLATELET ESTIMATE NORMAL
[2019-12-07] MEDS ORDERED: POTASSIUM CHLORIDE 20MEQ/PACKET NG NR (11:15)
[2019-12-07] MEDS: DEXT 5% WATER + KCL 20MEQ/L 1,000 ML IV SCH (11:32)
[2019-12-07] MEDS: RISPERIDONE 1MG TABLET PO SCH (18:00)
[2019-12-07] MEDS: FAMOTIDINE 20MG/2ML VIAL IV SCH (20:37)
[2019-12-08] VITALS (74 sets, daily range): BP systolic 85–160; BP diastolic 34–122
[2019-12-08] MEDS: IPRATROPIUM/ALBUTEROL 0.5-3(2.5)MG/3ML NEB HHN SCH ×4 (02:07→20:00)
[2019-12-08 06:54] LABS: INR 1.1; PARTIAL THROMBOPLASTIN TIME 40.3 sec (23.4-31.0)
[2019-12-08 07:01] LABS: HEMATOCRIT. 32.2 % (42.0-52.0); HEMOGLOBIN. 10.3 g/dL (14.0-18.0); MEAN CORPUSCULAR HEMOGLOBIN 21.2 pg (28.0-32.0); MEAN CORPUSCULAR VOLUME 66.4 fL (80.0-94.0); PLATELET 147 x1000/uL (130-400); RED BLOOD CELL COUNT 4.85 mill/uL (4.7-6.1); RED CELL DISTRIBUTION WIDTH 21.5 % (11.6-14.6)
[2019-12-08] MEDS ORDERED: FUROSEMIDE 40MG/4ML VIAL IV SCH (09:00)
[2019-12-08] MEDS: RISPERIDONE 1MG TABLET PO SCH ×2 (09:00→17:05)
[2019-12-08 09:52] LABS: BG BASE EXCESS 0.9 mmol/L (-2.0-2.0); BG CARBOXYHEMOGLOBIN 0.4 % (0.5-1.5); BG DEOXYHEMOGLOBIN 1.7 % (0.0-5.0); BG FRACTION INSPIRED OXYGEN 40; BG HCO3 ACT 24.3 mmol/L (22.0-26.0); BG METHEMOGLOBIN 0.3 % (0.0-1.5); BG OXYGEN SATURATION 98.3 % (92.0-98.5); BG OXYHEMOGLOBIN 97.6 % (94.0-97.0); BG PH 7.472 (7.350-7.450); BG PO2 123.4 mmHg (75.0-100.0); BG SAMPLE SITE RIGHT RADIAL; BG TIDAL VOLUME(mL) 550 mL; BG TOTAL HEMOGLOBIN 9.9 g/dL (12.0-18.0); BG VENT MODE VENT - A/C; BG VENT RATE 14 set
[2019-12-08] MEDS: CARVEDILOL 3.125 MG TABLET NG SCH ×2 (09:57→21:00)
[2019-12-08] MEDS: DOXYCYCLINE HYCLATE 100MG CAPSULE PO SCH ×2 (09:57→21:08)
[2019-12-08] MEDS: POTASSIUM CHLORIDE 20MEQ/PACKET PO SCH (10:01)
[2019-12-08] MEDS: HEPARIN 5000 UNITS/ML VIAL SUBCUT SCH ×2 (10:04→21:00)
[2019-12-08 13:25] LABS: PLATELET ESTIMATE NORMAL
[2019-12-08] MEDS: MIDAZOLAM HCL 100 MG in DEXT 5% WATER 80 ML IV PRN (14:00)
[2019-12-08] MEDS: FENTANYL CITRATE/PF 1,000 MCG in SODIUM CHLORIDE 0.9% 80 ML IV PRN (17:09)
[2019-12-08] MEDS: FAMOTIDINE 20MG/2ML VIAL IV SCH (21:08)
[2019-12-09] VITALS (23 sets, daily range): BP systolic 89–164; BP diastolic 53–102
[2019-12-09] MEDS: IPRATROPIUM/ALBUTEROL 0.5-3(2.5)MG/3ML NEB HHN SCH ×4 (01:56→21:10)
[2019-12-09] MEDS: HEPARIN 5000 UNITS/ML VIAL SUBCUT SCH ×2 (08:01→09:53)
[2019-12-09 09:01] LABS: HEMATOCRIT. 29.3 % (42.0-52.0); HEMOGLOBIN. 9.3 g/dL (14.0-18.0); MEAN CORPUSCULAR VOLUME 66.1 fL (80.0-94.0); MEAN PLATELET VOLUME 9.3 fl (7.4-10.4); PLATELET 123 x1000/uL (130-400); RED BLOOD CELL COUNT 4.43 mill/uL (4.7-6.1); RED CELL DISTRIBUTION WIDTH 21.6 % (11.6-14.6)
[2019-12-09] MEDS: RISPERIDONE 1MG TABLET PO SCH (09:51)
[2019-12-09] MEDS: DOXYCYCLINE HYCLATE 100MG CAPSULE PO SCH ×2 (09:52→21:06)
[2019-12-09] MEDS: POTASSIUM CHLORIDE 20MEQ/PACKET PO SCH (09:52)
[2019-12-09] MEDS: CARVEDILOL 3.125 MG TABLET NG SCH ×2 (09:52→20:50)
[2019-12-09 10:36] LABS: BG BASE EXCESS 12.2 mmol/L (-2.0-2.0); BG CARBOXYHEMOGLOBIN 0.4 % (0.5-1.5); BG CPAP (cmH2O) 0 cm(H2O); BG DEOXYHEMOGLOBIN 3.3 % (0.0-5.0); BG HCO3 ACT 38.7 mmol/L (22.0-26.0); BG METHEMOGLOBIN 0.2 % (0.0-1.5); BG OXYGEN SATURATION 96.7 % (92.0-98.5); BG OXYHEMOGLOBIN 96.1 % (94.0-97.0); BG PO2 99.8 mmHg (75.0-100.0); BG SAMPLE SITE RIGHT RADIAL; BG TOTAL HEMOGLOBIN 10.4 g/dL (12.0-18.0); BG VENT MODE VENT - CPAP
[2019-12-09] MEDS ORDERED: DOCUSATE SODIUM 100MG CAPSULE PO PRN (13:15)
[2019-12-09] MEDS ORDERED: SENNOSIDES/DOCUSATE SOD 8.6/50MG TABLET PO PRN (13:15)
[2019-12-09] MEDS ORDERED: POLYETHYLENE GLYCOL 3350 (17GM) 1 DOSE PACK PO PRN (13:15)
[2019-12-09] MEDS ORDERED: BISACODYL 10MG SUPP PR PRN (13:15)
[2019-12-09] MEDS ORDERED: MAGNESIUM HYDROXIDE 400MG/5ML 30ML UDC PO PRN (13:15)
[2019-12-09 13:32] LABS: PLATELET ESTIMATE SLIGHTLY DECREASED
[2019-12-09] MEDS: ACETYLCYSTEINE 100MG/ML 10% VIAL 4ML INH SCH ×2 (14:12→21:10)
[2019-12-09] MEDS: DOCUSATE SODIUM SUGAR FREE 100MG/10ML UDC NG PRN (15:08)
[2019-12-09] MEDS: DESMOPRESSIN ACETATE 0.1MG TABLET PO SCH (17:52)
[2019-12-09] MEDS: METOCLOPRAMIDE HCL 10MG/2ML VIAL IV PRN (18:55)
[2019-12-09] MEDS ORDERED: DEXTROSE 50% WATER 50ML SYRINGE IV PRN (20:15)
[2019-12-09] MEDS ORDERED: NA PHOS,M-B/NA PHOS,DI-BA ENEMA 118ML PR PRN (20:15)
[2019-12-09] MEDS: FAMOTIDINE 20MG/2ML VIAL IV SCH (20:50)
[2019-12-09] MEDS ORDERED: DESMOPRESSIN ACETATE 0.1MG TABLET PO SCH (21:00)
[2019-12-09] MEDS ORDERED: RISPERIDONE 1MG TABLET PO SCH (21:00)
[2019-12-09] MEDS: BLOOD SUGAR DIAGNOSTIC STRIP TEST SCH (21:06)
[2019-12-09] MEDS ORDERED: MINERAL OIL ENEMA 133ML PR PRN (21:07)
[2019-12-09] MEDS: HYDRALAZINE 20MG/ML VIAL IV PRN (21:56)
[2019-12-10] VITALS (35 sets, daily range): BP systolic 121–180; BP diastolic 69–101
[2019-12-10] MEDS: METOCLOPRAMIDE HCL 10MG/2ML VIAL IV PRN (00:31)
[2019-12-10] MEDS: RISPERIDONE 1MG TABLET PO PRN ×2 (01:00→20:46)
[2019-12-10] MEDS: IPRATROPIUM/ALBUTEROL 0.5-3(2.5)MG/3ML NEB HHN SCH ×5 (01:19→20:45)
[2019-12-10] MEDS: ACETYLCYSTEINE 100MG/ML 10% VIAL 4ML INH SCH ×2 (01:59→09:05)
[2019-12-10] MEDS: HYDRALAZINE 20MG/ML VIAL IV PRN ×2 (04:31→21:08)
[2019-12-10] MEDS: DOCUSATE SODIUM SUGAR FREE 100MG/10ML UDC NG PRN (04:56)
[2019-12-10] MEDS: DESMOPRESSIN ACETATE 0.1MG TABLET PO SCH (05:02)
[2019-12-10] MEDS: BLOOD SUGAR DIAGNOSTIC STRIP TEST SCH ×4 (07:05→20:00)
[2019-12-10 07:07] LABS: HEMATOCRIT. 32.2 % (42.0-52.0); HEMOGLOBIN. 10.1 g/dL (14.0-18.0); MEAN CORPUSCULAR HEMOGLOBIN 20.9 pg (28.0-32.0); MEAN CORPUSCULAR VOLUME 66.9 fL (80.0-94.0); RED BLOOD CELL COUNT 4.81 mill/uL (4.7-6.1); RED CELL DISTRIBUTION WIDTH 21.6 % (11.6-14.6)
[2019-12-10 07:59] LABS: CHLORIDE 116 mEq/L (98-107)
[2019-12-10] MEDS: DOXYCYCLINE HYCLATE 100MG CAPSULE PO SCH (08:47)
[2019-12-10] MEDS: CARVEDILOL 3.125 MG TABLET NG SCH (08:47)
[2019-12-10] MEDS: POTASSIUM CHLORIDE 20MEQ/PACKET PO SCH (08:47)
[2019-12-10 10:40] LABS: PLATELET 119 x1000/uL (130-400)
[2019-12-10 10:43] LABS: PLATELET ESTIMATE DECREASED
[2019-12-10] MEDS ORDERED: MAGNESIUM CITRATE 300ML SOLUTION PO NR (15:00)
[2019-12-10] MEDS: FAMOTIDINE 20MG/2ML VIAL IV SCH (20:46)
[2019-12-10] MEDS: CARVEDILOL 6.25 MG TABLET NG SCH (20:46)
[2019-12-11] VITALS (13 sets, daily range): BP systolic 113–167; BP diastolic 60–96
[2019-12-11] MEDS: ACETYLCYSTEINE 100MG/ML 10% VIAL 4ML INH SCH (00:30)
[2019-12-11] MEDS: IPRATROPIUM/ALBUTEROL 0.5-3(2.5)MG/3ML NEB HHN SCH ×3 (00:30→14:55)
[2019-12-11 06:51] LABS: CHLORIDE 118 mEq/L (98-107)
[2019-12-11 06:59] LABS: HEMATOCRIT. 32.2 % (42.0-52.0); MEAN CORPUSCULAR HEMOGLOBIN 20.6 pg (28.0-32.0); MEAN CORPUSCULAR VOLUME 65.9 fL (80.0-94.0); MEAN PLATELET VOLUME 9.7 fl (7.4-10.4); PLATELET 110 x1000/uL (130-400); RED BLOOD CELL COUNT 4.88 mill/uL (4.7-6.1)
[2019-12-11] MEDS: BLOOD SUGAR DIAGNOSTIC STRIP TEST SCH ×2 (08:16→11:56)
[2019-12-11] MEDS: HYDRALAZINE 20MG/ML VIAL IV PRN ×2 (08:23→18:23)
[2019-12-11] MEDS: CARVEDILOL 6.25 MG TABLET NG SCH ×2 (09:32→20:03)
[2019-12-11 09:53] LABS: PLATELET ESTIMATE DECREASED
[2019-12-11] MEDS: LOSARTAN POTASSIUM 50 MG TABLET PO SCH (13:10)
[2019-12-11] MEDS ORDERED: AMOXICILLIN/POTASSIUM CLAVULANATE 875/125MG TAB PO SCH (14:00)
[2019-12-11] MEDS: AMOXICILLIN/POTASSIUM CLAVULANATE 875/125MG TAB PO SCH (16:59)
[2019-12-11] MEDS ORDERED: HALOPERIDOL LACTATE 5MG/ML VIAL IM PRN (19:45)
[2019-12-11] MEDS: RISPERIDONE 1MG TABLET PO SCH (19:47)
[2019-12-11] MEDS: FAMOTIDINE 20MG/2ML VIAL IV SCH (20:04)
[2019-12-12] VITALS (12 sets, daily range): BP systolic 98–171; BP diastolic 58–105
[2019-12-12] MEDS: ACETYLCYSTEINE 100MG/ML 10% VIAL 4ML INH SCH ×2 (07:56→14:09)
[2019-12-12] MEDS: IPRATROPIUM/ALBUTEROL 0.5-3(2.5)MG/3ML NEB HHN SCH ×3 (07:57→20:24)
[2019-12-12] MEDS: CARVEDILOL 6.25 MG TABLET NG SCH (08:36)
[2019-12-12] MEDS: AMOXICILLIN/POTASSIUM CLAVULANATE 875/125MG TAB PO SCH ×2 (08:36→20:13)
[2019-12-12] MEDS: LOSARTAN POTASSIUM 50 MG TABLET PO SCH (08:42)
[2019-12-12] MEDS: RISPERIDONE 1MG TABLET PO SCH ×2 (08:50→17:59)
[2019-12-12 09:48] LABS: HEMATOCRIT. 31.4 % (42.0-52.0); HEMOGLOBIN. 9.8 g/dL (14.0-18.0); MEAN CORPUSCULAR VOLUME 67.1 fL (80.0-94.0); MEAN PLATELET VOLUME 9.5 fl (7.4-10.4); PLATELET 112 x1000/uL (130-400); RED BLOOD CELL COUNT 4.68 mill/uL (4.7-6.1)
[2019-12-12 10:06] LABS: CHLORIDE 116 mEq/L (98-107)
[2019-12-12 15:03] LABS: PLATELET ESTIMATE DECREASED
[2019-12-12] MEDS: FAMOTIDINE 20MG/2ML VIAL IV SCH (20:13)
[2019-12-12] MEDS: CARVEDILOL 12.5MG TABLET PO SCH (20:13)
[2019-12-13] VITALS (10 sets, daily range): BP systolic 114–159; BP diastolic 72–91
[2019-12-13] MEDS: IPRATROPIUM/ALBUTEROL 0.5-3(2.5)MG/3ML NEB HHN SCH (02:51)
[2019-12-13 07:00] LABS: HEMATOCRIT. 27.7 % (42.0-52.0); MEAN CORPUSCULAR HEMOGLOBIN 21.2 pg (28.0-32.0); MEAN CORPUSCULAR VOLUME 65.4 fL (80.0-94.0); RED BLOOD CELL COUNT 4.24 mill/uL (4.7-6.1); RED CELL DISTRIBUTION WIDTH 21.7 % (11.6-14.6)
[2019-12-13 07:15] LABS: CHLORIDE 113 mEq/L (98-107)
[2019-12-13 08:23] LABS: NUCLEATED RED BLOOD CELLS 1 /100 WBC
[2019-12-13 08:24] LABS: PLATELET ESTIMATE DECREASED
[2019-12-13 08:25] LABS: MEAN PLATELET VOLUME 9.2 fl (7.4-10.4); PLATELET 78 x1000/uL (130-400)
[2019-12-13] MEDS: AMOXICILLIN/POTASSIUM CLAVULANATE 875/125MG TAB PO SCH (08:53)
[2019-12-13] MEDS: RISPERIDONE 1MG TABLET PO SCH ×2 (08:55→17:12)
[2019-12-13] MEDS: LOSARTAN POTASSIUM 50 MG TABLET PO SCH (08:55)
[2019-12-13] MEDS: CARVEDILOL 12.5MG TABLET PO SCH (08:55)
[2019-12-13] MEDS ORDERED: LOSARTAN POTASSIUM 50 MG TABLET PO SCH (13:45)
[2019-12-13] MEDS ORDERED: LORAZEPAM 2MG/ML CPJ IV PRN (14:00)
[2019-12-23] MEDS ORDERED: CARV6.2548 MT (15:10)
[2019-12-23] MEDS ORDERED: FLUT1DIS3 INH (15:10)
[2019-12-23] MEDS ORDERED: POTA-79 MT (15:10)
[2019-12-23] MEDS ORDERED: LOSA50TA41 MT (15:10)
[2019-12-23] MEDS ORDERED: ALBU18HF2 IH (15:10)
[2019-12-23] MEDS ORDERED: FURO-151 MT (15:10)
== END 2019-12-13 19:05 | disposition home or self-care (01) | DRG 720 ==
LOC: ER 12:10 → MICUNO 15:53 → EDBEDREQSVC 15:59 → EDBEDREQ 15:59 → ENRESERV 12-02 11:52 → 5EST 12-04 09:55
PROVIDERS: ADMIT Family Medicine Adult Medicine; ATTEND Family Medicine Adult Medicine
PROC: 0BH17EZ Insertion of Endotracheal Airway into Trachea, Via Natural or Artificial Opening (ICD-10-PCS; principal; 2019-12-01)
PROC: 5A1955Z Respiratory Ventilation, Greater than 96 Consecutive Hours (ICD-10-PCS; 2019-12-01)
DX: A41.9 Sepsis, unspecified organism (principal); I21.4 Non-ST elevation (NSTEMI) myocardial infarction; J96.21 Acute and chronic respiratory failure with hypoxia; J69.0 Pneumonitis due to inhalation of food and vomit; N17.0 Acute kidney failure with tubular necrosis; R65.21 Severe sepsis with septic shock; R57.0 Cardiogenic shock; K72.00 Acute and subacute hepatic failure without coma; T40.5X1A Poisoning by cocaine, accidental (unintentional), initial encounter; E87.1 Hypo-osmolality and hyponatremia; Z87.11 Personal history of peptic ulcer disease; Z86.11 Personal history of tuberculosis; N40.0 Benign prostatic hyperplasia without lower urinary tract symptoms; E87.2 Acidosis; E87.5 Hyperkalemia; J68.0 Bronchitis and pneumonitis due to chemicals, gases, fumes and vapors; B19.20 Unspecified viral hepatitis C without hepatic coma; D64.9 Anemia, unspecified; E87.0 Hyperosmolality and hypernatremia; E87.4 Mixed disorder of acid-base balance; E87.6 Hypokalemia; F17.210 Nicotine dependence, cigarettes, uncomplicated; I13.0 Hypertensive heart and chronic kidney disease with heart failure and stage 1 through stage 4 chronic kidney disease, or unspecified chronic kidney disease; I42.9 Cardiomyopathy, unspecified; J91.8 Pleural effusion in other conditions classified elsewhere; I50.33 Acute on chronic diastolic (congestive) heart failure; J96.22 Acute and chronic respiratory failure with hypercapnia; K27.9 Peptic ulcer, site unspecified, unspecified as acute or chronic, without hemorrhage or perforation; K59.00 Constipation, unspecified; T50.2X5A Adverse effect of carbonic-anhydrase inhibitors, benzothiadiazides and other diuretics, initial encounter; N18.9 Chronic kidney disease, unspecified; Z03.818 Encounter for observation for suspected exposure to other biological agents ruled out; Z78.1 Physical restraint status; Y92.89 Other specified places as the place of occurrence of the external cause; Z79.899 Other long term (current) drug therapy; Z68.25 Body mass index [BMI] 25.0-25.9, adult
CPT/HCPCS: 36415; 36600; 71045; 74018; 80048; 80053; 80305; 80320; 81003; 82140; 82375; 82805; 82962; 83605; 83735; 83880; 83930; 83935; 84145; 84484; 85025; 87070; 92610; 93005; 93306; 94003; 94640; 97116; 97162; 97166; 99291; J0360; J1630; J1644; J1940; J2060; J2250; J2405; J2543; J2704; J2765; J2920; J3010; J3480; J3490; J7050; J7060; J7608; G0480; U0003-CS

== ENCOUNTER 2020-09-05 14:13 | Inpatient (IN) | payer MEDICARE, MEDICAID ==
[~2020-09-05] VITALS: Ht 188 cm; Wt 115.3 kg
[~2020-09-05 14:13] MED LIST changes: +ALBU18HF2 IH; +CARV6.2548 MT; +FLUT1DIS3 INH; +FURO-151 MT; -LIDOCAINE HCL/PF 1% 2ML VIAL ONE; +POTA-79 MT
[2020-09-05] MEDS ORDERED: NITROGLYCERIN 50MG PREMIX 250 ML IV ONE (14:45)
[2020-09-05] MEDS ORDERED: FUROSEMIDE 40MG/4ML VIAL IVP ONE (14:45)
[2020-09-05 14:56] LABS: BG BASE EXCESS 3.2 mmol/L (-2.0-2.0); BG FRACTION INSPIRED OXYGEN 36; BG HCO3 ACT 32.3 mmol/L (22.0-26.0); BG METHEMOGLOBIN 0.3 % (0.0-1.5); BG OXYHEMOGLOBIN 95.7 % (94.0-97.0); BG PCO2 72.5 mmHg (35.0-45.0); BG PH 7.267 (7.350-7.450); BG PO2 168.8 mmHg (75.0-100.0); BG SAMPLE SITE RIGHT RADIAL; BG TOTAL HEMOGLOBIN 13.3 g/dL (12.0-18.0); BG VENT MODE NASAL CANNULA
[2020-09-05] MEDS ORDERED: ASPIRIN 325MG EC TABLET PO ONE (15:00)
[2020-09-05] MEDS ORDERED: IPRATROPIUM/ALBUTEROL 0.5-3(2.5)MG/3ML NEB NEB PRN (17:45)
[2020-09-05] MEDS ORDERED: MAGNESIUM/ALUMINUM HYDROXIDE/SIMETHICONE 30ML UDC PO PRN (17:45)
[2020-09-05] MEDS ORDERED: ACETAMINOPHEN 325MG TABLET PO PRN ×2 (17:45)
[2020-09-05] MEDS ORDERED: GUAIFENESIN 200MG/10ML SUGAR FREE UDC PO PRN (17:45)
[2020-09-05] MEDS ORDERED: ENOXAPARIN 40MG/0.4ML SYR SUBCUT SCH (17:45)
[2020-09-05] MEDS ORDERED: TRAMADOL 50MG TABLET PO PRN (17:45)
[2020-09-05] MEDS ORDERED: ONDANSETRON HCL 4MG/2ML INJ IV PRN (17:45)
[2020-09-05] MEDS ORDERED: NITROGLYCERIN 0.4MG TABLET SL SL PRN (17:45)
[2020-09-05 17:51] LABS: BASOPHILS % 0.3 % (0.0-2.0); EOSINOPHILS % 0.2 % (0.0-5.0); HEMATOCRIT. 37.7 % (42.0-52.0); HEMOGLOBIN. 12.2 g/dL (14.0-18.0); LYMPHOCYTES % 12.4 % (20.0-50.0); MEAN CORPUSCULAR HEMOGLOBIN 28.9 pg (28.0-32.0); MEAN CORPUSCULAR VOLUME 88.9 fL (80.0-94.0); MEAN PLATELET VOLUME 10.3 fl (7.4-10.4); MONOCYTES % 11.1 % (2.0-8.0); PLATELET 128 x1000/uL (130-400); RED BLOOD CELL COUNT 4.23 mill/uL (4.7-6.1); RED CELL DISTRIBUTION WIDTH 16.7 % (11.6-14.6)
[2020-09-05 17:56] LABS: CHLORIDE 99 mEq/L (98-107)
[2020-09-05 17:57] LABS: INR 1.2; PROTHROMBIN TIME 12.4 sec (9.6-11.0)
[2020-09-05] MEDS: DILTIAZEM HCL 60MG TABLET PO SCH (18:59)
[2020-09-05] MEDS: FUROSEMIDE 40MG/4ML VIAL IVP SCH (21:15)
[2020-09-05] MEDS: SPIRONOLACTONE 25MG TABLET PO SCH (21:15)
[2020-09-05] MEDS ORDERED: ALBUTEROL 6.7GM HFA INHALER ORI PRN (21:15)
[2020-09-05] MEDS: FAMOTIDINE 20MG TABLET PO SCH (21:16)
[2020-09-05] MEDS: ASCORBIC ACID 500 MG TABLET PO SCH (21:16)
[2020-09-05] MEDS ORDERED: CEFTRIAXONE 1 G PREMIX 50 ML IV SCH (22:00)
[2020-09-05] MEDS ORDERED: AZITHROMYCIN 500 MG in DEXT 5% WATER 250 ML IV SCH (23:00)
[2020-09-05] MEDS: DEXAMETHASONE 10 MG/ML VIAL IV SCH (23:36)
[2020-09-05] MEDS: NITROGLYCERIN OINT 1GM/INCH UDPKT TD SCH (23:49)
[2020-09-05] MEDS: RIVAROXABAN 20 MG TABLET PO SCH (23:51)
[2020-09-06] MEDS: DILTIAZEM HCL 60MG TABLET PO SCH ×4 (00:28→17:23)
[2020-09-06 00:42] LABS: CREATINE KINASE MB FRACTION 4.4 ng/mL (0.5-3.6)
[2020-09-06 05:21] LABS: HEMATOCRIT. 37.4 % (42.0-52.0); HEMOGLOBIN. 12.1 g/dL (14.0-18.0); MEAN CORPUSCULAR HEMOGLOBIN 28.7 pg (28.0-32.0); MEAN CORPUSCULAR VOLUME 88.5 fL (80.0-94.0); MEAN PLATELET VOLUME 10.2 fl (7.4-10.4); PLATELET 130 x1000/uL (130-400); RED BLOOD CELL COUNT 4.22 mill/uL (4.7-6.1); RED CELL DISTRIBUTION WIDTH 16.4 % (11.6-14.6)
[2020-09-06 05:37] LABS: CHLORIDE 97 mEq/L (98-107)
[2020-09-06 05:51] LABS: PHOSPHORUS 3.9 mg/dL (2.5-4.9)
[2020-09-06 05:54] LABS: CREATINE KINASE 158 IU/L (39-308)
[2020-09-06 05:57] LABS: CREATINE KINASE MB FRACTION 4.2 ng/mL (0.5-3.6)
[2020-09-06] MEDS: NITROGLYCERIN OINT 1GM/INCH UDPKT TD SCH ×3 (06:39→22:51)
[2020-09-06] MEDS: FAMOTIDINE 20MG TABLET PO SCH ×2 (09:00→21:37)
[2020-09-06] MEDS: SPIRONOLACTONE 25MG TABLET PO SCH ×2 (09:00→21:38)
[2020-09-06] MEDS: ASCORBIC ACID 500 MG TABLET PO SCH ×2 (09:00→21:37)
[2020-09-06] MEDS: FUROSEMIDE 40MG/4ML VIAL IVP SCH ×2 (09:00→21:38)
[2020-09-06] MEDS: DEXAMETHASONE 10 MG/ML VIAL IV SCH (09:00)
[2020-09-06] MEDS: ASPIRIN 325MG EC TABLET PO SCH (09:00)
[2020-09-06] MEDS: ZINC SULFATE 220 MG ( 50 ) CAPSULE PO SCH (09:00)
[2020-09-06 12:51] LABS: PLATELET ESTIMATE NORMAL
[2020-09-06] MEDS: RIVAROXABAN 20 MG TABLET PO SCH (17:24)
[2020-09-06 20:00] VITALS: BP 126/87
[2020-09-06] MEDS ORDERED: AZITHROMYCIN 500 MG in DEXT 5% WATER 250 ML IV SCH (21:00)
[2020-09-06] MEDS: CEFTRIAXONE 1,000 MG in DEXTROSE 5% WATER 50 ML IV SCH (21:39)
[2020-09-06 22:50] VITALS: BP 138/103
[2020-09-07] VITALS (7 sets, daily range): BP systolic 114–152; BP diastolic 71–99
[2020-09-07] MEDS: DILTIAZEM HCL 60MG TABLET PO SCH ×4 (00:36→18:26)
[2020-09-07] MEDS: NITROGLYCERIN OINT 1GM/INCH UDPKT TD SCH ×3 (05:36→21:48)
[2020-09-07] MEDS: FAMOTIDINE 20MG TABLET PO SCH ×2 (09:14→20:34)
[2020-09-07] MEDS: ASCORBIC ACID 500 MG TABLET PO SCH ×2 (09:14→20:34)
[2020-09-07] MEDS: FUROSEMIDE 40MG/4ML VIAL IVP SCH ×2 (09:14→20:35)
[2020-09-07] MEDS: SPIRONOLACTONE 25MG TABLET PO SCH ×2 (09:15→20:34)
[2020-09-07] MEDS: DEXAMETHASONE 10 MG/ML VIAL IV SCH (09:15)
[2020-09-07] MEDS: ZINC SULFATE 220 MG ( 50 ) CAPSULE PO SCH (09:15)
[2020-09-07] MEDS: ASPIRIN 325MG EC TABLET PO SCH (09:15)
[2020-09-07] MEDS: DOCUSATE SODIUM 100MG CAPSULE PO PRN (10:13)
[2020-09-07] MEDS: NA PHOS,M-B/NA PHOS,DI-BA ENEMA 118ML PR PRN (10:22)
[2020-09-07 15:49] LABS: CLARITY URINE CLEAR (CLEAR); COLOR URINE YELLOW (YELLOW); KETONES URINE NEGATIVE (NEGATIVE); LEUKOCYTE ESTERASE URINE NEGATIVE (NEGATIVE); NITRITE URINE NEGATIVE (NEGATIVE); OCCULT BLOOD URINE NEGATIVE (NEGATIVE); PROTEIN URINE TRACE (NEGATIVE); SPECIFIC GRAVITY URINE 1.009 (1.005-1.030); UROBILINOGEN URINE 0.2 E.U./dL (0.2-1.0)
[2020-09-07 16:11] LABS: *AMPHETAMINES SCREEN URINE NEGATIVE (NEGATIVE)
[2020-09-07 16:12] LABS: *BARBITURATES SCREEN URINE NEGATIVE (NEGATIVE); *BENZODIAZEPINES SCREEN URINE NEGATIVE (NEGATIVE); *COCAINE SCREEN URINE PRESUMTIVE POSITIVE (NEGATIVE)
[2020-09-07 16:13] LABS: CANNABINOID URINE SCREEN NEGATIVE (NEGATIVE); METHADONE URINE SCREEN NEGATIVE (NEGATIVE); OPIATES URINE SCREEN NEGATIVE (NEGATIVE); PHENCYCLIDINE URINE SCREEN NEGATIVE (NEGATIVE)
[2020-09-07] MEDS: ALBUTEROL 6.7GM HFA INHALER ORI SCH ×2 (18:12→20:36)
[2020-09-07] MEDS: RIVAROXABAN 20 MG TABLET PO SCH (18:25)
[2020-09-07] MEDS: CEFTRIAXONE 1,000 MG in DEXTROSE 5% WATER 50 ML IV SCH (20:34)
[2020-09-07] MEDS: AZITHROMYCIN 500 MG TABLET PO SCH (20:34)
[2020-09-08] VITALS: BP 138/84
[2020-09-08] MEDS: DILTIAZEM HCL 60MG TABLET PO SCH ×5 (01:28→23:57)
[2020-09-08] MEDS: ALBUTEROL 6.7GM HFA INHALER ORI SCH ×4 (03:41→21:03)
[2020-09-08 04:00] VITALS: BP 136/81
[2020-09-08] MEDS: NITROGLYCERIN OINT 1GM/INCH UDPKT TD SCH ×3 (06:22→21:02)
[2020-09-08 08:00] VITALS: BP 140/95
[2020-09-08] MEDS: DEXAMETHASONE 10 MG/ML VIAL IV SCH (08:26)
[2020-09-08] MEDS: ASPIRIN 325MG EC TABLET PO SCH (08:27)
[2020-09-08] MEDS: ASCORBIC ACID 500 MG TABLET PO SCH ×2 (08:27→21:03)
[2020-09-08] MEDS: FAMOTIDINE 20MG TABLET PO SCH ×2 (08:27→21:03)
[2020-09-08] MEDS: DOCUSATE SODIUM 100MG CAPSULE PO PRN (08:27)
[2020-09-08] MEDS: ZINC SULFATE 220 MG ( 50 ) CAPSULE PO SCH (08:27)
[2020-09-08] MEDS: SPIRONOLACTONE 25MG TABLET PO SCH ×2 (08:27→21:03)
[2020-09-08] MEDS: FUROSEMIDE 40MG/4ML VIAL IVP SCH ×2 (08:27→21:02)
[2020-09-08 12:00] VITALS: BP 143/100
[2020-09-08] MEDS: CLONIDINE 0.1MG TABLET PO PRN (13:23)
[2020-09-08] MEDS: NA PHOS,M-B/NA PHOS,DI-BA ENEMA 118ML PR PRN (14:08)
[2020-09-08 16:00] VITALS: BP 139/108
[2020-09-08] MEDS: RIVAROXABAN 20 MG TABLET PO SCH (16:10)
[2020-09-08 20:00] VITALS: BP 169/102
[2020-09-08] MEDS: AZITHROMYCIN 500 MG TABLET PO SCH (21:06)
[2020-09-08] MEDS: CEFTRIAXONE 1,000 MG in DEXTROSE 5% WATER 50 ML IV SCH (21:07)
[2020-09-08] MEDS: ZOLPIDEM TARTRATE 5MG TABLET PO PRN (21:10)
[2020-09-09] VITALS: BP 132/73
[2020-09-09 04:00] VITALS: BP 162/105
[2020-09-09] MEDS: ALBUTEROL 6.7GM HFA INHALER ORI SCH ×4 (04:30→23:21)
[2020-09-09] MEDS: DILTIAZEM HCL 60MG TABLET PO SCH ×4 (05:16→23:21)
[2020-09-09] MEDS: NITROGLYCERIN OINT 1GM/INCH UDPKT TD SCH ×3 (05:17→22:06)
[2020-09-09] MEDS: FUROSEMIDE 40MG/4ML VIAL IVP SCH ×2 (09:12→22:07)
[2020-09-09] MEDS: DEXAMETHASONE 10 MG/ML VIAL IV SCH (09:12)
[2020-09-09] MEDS: FAMOTIDINE 20MG TABLET PO SCH ×2 (09:12→22:06)
[2020-09-09] MEDS: ASPIRIN 325MG EC TABLET PO SCH (09:13)
[2020-09-09] MEDS: ZINC SULFATE 220 MG ( 50 ) CAPSULE PO SCH (09:13)
[2020-09-09] MEDS: ASCORBIC ACID 500 MG TABLET PO SCH ×2 (09:13→22:06)
[2020-09-09] MEDS: CLONIDINE 0.1MG TABLET PO PRN ×2 (09:13→15:10)
[2020-09-09] MEDS: SPIRONOLACTONE 25MG TABLET PO SCH ×2 (09:13→22:06)
[2020-09-09 12:00] VITALS: BP 195/98
[2020-09-09 16:00] VITALS: BP 122/75
[2020-09-09] MEDS: RIVAROXABAN 20 MG TABLET PO SCH (16:27)
[2020-09-09 20:00] VITALS: BP 142/89
[2020-09-09 21:00] VITALS: BP 155/91
[2020-09-10] VITALS: BP 145/91
[2020-09-10] MEDS: ZOLPIDEM TARTRATE 5MG TABLET PO PRN (03:40)
[2020-09-10] MEDS: ALBUTEROL 6.7GM HFA INHALER ORI SCH ×2 (03:40→09:10)
[2020-09-10 04:00] VITALS: BP 141/92
[2020-09-10] MEDS: DILTIAZEM HCL 60MG TABLET PO SCH ×2 (06:30→11:24)
[2020-09-10] MEDS: NITROGLYCERIN OINT 1GM/INCH UDPKT TD SCH (06:30)
[2020-09-10 07:39] LABS: CHLORIDE 94 mEq/L (98-107)
[2020-09-10 08:40] VITALS: BP 164/112
[2020-09-10] MEDS: FUROSEMIDE 40MG/4ML VIAL IVP SCH (09:09)
[2020-09-10] MEDS: ASPIRIN 325MG EC TABLET PO SCH (09:09)
[2020-09-10] MEDS: SPIRONOLACTONE 25MG TABLET PO SCH (09:09)
[2020-09-10] MEDS: FAMOTIDINE 20MG TABLET PO SCH (09:09)
[2020-09-10] MEDS: ZINC SULFATE 220 MG ( 50 ) CAPSULE PO SCH (09:09)
[2020-09-10] MEDS: ASCORBIC ACID 500 MG TABLET PO SCH (09:09)
[2020-09-10 11:53] VITALS: BP 134/82
[2020-09-10 12:14] VITALS: BP 134/82
== END 2020-09-10 14:04 | disposition home or self-care (01) | DRG 720 ==
LOC: ER 14:13 → MICUSO 16:55 → SUPCPDRO 17:39 → EDBEDREQSVC 18:33 → 7WST 09-06 12:05 → 6WST 09-09 20:58
PROVIDERS: ADMIT Internal Medicine; ATTEND Internal Medicine
DX: A41.89 Other specified sepsis (principal); U07.1 COVID-19; J96.01 Acute respiratory failure with hypoxia; J12.82 Pneumonia due to coronavirus disease 2019; J44.0 Chronic obstructive pulmonary disease with (acute) lower respiratory infection; D63.8 Anemia in other chronic diseases classified elsewhere; E83.51 Hypocalcemia; F17.210 Nicotine dependence, cigarettes, uncomplicated; F14.90 Cocaine use, unspecified, uncomplicated; B19.20 Unspecified viral hepatitis C without hepatic coma; I13.0 Hypertensive heart and chronic kidney disease with heart failure and stage 1 through stage 4 chronic kidney disease, or unspecified chronic kidney disease; I25.10 Atherosclerotic heart disease of native coronary artery without angina pectoris; E11.22 Type 2 diabetes mellitus with diabetic chronic kidney disease; I50.43 Acute on chronic combined systolic (congestive) and diastolic (congestive) heart failure; J96.02 Acute respiratory failure with hypercapnia; I48.91 Unspecified atrial fibrillation; E43 Unspecified severe protein-calorie malnutrition; N18.9 Chronic kidney disease, unspecified; Z91.14 Patient's other noncompliance with medication regimen; Z90.2 Acquired absence of lung [part of]; Z86.11 Personal history of tuberculosis; Z68.32 Body mass index [BMI] 32.0-32.9, adult; Z91.11 Patient's noncompliance with dietary regimen; Z79.899 Other long term (current) drug therapy
CPT/HCPCS: 36415; 36600; 71045; 80048; 80053; 80061; 80305; 81003; 82375; 82550; 82553; 82805; 83036; 83605; 83735; 83880; 84100; 84145; 84484; 85025; 86850; 86900; 87426; 93005; 93970; 96374; 97162; 97166; 99291; J0456; J0696; J1100; J1940; J3490; J7040; J7060; U0003

== ENCOUNTER 2021-04-19 02:19 | Emergency (ER) | payer MEDICARE, MEDICAID ==
[~2021-04-19] VITALS: Ht 193 cm; Wt 113.0 kg
[~2021-04-19 02:19] MED LIST changes: +DOCU-268 PO; -DOCU-272 PO
[2021-04-19 02:31] VITALS: BP 168/105
== END 2021-04-19 03:58 | disposition left against medical advice (07) ==
LOC: ER 02:19
DX: Z53.21 Procedure and treatment not carried out due to patient leaving prior to being seen by health care provider (principal)

== ENCOUNTER 2021-06-23 17:40 | Inpatient (IN) | payer MEDICARE, MEDICAID ==
[~2021-06-23] VITALS: Ht 188 cm; Wt 102.1 kg
[2021-06-23] MEDS ORDERED: IPRATROPIUM BROMIDE (0.02%) 0.5MG/2.5ML NEB HHN STA (18:25)
[2021-06-23] MEDS ORDERED: ALBUTEROL (0.083%) 2.5MG/3ML NEB HHN STA (18:25)
[2021-06-23 18:43] LABS: BASOPHILS % 0.7 % (0.0-2.0); HEMOGLOBIN. 12.9 g/dL (14.0-18.0); LYMPHOCYTES % 20.6 % (20.0-50.0); MEAN CORPUSCULAR HEMOGLOBIN 30.4 pg (28.0-32.0); MEAN CORPUSCULAR VOLUME 92.3 fL (80.0-94.0); MEAN PLATELET VOLUME 9.9 fl (7.4-10.4); MONOCYTES % 10.6 % (2.0-8.0); NEUTROPHILS % 64.1 % (40.0-76.0); PLATELET 131 x1000/uL (130-400); RED BLOOD CELL COUNT 4.23 mill/uL (4.7-6.1); RED CELL DISTRIBUTION WIDTH 16.6 % (11.6-14.6)
[2021-06-23 18:48] LABS: CHLORIDE 106 mEq/L (98-107)
[2021-06-23] MEDS ORDERED: FUROSEMIDE 40MG/4ML VIAL IV ONE (23:30)
[2021-06-23] MEDS ORDERED: ASPIRIN 81MG TABLET PO ONE (23:30)
[2021-06-24] VITALS (7 sets, daily range): BP systolic 100–159; BP diastolic 59–150
[2021-06-24] MEDS ORDERED: ACETAMINOPHEN 325MG TABLET PO PRN (00:15)
[2021-06-24] MEDS ORDERED: ONDANSETRON HCL 4MG/2ML INJ IV PRN (00:15)
[2021-06-24] MEDS ORDERED: CLONIDINE 0.1MG TABLET PO PRN (00:30)
[2021-06-24] MEDS ORDERED: DILTIAZEM HCL 5MG/ML 5ML VIAL IV PRN (00:30)
[2021-06-24] MEDS: ENOXAPARIN 100MG/ML SYR SUBCUT SCH ×3 (01:31→20:12)
[2021-06-24 03:05] LABS: *BARBITURATES SCREEN URINE NEGATIVE (NEGATIVE); *BENZODIAZEPINES SCREEN URINE NEGATIVE (NEGATIVE); *COCAINE SCREEN URINE PRESUMTIVE POSITIVE (NEGATIVE); METHADONE URINE SCREEN NEGATIVE (NEGATIVE); OPIATES URINE SCREEN NEGATIVE (NEGATIVE)
[2021-06-24 03:06] LABS: *AMPHETAMINES SCREEN URINE NEGATIVE (NEGATIVE); CANNABINOID URINE SCREEN NEGATIVE (NEGATIVE); PHENCYCLIDINE URINE SCREEN NEGATIVE (NEGATIVE)
[2021-06-24] MEDS ORDERED: METOPROLOL TARTRATE 50MG TABLET PO SCH (09:00)
[2021-06-24] MEDS: ASPIRIN 81MG EC TABLET PO SCH (09:48)
[2021-06-24] MEDS: FUROSEMIDE 40MG/4ML VIAL IVP SCH ×2 (09:48→16:58)
[2021-06-24] MEDS: OMEPRAZOLE 20MG CAPSULE EXTENDED RELEASE PO SCH (09:48)
[2021-06-24] MEDS: LOSARTAN POTASSIUM 25 MG TABLET PO SCH (09:48)
[2021-06-24] MEDS: DILTIAZEM HCL 90MG TABLET PO SCH ×2 (12:58→16:58)
[2021-06-24] MEDS: IPRATROPIUM BROMIDE (0.02%) 0.5MG/2.5ML NEB HHN SCH ×3 (16:29→21:34)
[2021-06-24] MEDS: ATORVASTATIN CALCIUM 20MG TABLET PO SCH (20:12)
[2021-06-25] MEDS: IPRATROPIUM BROMIDE (0.02%) 0.5MG/2.5ML NEB HHN SCH ×6 (01:25→21:05)
[2021-06-25 04:00] VITALS: BP 117/68
[2021-06-25 05:27] LABS: CHLORIDE 103 mEq/L (98-107)
[2021-06-25 05:33] LABS: BASOPHILS % 0.7 % (0.0-2.0); EOSINOPHILS % 4.5 % (0.0-5.0); HEMATOCRIT. 37.7 % (42.0-52.0); HEMOGLOBIN. 12.9 g/dL (14.0-18.0); LYMPHOCYTES % 19.6 % (20.0-50.0); MEAN CORPUSCULAR HEMOGLOBIN 31.9 pg (28.0-32.0); MEAN CORPUSCULAR VOLUME 93.6 fL (80.0-94.0); MEAN PLATELET VOLUME 10.4 fl (7.4-10.4); MONOCYTES % 12.4 % (2.0-8.0); NEUTROPHILS % 62.8 % (40.0-76.0); PLATELET 136 x1000/uL (130-400); RED BLOOD CELL COUNT 4.03 mill/uL (4.7-6.1); RED CELL DISTRIBUTION WIDTH 16.2 % (11.6-14.6)
[2021-06-25] MEDS: DILTIAZEM HCL 90MG TABLET PO SCH ×5 (06:00→23:54)
[2021-06-25] MEDS: OMEPRAZOLE 20MG CAPSULE EXTENDED RELEASE PO SCH (06:21)
[2021-06-25 08:00] VITALS: BP 125/91
[2021-06-25] MEDS ORDERED: MAGNESIUM 2 G PREMIX 50 ML IV NR (08:00)
[2021-06-25] MEDS: FUROSEMIDE 40MG/4ML VIAL IVP SCH ×2 (10:07→17:14)
[2021-06-25] MEDS: ENOXAPARIN 100MG/ML SYR SUBCUT SCH ×2 (10:07→20:37)
[2021-06-25] MEDS: ASPIRIN 81MG EC TABLET PO SCH (10:07)
[2021-06-25] MEDS: LOSARTAN POTASSIUM 25 MG TABLET PO SCH (10:07)
[2021-06-25 12:00] VITALS: BP 118/83
[2021-06-25 16:00] VITALS: BP 140/87
[2021-06-25 20:00] VITALS: BP 113/58
[2021-06-25] MEDS: ATORVASTATIN CALCIUM 20MG TABLET PO SCH (20:38)
[2021-06-25] MEDS: FAMOTIDINE 20MG TABLET PO SCH (20:38)
[2021-06-25 23:51] VITALS: BP 144/79
[2021-06-26 04:00] VITALS: BP 120/77
[2021-06-26] MEDS: DILTIAZEM HCL 90MG TABLET PO SCH ×3 (05:35→17:30)
[2021-06-26] MEDS: IPRATROPIUM BROMIDE (0.02%) 0.5MG/2.5ML NEB HHN SCH ×3 (07:28→11:52)
[2021-06-26 08:00] VITALS: BP 131/77
[2021-06-26 08:51] LABS: HEMATOCRIT. 37.6 % (42.0-52.0); HEMOGLOBIN. 12.7 g/dL (14.0-18.0); MEAN CORPUSCULAR HEMOGLOBIN 31.3 pg (28.0-32.0); MEAN CORPUSCULAR VOLUME 92.7 fL (80.0-94.0); MEAN PLATELET VOLUME 10.2 fl (7.4-10.4); PLATELET 147 x1000/uL (130-400); RED BLOOD CELL COUNT 4.05 mill/uL (4.7-6.1); RED CELL DISTRIBUTION WIDTH 16.1 % (11.6-14.6)
[2021-06-26 09:12] LABS: CHLORIDE 102 mEq/L (98-107)
[2021-06-26] MEDS: ASPIRIN 81MG EC TABLET PO SCH (09:35)
[2021-06-26] MEDS: LOSARTAN POTASSIUM 25 MG TABLET PO SCH ×2 (09:35→17:00)
[2021-06-26] MEDS: FUROSEMIDE 40MG/4ML VIAL IVP SCH ×2 (09:35→17:25)
[2021-06-26] MEDS: FAMOTIDINE 20MG TABLET PO SCH ×2 (09:35→21:01)
[2021-06-26] MEDS: ENOXAPARIN 100MG/ML SYR SUBCUT SCH (09:36)
[2021-06-26 12:24] VITALS: BP 141/76
[2021-06-26] MEDS ORDERED: TRAMADOL 50MG TABLET PO PRN (13:00)
[2021-06-26 13:17] LABS: PLATELET ESTIMATE NORMAL
[2021-06-26] MEDS ORDERED: IPRATROPIUM BROMIDE (0.02%) 0.5MG/2.5ML NEB HHN PRN (13:45)
[2021-06-26] MEDS: POTASSIUM CHLORIDE 20MEQ/PACKET PO SCH (14:30)
[2021-06-26] MEDS ORDERED: NALOXONE HCL 0.4MG/ML VIAL IV PRN (15:45)
[2021-06-26 16:00] VITALS: BP 111/75
[2021-06-26 20:00] VITALS: BP 107/75
[2021-06-26] MEDS: ATORVASTATIN CALCIUM 20MG TABLET PO SCH (21:01)
[2021-06-26] MEDS: RIVAROXABAN 20 MG TABLET PO SCH (21:01)
[2021-06-27] VITALS (7 sets, daily range): BP systolic 113–137; BP diastolic 73–89
[2021-06-27] MEDS: DILTIAZEM HCL 90MG TABLET PO SCH ×5 (00:44→23:10)
[2021-06-27] MEDS: FAMOTIDINE 20MG TABLET PO SCH ×2 (09:26→21:13)
[2021-06-27] MEDS: POTASSIUM CHLORIDE 20MEQ/PACKET PO SCH (09:26)
[2021-06-27] MEDS: LOSARTAN POTASSIUM 25 MG TABLET PO SCH ×2 (09:27→18:23)
[2021-06-27] MEDS: FUROSEMIDE 40MG/4ML VIAL IVP SCH ×2 (09:27→18:23)
[2021-06-27 11:29] LABS: BASOPHILS % 0.5 % (0.0-2.0); EOSINOPHILS % 5.6 % (0.0-5.0); HEMATOCRIT. 41.8 % (42.0-52.0); HEMOGLOBIN. 13.6 g/dL (14.0-18.0); LYMPHOCYTES % 27.2 % (20.0-50.0); MEAN CORPUSCULAR HEMOGLOBIN 30.2 pg (28.0-32.0); MEAN CORPUSCULAR VOLUME 92.8 fL (80.0-94.0); MEAN PLATELET VOLUME 9.9 fl (7.4-10.4); MONOCYTES % 10.1 % (2.0-8.0); NEUTROPHILS % 56.6 % (40.0-76.0); PLATELET 155 x1000/uL (130-400); RED BLOOD CELL COUNT 4.51 mill/uL (4.7-6.1); RED CELL DISTRIBUTION WIDTH 15.9 % (11.6-14.6)
[2021-06-27 11:56] LABS: CHLORIDE 98 mEq/L (98-107)
[2021-06-27] MEDS ORDERED: MAGNESIUM 1 G PREMIX 100 ML IV NR (14:45)
[2021-06-27] MEDS ORDERED: POTASSIUM CHLORIDE 20MEQ TABLET SR PO NR (15:00)
[2021-06-27] MEDS: RIVAROXABAN 20 MG TABLET PO SCH (18:23)
[2021-06-27] MEDS: ATORVASTATIN CALCIUM 20MG TABLET PO SCH (21:13)
[2021-06-28 04:00] VITALS: BP 116/47
[2021-06-28] MEDS: DILTIAZEM HCL 90MG TABLET PO SCH ×2 (05:13→13:16)
[2021-06-28 06:34] LABS: HEMOGLOBIN 14.3 g/dL (14.0-18.0); MEAN CORPUSCULAR HEMOGLOBIN 31.1 pg (28.0-32.0); MEAN CORPUSCULAR VOLUME 93.7 fL (80.0-94.0); PLATELET 154 x1000/uL (130-400); RED BLOOD CELL COUNT 4.59 mill/uL (4.7-6.1)
[2021-06-28 06:38] LABS: CHLORIDE 101 mEq/L (98-107)
[2021-06-28 08:00] VITALS: BP 127/81
[2021-06-28] MEDS: FUROSEMIDE 40MG/4ML VIAL IVP SCH (08:33)
[2021-06-28] MEDS: LOSARTAN POTASSIUM 25 MG TABLET PO SCH (08:33)
[2021-06-28] MEDS: POTASSIUM CHLORIDE 20MEQ/PACKET PO SCH (08:34)
[2021-06-28] MEDS: FAMOTIDINE 20MG TABLET PO SCH (08:34)
[2021-06-28] MEDS ORDERED: ATOR20TA PO (11:16)
[2021-06-28] MEDS ORDERED: LOSA25TA3 PO (11:16)
[2021-06-28] MEDS ORDERED: FLUT1DIS3 INH (11:16)
[2021-06-28] MEDS ORDERED: RIVA20TA PO (11:16)
[2021-06-28] MEDS ORDERED: DILT90TA2 PO (11:16)
[2021-06-28] MEDS ORDERED: FAMO20TA8 PO (11:16)
[2021-06-28 11:26] VITALS: BP 127/81
[2021-06-28 12:00] VITALS: BP 105/64
== END 2021-06-28 13:56 | disposition home or self-care (01) | DRG 194 ==
LOC: ER 17:40 → 6WST 23:36 → ENRESERV 06-24 07:20
PROVIDERS: ADMIT Internal Medicine; ATTEND Internal Medicine
DX: I11.0 Hypertensive heart disease with heart failure (principal); I27.21 Secondary pulmonary arterial hypertension; I42.0 Dilated cardiomyopathy; I48.20 Chronic atrial fibrillation, unspecified; F14.10 Cocaine abuse, uncomplicated; J44.9 Chronic obstructive pulmonary disease, unspecified; B19.20 Unspecified viral hepatitis C without hepatic coma; F17.210 Nicotine dependence, cigarettes, uncomplicated; I25.10 Atherosclerotic heart disease of native coronary artery without angina pectoris; I73.9 Peripheral vascular disease, unspecified; E83.42 Hypomagnesemia; K52.9 Noninfective gastroenteritis and colitis, unspecified; Z79.84 Long term (current) use of oral hypoglycemic drugs; Z79.899 Other long term (current) drug therapy; Z82.49 Family history of ischemic heart disease and other diseases of the circulatory system; Z87.11 Personal history of peptic ulcer disease; I50.23 Acute on chronic systolic (congestive) heart failure
CPT/HCPCS: 36415; 71045; 74018; 80048; 80053; 80305; 83735; 83880; 84443; 84481; 84484; 85025; 85027; 93005; 93306; 93970; 94640; 99291; J1650; J1940; J3475; J3490

== ENCOUNTER 2022-01-29 23:57 | Emergency (ER) | payer MEDICAID, MEDICARE ==
[~2022-01-29] VITALS: Ht 182.9 cm; Wt 100.0 kg
[~2022-01-29 23:57] MED LIST changes: -ALBU18HF2 IH; -ALBU4TAB6 INH; +ALD50 MT; +APIX5TAB PO; +ATOR20TA PO; -CARV6.2548 MT; -COR3 PO; +DILT90TA2 PO; +FAMO20TA8 PO; -FERR220S12 PO; -FLUT1AER5 IH; -FURO-151 MT; +LOSA25TA3 PO; -LOSA50TA3 PO; -LOSA50TA41 MT
[2022-01-30] MEDS ORDERED: SODIUM CHLORIDE 0.9% 1000ML BAG (SEPSIS BOLUS) IV ONE (01:15)
[2022-01-30 01:23] LABS: BASOPHILS % 0.4 % (0.0-2.0); EOSINOPHILS % 2.2 % (0.0-5.0); HEMATOCRIT. 34.5 % (42.0-52.0); HEMOGLOBIN. 11.5 g/dL (14.0-18.0); LYMPHOCYTES % 19.7 % (20.0-50.0); MEAN CORPUSCULAR HEMOGLOBIN 29.6 pg (28.0-32.0); MEAN CORPUSCULAR VOLUME 88.8 fL (80.0-94.0); MEAN PLATELET VOLUME 9.6 fl (7.4-10.4); MONOCYTES % 9.6 % (2.0-8.0); NEUTROPHILS % 68.1 % (40.0-76.0); PLATELET 134 x1000/uL (130-400); RED BLOOD CELL COUNT 3.88 mill/uL (4.7-6.1); RED CELL DISTRIBUTION WIDTH 16.9 % (11.6-14.6)
[2022-01-30 01:31] LABS: CHLORIDE 109 mEq/L (98-107)
[2022-01-30 01:38] LABS: ETHANOL BLOOD < 10 mg/dL
[2022-01-30 01:40] LABS: INR 1.1
[2022-01-30 02:16] LABS: *AMPHETAMINES SCREEN URINE NEGATIVE (NEGATIVE); *BARBITURATES SCREEN URINE NEGATIVE (NEGATIVE); *BENZODIAZEPINES SCREEN URINE NEGATIVE (NEGATIVE); *COCAINE SCREEN URINE PRESUMTIVE POSITIVE (NEGATIVE); CANNABINOID URINE SCREEN NEGATIVE (NEGATIVE); METHADONE URINE SCREEN NEGATIVE (NEGATIVE); OPIATES URINE SCREEN NEGATIVE (NEGATIVE); PHENCYCLIDINE URINE SCREEN NEGATIVE (NEGATIVE)
[2022-01-30 04:00] VITALS: BP 120/66
== END 2022-01-30 04:15 | disposition home or self-care (01) ==
LOC: ER 23:57
DX: F14.10 Cocaine abuse, uncomplicated (principal); K92.0 Hematemesis; Z71.51 Drug abuse counseling and surveillance of drug abuser; Z87.11 Personal history of peptic ulcer disease
CPT/HCPCS: 36415; 80053; 80305; 80320; 83605; 83690; 85025; 85610; 86850; 86900; 86901; 96360; 99291; J7030; G0480